=== PATIENT | female | born 1955 | race Caucasian/White ===

== ENCOUNTER 2017-01-24 07:39 | Emergency (ER) | payer OTHER ==
--- NOTE | 2017-01-24 07:55 | EDPHY ---
H & P Stated Complaint: abdominal/flank pain, burning with urination Time Seen by Provider: 01/24/17 07:54 - Personal History Current Tetanus/Diphtheria Vaccine: Yes Current Tetanus Diphtheria and Acellular Pertussis (TDAP): Yes - Medical/Surgical History Hx Asthma: No Hx Chronic Respiratory Disease: No Hx Diabetes: Yes Hx Cardiac Disease: No Hx Renal Disease: No Hx Cirrhosis: No Hx Alcoholism: No Hx HIV/AIDS: No Hx Splenectomy or Spleen Trauma: No Other PMH: Ovarian ca, thyroid ca, hyperglycemia - Social History Smoking Status: Former smoker Constitutional: Initial Vital Signs Temperature (C) 37.1 C 01/24/17 07:43 Heart Rate 76 01/24/17 07:43 Respiratory Rate 18 01/24/17 07:43 Blood Pressure 136/81 H 01/24/17 07:43 O2 Sat (%) 94 01/24/17 07:43 O2 Delivery Mode Room Air Allergies/Adverse Reactions: No Known Allergies Allergy (Unverified 01/24/17 07:42) Home Medications: Medication Instructions Recorded Aspirin 81mg (*) 01/24/17 FLUoxetine 01/24/17 Nystatin 01/24/17 Synthroid 01/24/17 VITAMIN D 01/24/17 Vitamin B-12 01/24/17 Medical Decision Making - Diagnostics Imaging Results: Imaging Impressions Abdomen CT 01/24/17 08:15 Impression: 1. New large bilateral pelvic masses with associated peritoneal implants and implants throughout the abdominal wall are highly suspicious for recurrent metastatic ovarian neoplasm. 2. The bladder mass is deforming and compresses the urinary bladder and distal right ureter. Equivocal minimal obstruction of the upper right urinary tract. 3. Sigmoid diverticulosis. No acute bowel obstruction. 4. Suspect left adrenal gland metastasis. Findings discussed with Emergency Department physician, Aiden Caldwell M.D. on January 24, 2017 at 9:29 a.m. [id number]:l[facility] Imaging: Discussed imaging studies w/ call worker person Radiologist, I viewed and interpreted images myself ED Course/Re-evaluation: CHIEF COMPLAINT: Lower abdominal and back pain HISTORY OF PRESENT ILLNESS: The patient is a 61 y/o female complaining of lower abdominal and back pain for 2 days. She has also had painful urination, headaches, and nausea. She notes she has drank more caffeine than normal. She does take Vicodin for her ovarian cancer, but is not on chemotherapy now. The pain does not radiate to flank or upper abdomen. Denies vomiting, fever, paresthesias, hematuria, history of kidney stones or other pertinent symptoms. REVIEW OF SYSTEMS: A 10 point review of systems was performed and is negative with the exception of the elements mentioned in the history of present illness. PHYSICAL EXAM: HR, BP, O2 Sat, RR. Temp noted General Appearance: Alert, well hydrated, appropriate, and non-toxic appearing. Head: Atraumatic without scalp tenderness or obvious injury Eyes: Pupils equal, round, reactive to light and accommodation, EOMI, no trauma , no injection. Ears: Clear bilaterally, no perforation, normal landmarks Nose: Atraumatic, no rhinorrhea, clear. Throat: Mucus membranes moist. Neck: Supple, nontender, no lymphadenopathy. Respiratory: No retractions, no distress, no wheezes, and no accessory muscle use. Lungs are clear to auscultation bilaterally. Cardiovascular: Regular rate and rhythm, no murmurs, rubs, or gallops. Good capillary refill all extremities. Gastrointestinal: Bladder tenderness on palpation. Abdomen is soft, non- distended, no masses, no rebound, no guarding, no peritoneal signs. Musculoskeletal: Normal active ROM of all extremities, atraumatic. Neurological: Alert, appropriate, and interactive. Non-focal neuro Skin: No rashes, good turgor, no nodules on palpation. Past medical history: Ovarian cancer, thyroid cancer, hyperglycemia Past surgical history: Surgery for tumor removal Family history: Noncontributory Social history: Lives in [place], at bedside, former smoker DIAGNOSTICS/PROCEDURES/CRITICAL CARE TIME: Abdominopelvic CT: 2 pelvic metastases crushing the superior aspect of her bladder. DIFFERENTIAL DIAGNOSIS: The differential diagnosis for the patient's abdominal pain included but was not limited to metastatic ovarian mass, pelvic inflammatory disease, ovarian torsion, urinary tract infection, ectopic , cholecystitis, and appendicitis. MEDICAL DECISION MAKING: The patient is a 61 y/o female presenting with painful urination and lower abdomen and back pain. On exam she has bladder tenderness on palpation. Plan on labs to rule out UTI. 0813: Patient's urinalysis is negative for a UTI. Plan on abdominopelvic CT. 0915: Spoke with Dr. Cao, radiologist, he reports the patient has 2 pelvic metastases crushing the superior aspect of her bladder. Plan on calling her oncologist. 0932: Consulted with Dr. Calderon, oncologist, regarding the patients symptoms and imaging findings. He does not believe there is any treatment to do acutely. She will be seen as an outpatient with her oncologist. 1025: Reassessed patient and discussed imaging findings. She does not want more pain medication. Return precautions provided; patient is comfortable with this plan. - Data Points Laboratory Results: Laboratory Results 01/24/17 08:00 01/24/17 08:00 01/24/17 01/24/17 01/24/17 08:07 08:00 08:00 WBC RBC Hgb POC Hgb 14.3 gm/dL gm/dL (12.6-16.3) Hct POC Hct 42 % % (38-47) MCV MCH MCHC RDW Plt Count MPV Neut % (Auto) Lymph % (Auto) [place] % (Auto) Eos % (Auto) Baso % (Auto) Nucleat RBC Rel Count Absolute Neuts (auto) Absolute Lymphs (auto) Absolute Monos (auto) Absolute Eos (auto) Absolute Basos (auto) Absolute Nucleated RBC Immature Gran % Immature Gran # POC Sodium 138 mEq/L mEq/L (134-144) Sodium 137 mEq/L mEq/L (134-144) POC Potassium 4.2 mEq/L mEq/L (3.3-5.0) Potassium 5.1 mEq/L mEq/L (3.5-5.2) POC Chloride 100 mEq/L mEq/L (97-110) Chloride 102 mEq/L mEq/L (97-110) Carbon Dioxide 21 mEq/l L mEq/l (22-31) Anion Gap 14 mEq/L mEq/L (8-16) POC BUN 12 mg/dL mg/dL (7-23) BUN 12 mg/dL mg/dL (7-23) Creatinine 0.8 mg/dL mg/dL (0.6-1.0) POC Creatinine 0.8 mg/dL mg/dL (0.6-1.0) Estimated GFR > 60 Glucose 100 mg/dL mg/dL (70-100) POC Glucose 108 mg/dL H mg/dL (70-100) Calcium 7.3 mg/dL L mg/dL (8.5-10.4) Total Bilirubin 1.5 mg/dL H mg/dL (0.1-1.4) Conjugated Bilirubin 0.7 mg/dL H mg/dL (0.0-0.5) Unconjugated Bilirubin 0.8 mg/dL mg/dL (0.0-1.1) AST 37 IU/L IU/L (14-46) ALT 21 IU/L IU/L (9-52) Alkaline Phosphatase 80 IU/L IU/L (38-126) Total Protein 7.6 g/dL g/dL (6.3-8.2) Albumin 4.1 g/dL g/dL (3.5-5.0) Lipase 67 IU/L IU/L (23-300) Specimen Hemolysis 170 Urine Color YELLOW Urine Appearance CLEAR Urine pH 6.0 (5.0-7.5) Ur Specific [place] 1.013 (1.002-1.030) Urine Protein NEGATIVE (NEGATIVE) Urine Ketones NEGATIVE (NEGATIVE) Urine Blood NEGATIVE (NEGATIVE) Urine Nitrate NEGATIVE (NEGATIVE) Urine Bilirubin NEGATIVE (NEGATIVE) Urine Urobilinogen 4.0 EU H EU (0.2-1.0) Ur Leukocyte Esterase NEGATIVE (NEGATIVE) Urine RBC 1-3 /hpf /hpf (0-3) Urine WBC NONE SEEN /hpf /hpf (0-3) Ur Epithelial Cells TRACE /lpf /lpf (NONE-1+) Urine Bacteria TRACE /hpf H /hpf (NONE SEEN) Urine Mucus TRACE /lpf /lpf (NONE-1+) Urine Glucose NEGATIVE (NEGATIVE) 01/24/17 08:00 WBC 11.68 10^3/uL H 10^3/uL (3.80-9.50) RBC 4.72 10^6/uL 10^6/uL (4.18-5.33) Hgb 14.2 g/dL g/dL (12.6-16.3) POC Hgb Hct 41.1 % % (38.0-47.0) POC Hct MCV 87.1 fL fL (81.5-99.8) MCH 30.1 pg pg (27.9-34.1) MCHC 34.5 g/dL g/dL (32.4-36.7) RDW 14.6 % % (11.5-15.2) Plt Count 236 10^3/uL 10^3/uL (150-400) MPV 9.3 fL fL (8.7-11.7) Neut % (Auto) 83.3 % H % (39.3-74.2) Lymph % (Auto) 7.8 % L % (15.0-45.0) [place] % (Auto) 6.8 % % (4.5-13.0) Eos % (Auto) 1.1 % % (0.6-7.6) Baso % (Auto) 0.7 % % (0.3-1.7) Nucleat RBC Rel Count 0.0 % % (0.0-0.2) Absolute Neuts (auto) 9.74 10^3/uL H 10^3/uL (1.70-6.50) Absolute Lymphs (auto) 0.91 10^3/uL L 10^3/uL (1.00-3.00) Absolute Monos (auto) 0.79 10^3/uL 10^3/uL (0.30-0.80) Absolute Eos (auto) 0.13 10^3/uL 10^3/uL (0.03-0.40) Absolute Basos (auto) 0.08 10^3/uL 10^3/uL (0.02-0.10) Absolute Nucleated RBC 0.00 10^3/uL 10^3/uL (0-0.01) Immature Gran % 0.3 % % (0.0-1.1) Immature Gran # 0.03 10^3/uL 10^3/uL (0.00-0.10) POC Sodium Sodium POC Potassium Potassium POC Chloride Chloride Carbon Dioxide Anion Gap POC BUN BUN Creatinine POC Creatinine Estimated GFR Glucose POC Glucose Calcium Total Bilirubin Conjugated Bilirubin Unconjugated Bilirubin AST ALT Alkaline Phosphatase Total Protein Albumin Lipase Specimen Hemolysis Urine Color Urine Appearance Urine pH Ur Specific [place] Urine Protein Urine Ketones Urine Blood Urine Nitrate Urine Bilirubin Urine Urobilinogen Ur Leukocyte Esterase Urine RBC Urine WBC Ur Epithelial Cells Urine Bacteria Urine Mucus Urine Glucose Point of Care Test Results: 01/24/17 08:07 POC Sodium 138 POC Potassium 4.2 POC Chloride 100 POC BUN 12 POC Creatinine 0.8 POC Glucose 108 H Departure - Departure Disposition: Home, Routine, Self-Care 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 Follow up with your oncologist early next week. 2. No work until cleared by Dr. Langley 3. Return to the Emergency Department for fever, worsening pain, flank pain, bowel difficulties or failure to improve within 72 hours. Referrals: Monica Shultz MD [Primary Care Provider] - As per Instructions AndJuan bautista MD [Medical Doctor] - As per Instructions Stand Alone Forms: Work Excuse Report Scribed for: Aiden Caldwell Report Scribed by: Ludy Carreon Date of Report: 01/24/17 Time of Report: 07:56
[2017-01-24 08:08] LABS: COLOR YELLOW; LEUKOCYTE ESTERASE,URINE NEGATIVE (NEGATIVE); NITRITE,URINE NEGATIVE (NEGATIVE)
[2017-01-24 08:13] LABS: BACTERIA TRACE /hpf (NONE SEEN); MUCUS TRACE /lpf (NONE-1+)
[2017-01-24 08:14] LABS: WBC,URINE NONE SEEN /hpf (0-3)
[2017-01-24 08:16] LABS: % IMMATURE GRANULYOCYTES 0.3 % (0.0-1.1); ABSOLUTE IMMATURE GRANULOCYTES 0.03 10^3/uL (0.00-0.10); ADD DIFF? NO; ADD MORPH? NO; ADD SCAN? NO; ATYPICAL LYMPHOCYTE FLAG 0 (0-99); FRAGMENT RBC FLAG 0 (0-99); HEMATOCRIT 41.1 % (38.0-47.0); HEMOGLOBIN 14.2 g/dL (12.6-16.3); LEFT SHIFT FLG 0 (0-99); LIPEMIA HEMOLYSIS FLAG 90 (0-99); MEAN CELL HEMOGLOBIN 30.1 pg (27.9-34.1); MEAN CELL HEMOGLOBIN CONCENTR. 34.5 g/dL (32.4-36.7); MEAN CELL VOLUME 87.1 fL (81.5-99.8); MEAN PLATELET VOLUME 9.3 fL (8.7-11.7); PLATELET CLUMPS FLAG 10 (0-99); PLATELET COUNT 236 10^3/uL (150-400); RED BLOOD CELL COUNT 4.72 10^6/uL (4.18-5.33); RED CELL DISTRIBUTION WIDTH 14.6 % (11.5-15.2)
[2017-01-24 08:27] LABS: ALANINE AMINOTRANSFERASE 21 IU/L (9-52); ALBUMIN 4.1 g/dL (3.5-5.0); ALKALINE PHOSPHATASE 80 IU/L (38-126); ANION GAP 14 mEq/L (8-16); ASPARTATE AMINOTRANSFERASE 37 IU/L (14-46); BILIRUBIN,TOTAL 1.5 mg/dL (0.1-1.4); BILIRUBIN-CONJUGATED 0.7 mg/dL (0.0-0.5); BILIRUBIN-UNCONJUGATED 0.8 mg/dL (0.0-1.1); CALCIUM 7.3 mg/dL (8.5-10.4); CARBON DIOXIDE 21 mEq/l (22-31); CHLORIDE 102 mEq/L (97-110); CREATININE 0.8 mg/dL (0.6-1.0); GLOMERULAR FILTRATION RATE > 60; GLUCOSE 100 mg/dL (70-100); POTASSIUM 5.1 mEq/L (3.5-5.2); SODIUM 137 mEq/L (134-144); SPECIMEN HEMOLYSIS 170; TOTAL PROTEIN 7.6 g/dL (6.3-8.2)
[2017-01-24] MEDS ORDERED: IOPAMIDOL (ISOVUE-300) 100 ML BTL ONE (08:47)
[2017-01-24 10:38] VITALS: BP 145/79; PULSE 68; RESP 16; TEMP 98.4; O2SAT 95
== END 2017-01-24 10:39 | disposition home or self-care (01) ==
DX: C79.60 Secondary malignant neoplasm of unspecified ovary (principal); C80.1 Malignant (primary) neoplasm, unspecified; E11.9 Type 2 diabetes mellitus without complications; Z79.82 Long term (current) use of aspirin; Z85.850 Personal history of malignant neoplasm of thyroid; Z87.891 Personal history of nicotine dependence
CPT/HCPCS: 82947-QW; Q9967

== ENCOUNTER 2017-06-28 06:09 | Inpatient (IN) | payer OTHER ==
--- NOTE | 2017-06-28 06:44 | EDPHY ---
H & P Stated Complaint: EPIGASTRIC PAIN X 4 DAYS, N/V BILE X 1 DAY Time Seen by Provider: 06/28/17 06:41 - Personal History Current Tetanus Diphtheria and Acellular Pertussis (TDAP): Yes - Medical/Surgical History Hx Asthma: No Hx Chronic Respiratory Disease: No Hx Diabetes: Yes Hx Cardiac Disease: No Hx Renal Disease: No Hx Cirrhosis: No Hx Alcoholism: No Hx HIV/AIDS: No Hx Splenectomy or Spleen Trauma: No Other PMH: Ovarian ca, thyroid ca, hyperglycemia, TUMOR REMOVAL SX - Social History Smoking Status: Current some day smoker Constitutional: Initial Vital Signs Temperature (C) 36.6 C 06/28/17 06:16 Heart Rate 89 06/28/17 06:16 Respiratory Rate 16 06/28/17 06:16 Blood Pressure 121/71 H 06/28/17 06:16 O2 Sat (%) 95 06/28/17 06:16 O2 Delivery Mode Nasal Cannula O2 (L/minute) 2 Allergies/Adverse Reactions: No Known Allergies Allergy (Verified 06/28/17 06:15) Home Medications: Medication Instructions Recorded Aspirin 81mg (*) 01/24/17 FLUoxetine 01/24/17 Nystatin 01/24/17 Synthroid 01/24/17 VITAMIN D 01/24/17 Vitamin B-12 01/24/17 Medical Decision Making - Diagnostics Imaging: Discussed imaging studies w/ call center recruiter Radiologist, I viewed and interpreted images myself ED Course/Re-evaluation: CHIEF COMPLAINT: Abdominal pain x4 days nausea and vomiting times 24 hr HISTORY OF PRESENT ILLNESS: 62-year-old female with a history of ovarian cancer. She has had 2 surgeries to remove the ovarian cancer after initial recurrence however they were only able to remove part of the cancer on the 2nd surgery. She has been having abdominal pain and saw her doctor recently. They recognize that it is abdominal tumor causing the pain. Additionally, she was told to come to the hospital as she developed a nausea vomiting or obstructive type symptoms which she has now. She has not had a bowel movement in 2 days she think she still passing a small amount of gas. REVIEW OF SYSTEMS: A 10 point review of systems was performed and is negative with the exception of the elements mentioned in the history of present illness. PHYSICAL EXAM: HR, BP, O2 Sat, RR. Temp noted General Appearance: Alert, well hydrated, appropriate, and non-toxic appearing. Head: Atraumatic without scalp tenderness or obvious injury Eyes: Pupils equal, round, reactive to light and accommodation, EOMI, no trauma , no injection. Nose: Atraumatic, no rhinorrhea, clear. Throat: Mmucus membranes moist. Neck: Supple, nontender, no lymphadenopathy. Respiratory: No retractions, no distress, no wheezes, and no accessory muscle use. Lungs are clear to auscultation bilaterally. Cardiovascular: Regular rate and rhythm, no murmurs, rubs, or gallops. Good capillary refill all extremities. Gastrointestinal: Abdomen is soft, nontender, non-distended, no masses, no rebound, no guarding, no peritoneal signs. Musculoskeletal: Normal active ROM of all extremities, atraumatic. Neurological: Alert, appropriate, and interactive. The patient has non-focal cranial nerves, motor, sensory, and cerebellar exam. Skin: No rashes, good turgor, no nodules on palpation. Past medical history: Ovarian cancer Past surgical history: Tumor exoneration surgery it and cholecystectomy Family history: Noncontributory Social history: , employed, does not abuse tobacco drugs or alcohol DIAGNOSTICS/PROCEDURES/CRITICAL CARE TIME: Study: CT of the abdomen and pelvis with IV contrast Indication: Worsening abdominal pain, nausea vomiting with known ovarian cancer rule out obstruction Results: CT scan of the body parts was obtained. The results of the study are small bowel obstruction of ileum due to tumor progress. The study was read by the radiologist, Dr. Peterson. I viewed the images myself on the PACS system. DIFFERENTIAL DIAGNOSIS: The differential diagnosis for the patient's abdominal pain included but was not limited to pelvic inflammatory disease, bowel obstructions secondary to adhesions from her surgeries, urinary tract infection, tumor progression, and appendicitis. MEDICAL DECISION MAKING: This patient is having worsening abdominal pain and nausea and vomiting most likely secondary to progression of her abdominal tumor from ovarian cancer. She does have obstructive type symptoms without any bowel movements for 2 days and very minimal amount of flatus. She started vomiting 24 hr ago and has had abdominal pain for approximately 4-[address] scan was last January. She has also had numerous surgeries and she could have an adhesive process causing obstruction also. CT scan laboratory studies are pending. I will give the patient 1 mg of Dilaudid and 4 mg of Zofran and intravenous fluids. 0752: Reassessed patient and discussed imaging results. CT shows small bowel obstruction of ileum due to tumor. Patient had prior surgeries at [facility] with Dr. Grossman. 0805: Consulted with Dr. Owens, oncology. She recommends admission here and their service will determine management with surgery and chemotherapy. NG tube ordered. Spoke with hospitalist service. Dr. Barry accepts admission. - Data Points Laboratory Results: Laboratory Results 06/28/17 06:52 06/28/17 06:52 06/28/17 06/28/17 06/28/17 06:54 06:52 06:52 WBC RBC Hgb POC Hgb 13.9 gm/dL gm/dL (12.6-16.3) Hct POC Hct 41 % % (38-47) MCV MCH MCHC RDW Plt Count MPV Neut % (Auto) Lymph % (Auto) [place] % (Auto) Eos % (Auto) Baso % (Auto) Nucleat RBC Rel Count Absolute Neuts (auto) Absolute Lymphs (auto) Absolute Monos (auto) Absolute Eos (auto) Absolute Basos (auto) Absolute Nucleated RBC Immature Gran % Immature Gran # PT 16.5 SEC H SEC (12.0-15.0) INR 1.31 H (0.83-1.16) APTT 43.9 SEC H SEC (23.0-38.0) POC Sodium 139 mEq/L mEq/L (135-145) Sodium 141 mEq/L mEq/L (135-145) POC Potassium 3.7 mEq/L mEq/L (3.3-5.0) Potassium 3.8 mEq/L mEq/L (3.5-5.2) POC Chloride 103 mEq/L mEq/L (97-110) Chloride 103 mEq/L mEq/L (97-110) Carbon Dioxide 19 mEq/l L mEq/l (22-31) Anion Gap 19 mEq/L H mEq/L (8-16) POC BUN 11 mg/dL mg/dL (7-23) BUN 12 mg/dL mg/dL (7-23) Creatinine 0.8 mg/dL mg/dL (0.6-1.0) POC Creatinine 0.9 mg/dL mg/dL (0.6-1.0) Estimated GFR > 60 Glucose 138 mg/dL H mg/dL (70-100) POC Glucose 155 mg/dL H mg/dL (70-100) Calcium 6.5 mg/dL L mg/dL (8.5-10.4) Total Bilirubin 1.2 mg/dL mg/dL (0.1-1.4) Conjugated Bilirubin 0.7 mg/dL H mg/dL (0.0-0.5) Unconjugated Bilirubin 0.5 mg/dL mg/dL (0.0-1.1) AST 20 IU/L IU/L (14-46) ALT 41 IU/L IU/L (9-52) Alkaline Phosphatase 98 IU/L IU/L (38-126) Total Protein 6.7 g/dL g/dL (6.3-8.2) Albumin 3.7 g/dL g/dL (3.5-5.0) Lipase 42 IU/L IU/L (23-300) 06/28/17 06:52 WBC 17.17 10^3/uL H 10^3/uL (3.80-9.50) RBC 4.52 10^6/uL 10^6/uL (4.18-5.33) Hgb 12.7 g/dL g/dL (12.6-16.3) POC Hgb Hct 37.8 % L % (38.0-47.0) POC Hct MCV 83.6 fL fL (81.5-99.8) MCH 28.1 pg pg (27.9-34.1) MCHC 33.6 g/dL g/dL (32.4-36.7) RDW 13.9 % % (11.5-15.2) Plt Count 332 10^3/uL 10^3/uL (150-400) MPV 8.9 fL fL (8.7-11.7) Neut % (Auto) 88.9 % H % (39.3-74.2) Lymph % (Auto) 3.8 % L % (15.0-45.0) [place] % (Auto) 6.1 % % (4.5-13.0) Eos % (Auto) 0.2 % L % (0.6-7.6) Baso % (Auto) 0.5 % % (0.3-1.7) Nucleat RBC Rel Count 0.0 % % (0.0-0.2) Absolute Neuts (auto) 15.28 10^3/uL H 10^3/uL (1.70-6.50) Absolute Lymphs (auto) 0.65 10^3/uL L 10^3/uL (1.00-3.00) Absolute Monos (auto) 1.04 10^3/uL H 10^3/uL (0.30-0.80) Absolute Eos (auto) 0.04 10^3/uL 10^3/uL (0.03-0.40) Absolute Basos (auto) 0.08 10^3/uL 10^3/uL (0.02-0.10) Absolute Nucleated RBC 0.00 10^3/uL 10^3/uL (0-0.01) Immature Gran % 0.5 % % (0.0-1.1) Immature Gran # 0.08 10^3/uL 10^3/uL (0.00-0.10) PT INR APTT POC Sodium Sodium POC Potassium Potassium POC Chloride Chloride Carbon Dioxide Anion Gap POC BUN BUN Creatinine POC Creatinine Estimated GFR Glucose POC Glucose Calcium Total Bilirubin Conjugated Bilirubin Unconjugated Bilirubin AST ALT Alkaline Phosphatase Total Protein Albumin Lipase Medications Given: Discontinued Medications Hydromorphone HCl (Dilaudid) 1 mg IVP EDNOW ONE Stop: 06/28/17 06:48 Last Admin: 06/28/17 07:51 Dose: 1 mg Sodium Chloride (Ns) 1,000 mls @ 0 mls/hr IV EDNOW ONE; Wide Open PRN Reason: Protocol Stop: 06/28/17 06:48 Last Admin: 06/28/17 07:50 Dose: 1,000 mls Ondansetron HCl (Zofran) 4 mg IVP EDNOW ONE Stop: 06/28/17 06:48 Last Admin: 06/28/17 07:50 Dose: 4 mg Point of Care Test Results: 06/28/17 06:54 POC Sodium 139 POC Potassium 3.7 POC Chloride 103 POC BUN 11 POC Creatinine 0.9 POC Glucose 155 H Departure - Departure Disposition: [facility] Inpatient Acute Clinical Impression: Small bowel obstruction Ovarian cancer Qualifiers: Laterality: unspecified laterality Qualified Code(s): C56.9 - Malignant neoplasm of unspecified ovary Condition: Fair Referrals: Monica Shultz MD [Primary Care Provider] - As per Instructions
[2017-06-28] MEDS ORDERED: NS 1,000 ML IV ONE (06:47)
[2017-06-28] MEDS ORDERED: HYDROmorphONE/DILAUDID 2 MG/ML INJ IVP ONE (06:47)
[2017-06-28] MEDS ORDERED: ONDANSETRON 4 MG/2 ML VIAL IVP ONE ×2 (06:47→08:49)
[2017-06-28 07:01] LABS: PLATELET COUNT 332 10^3/uL (150-400)
[2017-06-28] MEDS ORDERED: IOPAMIDOL (ISOVUE-300) 100 ML BTL ONE (07:14)
[2017-06-28 07:15] LABS: INR 1.31 (0.83-1.16); PROTIME(PATIENT) 16.5 SEC (12.0-15.0)
[2017-06-28] MEDS ORDERED: LIDOCAINE 2% JELLY 20 ML (UROJECT) ONE (08:41)
[2017-06-28] MEDS ORDERED: HYDROmorphONE/DILAUDID 1 MG/ML INJ IVP ONE (08:49)
[2017-06-28] MEDS ORDERED: HYDROmorphONE/DILAUDID 2 MG/ML INJ ONE (08:51)
[2017-06-28] MEDS ORDERED: ONDANSETRON 4 MG/2 ML VIAL ONE (08:52)
[2017-06-28] MEDS ORDERED: ONDANSETRON DISINTEGRATING 4 MG TAB PO PRN (11:01)
[2017-06-28] MEDS: HYDROmorphone HCL/NS 0.5 MG/ML SYR IVP PRN ×3 (12:03→19:56)
[2017-06-28] MEDS: ONDANSETRON 4 MG/2 ML VIAL IVP PRN ×3 (12:04→19:55)
[2017-06-28] MEDS: NS 1,000 ML IV SCH ×2 (12:10→16:52)
[2017-06-28] MEDS: CEPACOL LOZENGE PO PRN ×3 (12:24→16:51)
--- NOTE | 2017-06-28 12:52 | GCON ---
[f rep st] CONSULTATION DATE OF CONSULTATION: 06/28/2017 REQUESTING PHYSICIAN: Jose Mchugh MD. REASON FOR CONSULTATION: Patient known to Dr. Langley with granulosa-theca cell tumor of the ovary. She presents today with small bowel obstruction. 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 The patient was initially treated with surgical debulk ing with Dr. Grossman in 2007. She had an R0 resection. She had adjuvant chemotherapy in the form of carboplatin/Taxol at that time and then was free of disease until 2012. In 2012, and then again in 2 015, she had local recurrences and was taken back to surgery by Dr. Grossman. I reviewed her most rece nt path from 2014, again consistent with malignant granulosa cell adult tumor. I will mention that h er previous surgeries have been for bowel obstructions in the past. She was most recently seen at our [facility] office on 06/25/2017, she was complaining of some abdominal florencia n for the past [address] scan in January of 2017 was noted. This showed new large bilater al pelvic masses with associated peritoneal and anterior abdominal wall implants, suspicious for recu rrent metastatic ovarian neoplasm. Pelvic mass is deforming compressed urinary bladder and right dis jeremiah ureter. No acute bowel obstruction was seen. Suspect left adrenal gland metastasis. The large cystic mass along the left external iliac vein measured 10 x 8 x 9.6 and displaces the sigmoid colon anteriorly. She had other large masses noted. For the past 3 days, she has had no bowel movements and minimal intake, nausea and vomiting. Her abd ominal CT here done this morning shows small bowel obstruction of the ileum due to tumor progression. The patient currently has an NG tube, IV fluids, and pain control. REVIEW OF SYSTEMS: As per HPI. Otherwise, review of systems negative. She denies fever, shortness of breath, or lower extremity edema. 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 She also has a history of diabetes and gastritis. FAMILY HISTORY: Noncontributory. She has had genetic testing in the past and this was negative. PAST SURGICAL HISTORY: As per HPI. SOCIAL HISTORY: No tobacco, alcohol or drugs. She is accompanied by her today. MEDICATIONS: Have been reviewed in the EMR. PHYSICAL EXAM: VITAL SIGNS: Blood pressure 143/59, pulse is 72 respiration rate 12, saturating 96% on 2 L nasal cannula, temp 36.8. GENERAL: She looks her stated age, uncomfortable, in moderate dist ress due to NG tube and abdominal pain. HEENT: Anicteric. Oropharynx is clear. HEART: Regular ra te and rhythm. LUNGS: Clear anteriorly. ABDOMEN: Distended, but soft. Bowel sounds are minimal. EXTREMITIES: No significant edema. LABS: WBC 17.1, hemoglobin 12.7, platelet count of 332,000. INR 1.3. Sodium 139, potassium 3.8, cr eatinine 0.8, calcium 6.5, total bilirubin 1.2. AST, ALT, lipase, and albumin all within normal limi ts. ASSESSMENT AND PLAN: The patient is a 62-year-old woman known to our service with history of FIGO st age IIIC granulosa-theca cell tumor of the ovary. She has had 2 subsequent surgeries after original diagnosis for obstructive symptoms. She presents again today for small bowel obstruction. 1. Small bowel obstruction. This is a difficult situation. I have reviewed her films with Dr. Ceci Ng. Granulosa cell tumors tend to have lower response to chemotherapy than epithelial tumors. In addition, the size of the tumors are worrisome that even if we give chemo for anatomical obstructi on, this will not cause significant reduction in the size of the known tumors. That being said, this would also be a challenging surgery given the size of the tumors and prior surgeries and risk of adh esions. I think this will need to be a multi-disciplinary decision. One thought may be 1 more surge ry for acute issue and then after surgery, watching her very closely and any new growth would then be challenged with chemotherapy. She could be rechallenged with carboplatin/Taxol, Taxotere, single ag ent bevacizumab or even a thought to put her on an aromatase inhibitor if she is ER positive on path. Dr. Lara Ng will see her in consultation today. In the meantime, we will continue NG tube, IV fluids, and pain control. 2. Ovarian cancer. Granulosa cell tumor as described above. Only previous chemotherapy was in 2007 . She received carboplatin/Taxol for several months. Unsure if she had a response or not, but it to ok her until 2002 to recur, which tends to be very typical of granulosa cell tumors. They are less r esponsive to chemotherapy, but I have had some success in the past and would not take this out of con sideration. 3. Pain due to #1. Continue pain control. 4. History of hyperglycemia. Monitor. Our team will continue to follow along. More than 45 minutes was spent with patient counseling, coor dinating care, and additional talking to surgical consult, medical hospitalist, and nursing staff. /[id number]/MODL
--- NOTE | 2017-06-28 13:15 | PDGENHP ---
History and Physical History and Physical: CC: abdominal pain HISTORY:This patient with known ovarian cancer comes in with a few days of worsening diffuse abdominal pain, nausea, vomiting and no bowel movement. No fever or bleeding, no other acute symptoms. She has a thecal granulosa cell cancer diagnosed in 2012, grade 2 stage IIIC, with two prior surgical resections with debulking, no history of bowel obstruction episodes. She is not on any chemotherapy at present. She last saw Dr Langley in April, and I reviewed the clinic note - there was known intraperitoneal disease, symptoms of mild brief abdominal discomfort 2 or so times a week, but she was thriving well , eating well, with no weight loss and having good bowel function. She apparently had a recent surgical evaluation, and the recommendation was no surgery in the absence of obstruction or other acute need, as there did not seem at that time to be a likely benefit. Ongoing conservative tx was recommended. Notably she also has a hx of stage III medullary thyroid cancer treated in 2007 and is in ongoing remission. Re: surgical fitness/risk eval: No problems with her prior anesthesias, no symptoms or history of heart disease or lung disease but had SHAHIDA not using CPAP and is a former smoker. Bowls weekly without issues, climbs stairs with no cardiopulm sxs, vacuums, does other housework without issues. No hx of thromboembolic dz or bleeding problems. No hx of liver or renal dz, no allergies. ROS: A comprehensive 10 system review revealed no other significant findings PAST MEDICAL HISTORY: Cancers as above SHAHIDA (not using cpap) obesity DM2 depression vitamin D deficiency past tobacco abuse FAMILY MEDICAL HISTORY: Cancers of Lung, prostate, breast, bladder, and esophagus Heart disease SOCIAL HISTORY: to Oscar,,who is at her side now and very supportive former smoker no alcohol or street drugs MEDICATIONS: The patients list has been reconciled by our clinical pharmacist in the EMR. I have reviewed the list; none of these are ordered now due to her obstruction PHYSICAL EXAMINATION: Vital Signs:all stable without fever Examination: General: alert, oriented, good mentation, relaxed Notable obesity Skin: warm, dry, good color, no rash or jaundice HEENT: normal Neck: no mass or jvd; well healed scar from thyroidectomy Resps: relaxed Lungs: diminished but otherwise clear breath sounds Heart: regular, no murmur Abdomen: soft, distended, +BS, mildly tender at this time (after narcotic and with NG to suction) Upper Extremities: normal Lower Extremities: no edema, warm No Bleeding or bruising Neurologic: normal speech/language, normal director specialty, no focal weakness IV site: looks normal LABORATORY DATA: I reviewed CBC, chemistries, coagulation studies. At this point there are some expected abnormalities of sugar and bicarbonate and high white blood cell count but nothing of concern of the needs any treatment or attention at the moment, nothing that would interfere with safe surgery or anesthesia. RADIOLOGY STUDIES: I reviewed the images of her CT scan of abdomen pelvis done today. There are numerous masses within the lower abdomen and other parts of the abdomen to which are quite large the largest around 10 cm diameter. There is clearly a small-bowel obstruction with a transition point. There is nothing to suggest any kind of perforation or abscess. I reviewed the images with Dr. Rojas in his looked at past CTs and there is certainly some progression of disease compared to the last CT. I have also reviewed chest x-ray images done today. The quality of images is somewhat compromised by her obesity but there are no acute cardiopulmonary or other concerning abnormalities. She has an NG tube in place that is difficult to read in terms of the position of the terminus. ASSESSMENT: -Acute small bowel obstruction related to progressive ovarian cancer and previous surgeries for the same -mild dehydration to the above -progressive thecal granulosa cell ovarian cancer -history of sleep apnea, not using CPAP at home -former smoking history but no diagnosis of COPD, no hypoxia, no respiratory symptoms at her current levels of physical activity -type 2 diabetes mellitus with mild elevation of glucose at this time I reviewed these case in detail with Dr. Lauren Owens. Dr. Rojas and has also reviewed the case with Dr. Hyun Ng. At this point the patient has clear cut small-bowel obstruction with progression of tumor and history of surgeries and very likely has significant amount of adhesion. While it is possible that this could be initially treated conservatively and she could potentially even open up this obstruction, I think that the chances of that are certainly fairly limited. Additionally given her progressive tumor disease would expect her to continue to have recurrent bowel obstructions. Additionally as who tumor disease progresses she could get to a point where she has obstructions that would be irreversible. As the patient has really not had medical treatment for her tumor there would be some hope of reducing tumor size but she has very large tumors at this point. I believe the most likely way to successfully reversed her bowel obstruction now and prevent or delay future bowel obstruction in in particular and irreversible bowel obstruction would be to approach her surgically at this time. If she were able to successfully be reversed at this time and debulked at the same time, she could potentially be a candidate for medical therapy for her tumor to keep her disease at [place] and bowel functioning for the longest time. SURGERY AND ANESTHESIA RISK ASSESSMENT: -major issues at this time are history of smoking and sleep apnea, both of which are stable and asymptomatic. These should not delay or prevent surgery but she will need to be monitored carefully in the postop setting with some risk of postoperative respiratory complication -at the moment no other significant specific issues that need to be stabilized or further assessed before safely proceeding with anesthesia and surgery PLANS: -inpatient admission to cancer care unit -IV hydration -NPO with NG suction -will hold her oral medicines at this time -pain and nausea management -DVT prophylaxis measures are ordered -Dr. Hyun Ng will be assessing the patient and make recommendations. I reviewed options and my ID is on the best approach to her situation with the patient and her at this time but will await Dr. Amato assessment and opinion. -and she will be receiving narcotic and potentially surgery with anesthesia, will need to monitor her breathing very closely and she may need some CPAP or BiPAP while she is here -follow sugars closely and manage as indicated
--- NOTE | 2017-06-28 13:56 | PDMN ---
Medical Necessity Medical necessity: C/M review: Patient meets INPT crtieria under MCG M-210 Intestinal obstruction: Acute small bowel obstruction related to progressive ovarian cancer and previous surgeries for the same (seen on CT), mild dehydration, requiring NG tube placement in ED, planned General Surgery consult , ongoing NPO, IV NS 150 ml/hr infusion, IV Dilaudid, IV Zofran, NG tube to suction, comorbid progressive thecal granulosa cell ovarian cancer, history of sleep apnea - not using CPAP at home, former smoking history but no dx COPD, no hypoxia, no respiratory symptoms at her current levels of physical activity, type 2 diabetes. MD anticipates > 2 MN LOS for ongoing med nec for eval and TX of above.
--- NOTE | 2017-06-28 14:08 | GCON ---
[f rep st] CONSULTATION CHIEF COMPLAINT: Ovarian cancer. HISTORY OF PRESENT ILLNESS: The patient is a 62-year-old woman who had a hysterectomy at age 41. Initially thought she had cancer of her right fallopian tube versus ovary, and then was told that she had uterine cancer. She then developed grade IIIC granulosa cell tumor of the ovary and was treated with surgical debulking by Dr. Grossman in 2007. She had adjuvant chemotherapy. She was disease-free until 2012 and in 2012 as well as 2014, she went back to the operating room for debulking. Patient tells me that after her surgery in 2014, Dr. Grossman mentioned he would not ever go back into her abdomen, and she is unsure of any more details. She has had several days of abdominal pain, nausea and vomiting. She ultimately presented to the emergency room. She had a CT scan which showed progressive tumor notably in the left lower quadrant with proximal dilatation. She has had an NG. She has passed some flatus this morning and is feeling better. PAST MEDICAL HISTORY: Medullary thyroid cancer, diabetes, gastritis. PAST SURGICAL HISTORY: As above. In addition, right thyroid lobectomy. SOCIAL HISTORY: She is . She denies tobacco, alcohol or drug use. FAMILY HISTORY: Negative genetic testing, noncontributory. ALLERGIES: No known drug allergies. REVIEW OF SYSTEMS: A 10-point review of systems negative, except per HPI. PHYSICAL EXAMINATION: VITAL SIGNS: 36.8, 72, 143/59, 12, 96% on 2 L. GENERAL : Pleasant, obese woman, sitting up in bed. at bedside. HEENT: Normocephalic. No gross hearing deficits. Mucous membranes moist. Pupils equal and round. No scleral icterus. NG tube draining thin, nonbilious fluid. LUNGS: Clear to auscultation bilaterally. No increased work of breathing. CARDIAC: Regular rate. No peripheral edema. ABDOMEN: Midline incision well healed. She is soft. She is nontender. She is nondistended. Bowel sounds are present. MUSCULOSKELETAL: Normal nails. SKIN: Warm and dry. PSYCHIATRIC : Mood and affect normal. NEUROLOGIC: Grossly intact. IMAGING: I personally reviewed the results of her CT scan and observed that the tumor in the right lower quadrant is smaller. She certainly does have other tumor burden, and the biggest difference between her scan from 01/2017 to today is that she now has proximal dilatation of her small bowel. IMPRESSION AND PLAN: The patient is a 62-year-old woman with metastatic granulosa tumor of the ovary. I do want to discuss the case with Dr. Grossman. If the reason why he does not want to go into her abdomen again is related to numerous adhesions and that the risk of surgery and enterotomies outweighs the potential benefit, this would be important to know versus if she just had disease that was no longer resectable. In that case, if she had progressive disease, but a clear bowel obstruction, she may benefit from a resection for palliative reasons. Another option would be to do a decompressive tube if symptoms escalate. At this point, she is comfortable. She may have clears, as this will come out of the NG tube. We will continue to follow. Thank you for the opportunity to be involved in her care. /[id number]/MODL MTDD
[2017-06-28] MEDS: PANTOPRAZOLE SODIUM 40 MG VIAL IVP SCH (19:57)
[2017-06-29] MEDS: ONDANSETRON 4 MG/2 ML VIAL IVP PRN ×2 (02:27→06:56)
[2017-06-29 04:39] LABS: PLATELET COUNT 239 10^3/uL (150-400)
[2017-06-29] MEDS ORDERED: PROTOCOL CALCIUM 1 DOSE IV PRN (05:13)
[2017-06-29] MEDS: NS 1,000 ML IV SCH ×2 (06:55→14:36)
[2017-06-29] MEDS: HYDROmorphone HCL/NS 0.5 MG/ML SYR IVP PRN ×3 (06:55→16:45)
[2017-06-29] MEDS: PANTOPRAZOLE SODIUM 40 MG VIAL IVP SCH ×2 (10:29→21:21)
[2017-06-29] MEDS: ENOXAPARIN 40 MG/0.4 ML SYR SC SCH (10:29)
--- NOTE | 2017-06-29 12:33 | SOAPPROG ---
AD[facility] Progress Note Assessment/Plan: E&M for ovarian cancer * Granulosa-theca cell tumor of Ovary: diagnosed 2007 tx with surgery and carbo/ taxol then. Last surgery 2014 but no systemic therapy since. Generally has been doing well without treatment until now. Tumor generally not very chemo sensitive. Can check hormone expression and see if hormone therapy might help. * SBO: followed by Dr. Ng. Currently being treated conservatively. She is going to discuss her case with Dr. Grossman. Subjective: Still with abd discomfort although better after NG. Had BM and passing a little gas. Objective: Vital Signs Temp Pulse Resp BP Pulse Ox 36.6 C 73 16 134/80 H 91 L 06/29/17 12:10 06/29/17 12:10 06/29/17 12:10 06/29/17 12:10 06/29/17 12:10 Laboratory Results 06/29/17 04:10 06/29/17 04:10 06/28/17 06/29/17 06/30/17 05:59 05:59 05:59 Intake Total 3643 Output Total 2500 250 Balance 1143 -250 PT 16.5 SEC (12.0-15.0) H 06/28/17 06:52 INR 1.31 (0.83-1.16) H 06/28/17 06:52 Physical Exam - Physical Exam General Appearance: no apparent distress Respiratory: lungs clear Cardiac/Chest: regular rate, rhythm Abdomen: soft, No normal bowel sounds, No non-tender ICD10 Worksheet Patient Problems: Problems Problem Status Onset Ovarian cancer Acute Small bowel obstruction Acute
--- NOTE | 2017-06-29 12:47 | ASMTCMCOM ---
CM Note CM Note Notes: Chart reviewed. 62 year old female admitted via ED for SBO related to hx of ovarian cancer. She has been at home and off chemotherapy and fairly active. Surgery has been consulted but no immediate plan for surgical intervention at this point. Needs to be determined at this time. CM to follow. Date Signed: 06/29/2017 12:46 PM Electronically Signed By:Ekaterina Baker RN
[2017-06-29] MEDS: LEVOTHYROXINE 100 MCG/5 ML SYR IVP SCH (13:54)
--- NOTE | 2017-06-29 13:56 | SOAPPROG ---
SOAP Progress Note Assessment/Plan: Assessment/Plan: 62yo F admitted with SBO secondary to ovarian cancer No nausea and vomiting. Pain controlled NGT to suction Passing flatus this am and small BM NPO but small amounts of clears ok (will get sucked out of NGT) Dr. Ng is reaching out to her previous surgeon Dr. Grossman Appreciate hospitalists and oncologists S: had a BM this morning and was passing gas earlier - none recently. Nausea controlled. Abdominal pain, controlled O: Laying in bed, comfortable, daughter at bedside No increased WOB NGT with 500cc bilious fluid in canister Hypoactive bowel sounds, abdomen soft and relatively nondistended. Tender in RUQ. Previous midline incision well-healed Objective: Vital Signs Temp Pulse Resp BP Pulse Ox 36.6 C 73 16 134/80 H 91 L 06/29/17 12:10 06/29/17 12:10 06/29/17 12:10 06/29/17 12:10 06/29/17 12:10 Laboratory Results 06/29/17 04:10 06/29/17 04:10 06/28/17 06/29/17 06/30/17 05:59 05:59 05:59 Intake Total 3643 Output Total 2500 450 Balance 1143 -450 PT 16.5 SEC (12.0-15.0) H 06/28/17 06:52 INR 1.31 (0.83-1.16) H 06/28/17 06:52 ICD10 Worksheet Patient Problems: Problems Problem Status Onset Ovarian cancer Acute Small bowel obstruction Acute
[2017-06-29] MEDS ORDERED: CALCIUM GLUCONATE 2 GM in NS 50 ML IV ONE (14:19)
[2017-06-29] MEDS: CEPACOL LOZENGE PO PRN (16:20)
--- NOTE | 2017-06-29 18:16 | HOSPPROG ---
Hospitalist Progress Note Assessment/Plan: DIAGNOSES: -Acute small bowel obstruction related to progressive ovarian cancer and previous surgeries for the same -mild dehydration to the above -hypocalcemia, multifactorial -progressive thecal granulosa cell ovarian cancer -history of sleep apnea, not using CPAP at home -former smoking history but no diagnosis of COPD, no hypoxia, no respiratory symptoms at her current levels of physical activity -type 2 diabetes mellitus with mild elevation of glucose at this time PLANS: -continue NG suction at this time -calcium replacements and will continue to monitor electrolytes closely -continue to monitor and manage blood sugars -will repeat abdominal imaging tomorrow with two view abdominal x-rays -awaiting final opinion from surgeons after discussion with Dr. Grossman -I reviewed the case in detail today with Dr. Alba Cuevas. 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: Exam: alert oriented skin warm dry color ok resps not labored lungs clear BSs heart regular abd soft remains diffusely distended and tender, bowel sounds present; NG tube remains in place on suction removing slightly brownish clear gastric fluids limbs warm, no edema iv site ok Laboratory data: On chemistry data she has a mild decrease in bicarbonate without anion gap, and ionized calcium is low at 0.77 White count improved at 10..7, remains anemic Objective: Vital Signs Temp Pulse Resp BP Pulse Ox 36.9 C 85 16 149/67 H 95 06/29/17 16:14 06/29/17 16:14 06/29/17 16:14 06/29/17 16:14 06/29/17 16:14 Laboratory Results 06/29/17 04:10 06/29/17 04:10 06/28/17 06/29/17 06/30/17 06:59 06:59 06:59 Intake Total 3643 300 Output Total 2500 1750 Balance 1143 -1450 PT 16.5 SEC (12.0-15.0) H 06/28/17 06:52 INR 1.31 (0.83-1.16) H 06/28/17 06:52 - Time Spent With Patient Time Spent with Patient: greater than 35 minutes Time Spent with Patient: Greater than 35 minutes spent on this patients care, greater than 50% of time spent counseling, educating, and coordinating care regarding the above mentioned plan. ICD10 Worksheet Patient Problems: Problems Problem Status Onset Ovarian cancer Acute Small bowel obstruction Acute
[2017-06-30] MEDS: HYDROmorphone HCL/NS 0.5 MG/ML SYR IVP PRN ×4 (02:23→15:42)
[2017-06-30 04:40] LABS: PLATELET COUNT 234 10^3/uL (150-400)
[2017-06-30] MEDS: NS 1,000 ML IV SCH ×3 (05:17→20:49)
[2017-06-30] MEDS ORDERED: CALCIUM GLUCONATE 2 GM in NS 50 ML IV ONE (09:00)
[2017-06-30] MEDS: PANTOPRAZOLE SODIUM 40 MG VIAL IVP SCH ×2 (09:07→20:47)
[2017-06-30] MEDS: ENOXAPARIN 40 MG/0.4 ML SYR SC SCH (09:07)
--- NOTE | 2017-06-30 09:57 | SOAPPROG ---
SOAP Progress Note Assessment/Plan: Assessment/Plan: 62yo F admitted with SBO secondary to ovarian cancer Gastrograffin challenge - if fails, then OR for small bowel resection for SBO Dr. Ng spoke with Dr. Langley - Dr. Grossman did not want to operate again because there was not intention to cure surgically. No concern of danger from adhesions. NGT to suction Minimal flatus NPO but small amounts of clears ok (will get sucked out of NGT) Appreciate hospitalists and oncologists. Seen with Dr. Ng. S: still having abdominal pain. no nausea. not passing flatus today O: Sitting at edge of bed, comfortable No increased WOB, CTAB RRR NGT with 500cc red-tinged bilious fluid in canister Hypoactive bowel sounds, abdomen soft and relatively nondistended. Tender in RUQ. Previous midline incision well-healed 06/30/17 15:06 Objective: Vital Signs Temp Pulse Resp BP Pulse Ox 36.6 C 76 16 146/67 H 93 06/30/17 09:43 06/30/17 09:43 06/30/17 09:43 06/30/17 09:43 06/30/17 09:43 Laboratory Results 06/30/17 04:28 06/30/17 04:28 06/29/17 06/30/17 07/01/17 05:59 05:59 05:59 Intake Total 3643 1215 Output Total 2500 3950 Balance 1143 -2735 PT 16.5 SEC (12.0-15.0) H 06/28/17 06:52 INR 1.31 (0.83-1.16) H 06/28/17 06:52 ICD10 Worksheet Patient Problems: Problems Problem Status Onset Ovarian cancer Acute Small bowel obstruction Acute
[2017-06-30] MEDS: ONDANSETRON 4 MG/2 ML VIAL IVP PRN (11:14)
[2017-06-30] MEDS: LEVOTHYROXINE 100 MCG/5 ML SYR IVP SCH (11:37)
--- NOTE | 2017-06-30 14:22 | SOAPPROG ---
S[facility]US[facility] Progress Note Assessment/Plan: E&M for ovarian cancer * Granulosa-theca cell tumor of Ovary: diagnosed 2007 tx with surgery and then carbo/taxol. Last surgery 2014 but no systemic therapy since 2007. Generally has been doing well without treatment until now. This tumor generally not as chemo sensitive. Can check hormone expression and see if hormone therapy might help. * SBO: followed by Dr. Ng. Currently being treated conservatively. SBFT in process and if shows obstruction, will probably need surgery. Subjective: Overall feeling better but not passing much gas. Drank dye for SBFT. Objective: Vital Signs Temp Pulse Resp BP Pulse Ox 36.5 C 80 17 150/72 H 92 06/30/17 12:11 06/30/17 12:11 06/30/17 12:11 06/30/17 12:11 06/30/17 12:11 Laboratory Results 06/30/17 04:28 06/30/17 04:28 06/29/17 06/30/17 07/01/17 05:59 05:59 05:59 Intake Total 3643 1215 Output Total 2500 3950 Balance 1143 -2735 PT 16.5 SEC (12.0-15.0) H 06/28/17 06:52 INR 1.31 (0.83-1.16) H 06/28/17 06:52 Physical Exam - Physical Exam General Appearance: no apparent distress Respiratory: lungs clear Cardiac/Chest: regular rate, rhythm Abdomen: soft, distended, No normal bowel sounds (decreased) ICD10 Worksheet Patient Problems: Problems Problem Status Onset Ovarian cancer Acute Small bowel obstruction Acute
--- NOTE | 2017-06-30 18:51 | HOSPPROG ---
Hospitalist Progress Note Assessment/Plan: DIAGNOSES: -Acute small bowel obstruction is suspected, related to progressive ovarian cancer and previous surgeries for the same -mild dehydration to the above -hypocalcemia, multifactorial -progressive thecal granulosa cell ovarian cancer -history of sleep apnea, not using CPAP at home -former smoking history but no diagnosis of COPD, no hypoxia, no respiratory symptoms at her current levels of physical activity -type 2 diabetes mellitus with mild elevation of glucose at this time PLANS: -continue NG suction at this time -calcium replacements and will continue to monitor electrolytes closely -continue to monitor and manage blood sugars -she has resting abdominal x-ray done this morning with little change, and we will get repeat x-ray several hours after barium infusion this evening to look for possible obstruction -I reviewed case in detail with Dr. Hyun Ng. The patient is still having distension and pain. She is passing some flatus. She does not have an appetite. Again here at this time the possibility of significant obstruction is considered fairly likely but not definitive. Will look at her imaging studies and make further plans for moving forward after that. SUBJECTIVE: Still with a lot of abdominal pain, nausea but no emesis, NG remains in place. Still feels bloated. 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 Metabolic acidosis still present Initial single-view abdominal x-ray today is done and I reviewed the images: There is still bowel gas but not with distention of loops as much as yesterday. Otherwise nonspecific Objective: Vital Signs Temp Pulse Resp BP Pulse Ox 36.7 C 80 16 143/74 H 94 06/30/17 15:47 06/30/17 15:47 06/30/17 15:47 06/30/17 15:47 06/30/17 15:47 Laboratory Results 06/30/17 04:28 06/30/17 04:28 06/29/17 06/30/17 07/01/17 06:59 06:59 06:59 Intake Total 3643 1215 2060 Output Total 2500 3950 1200 Balance 1143 -2735 860 PT 16.5 SEC (12.0-15.0) H 06/28/17 06:52 INR 1.31 (0.83-1.16) H 06/28/17 06:52 - Time Spent With Patient Time Spent with Patient: greater than 35 minutes Time Spent with Patient: Greater than 35 minutes spent on this patients care, greater than 50% of time spent counseling, educating, and coordinating care regarding the above mentioned plan. ICD10 Worksheet Patient Problems: Problems Problem Status Onset Ovarian cancer Acute Small bowel obstruction Acute
[2017-06-30] MEDS: ACETAMINOPHEN 325 MG TAB PO PRN (21:00)
[2017-07-01] MEDS: ONDANSETRON 4 MG/2 ML VIAL IVP PRN ×4 (01:41→21:53)
[2017-07-01] MEDS: NS 1,000 ML IV SCH (04:13)
--- NOTE | 2017-07-01 08:13 | SOAPPROG ---
SOAP Progress Note Assessment/Plan: Assessment/Plan: 62yo F admitted with SBO secondary to ovarian cancer Gastrograffin challenge yesterday - no evidence of obstruction, therapeutic NGT removed Advanced to clear liquids Having bowel movements and passing flatus If recurrence, will recommend operative intervention Appreciate hospitalists and oncologists. Seen with Dr. Ng. S: having bowel movements. was worried about taking NG out last night in case it would have to be replaced. pain improved O: Sitting at edge of bed, comfortable No increased WOB, CTAB RRR + bowel sounds, abdomen soft and relatively nondistended. nontender. Previous midline incision well-healed Objective: Vital Signs Temp Pulse Resp BP Pulse Ox 36.6 C 76 16 138/80 H 95 07/01/17 04:17 07/01/17 04:17 07/01/17 04:17 07/01/17 04:17 07/01/17 04:17 Laboratory Results 06/30/17 04:28 07/01/17 04:34 06/30/17 07/01/17 07/02/17 05:59 05:59 05:59 Intake Total 1215 3202 Output Total 3950 1400 Balance -2735 1802 PT 16.5 SEC (12.0-15.0) H 06/28/17 06:52 INR 1.31 (0.83-1.16) H 06/28/17 06:52 ICD10 Worksheet Patient Problems: Problems Problem Status Onset Ovarian cancer Acute Small bowel obstruction Acute
[2017-07-01] MEDS ORDERED: CALCIUM GLUCONATE 2 GM in NS 50 ML IV ONE (09:00)
[2017-07-01] MEDS: PANTOPRAZOLE SODIUM 40 MG VIAL IVP SCH ×2 (09:46→20:23)
[2017-07-01] MEDS: ENOXAPARIN 40 MG/0.4 ML SYR SC SCH (09:46)
--- NOTE | 2017-07-01 11:11 | HOSPPROG ---
Hospitalist Progress Note Assessment/Plan: DIAGNOSES: -Acute small bowel obstruction is currently resolved; related to progressive ovarian cancer and previous surgeries for the same -mild dehydration to the above -hypocalcemia, multifactorial, improving with replacements -progressive thecal granulosa cell ovarian cancer -history of sleep apnea, not using CPAP at home -former smoking history but no diagnosis of COPD, no hypoxia, no respiratory symptoms at her current levels of physical activity -type 2 diabetes mellitus with normal glucose at this time -history of medullary so all thyroid cancer from 2007 in remission PLANS: -trial of oral liquids with NG out and consider advancing diet if she tolerates it -calcium replacements and will continue to monitor electrolytes closely -continue to monitor and manage blood sugars -she and her have asked what we can do to try and prevent recurrent episodes of obstruction. I reviewed that regular physical activity keeping well hydrated will be important, eating slowly, and treating any obstipation or constipation fairly aggressively. It would be ideal to avoid any kind of surgeries given her previous surgeries in certainly large amounts of adhesion and scarring that will be in place but she does have large tumors and there may come a day when she requires a surgery to treat obstruction. The fewer procedures she has under abdomen clearly the better. She has a tumor that may potentially be amenable to hormonal therapy and she will need to follow up in the clinic with Dr. Langley for this. SUBJECTIVE: Overnight has had decrease in pain associated with significant evacuation of bowels Still mild periumbilical discomfort, appetite improving but still with nausea requiring anti medics Is attempting to start taking in some oral fluids, NG tube is out OBJECTIVE Vitals reviewed: Stable without fever Investigator Vice, my review: Exam: alert oriented, looks more comfortable skin warm dry color ok resps not labored lungs clear BSs heart regular abd soft remains somewhat distended, less tender, bowel sounds present; NG tube out limbs warm, no edema iv site ok Laboratory data: Calcium level is a bit better, still mildly acidotic otherwise stable metabolic panel I reviewed the x-ray image from her overnight barium study, she has contrast all the way to the rectum with no evidence of any obstruction Objective: Vital Signs Temp Pulse Resp BP Pulse Ox 36.6 C 73 16 122/83 H 95 07/01/17 08:15 07/01/17 08:15 07/01/17 08:15 07/01/17 08:15 07/01/17 08:15 Laboratory Results 06/30/17 04:28 07/01/17 04:34 06/30/17 07/01/17 07/02/17 06:59 06:59 06:59 Intake Total 1215 3202 Output Total 3950 1400 3 Balance -2735 1802 -3 PT 16.5 SEC (12.0-15.0) H 06/28/17 06:52 INR 1.31 (0.83-1.16) H 06/28/17 06:52 ICD10 Worksheet Patient Problems: Problems Problem Status Onset Ovarian cancer Acute Small bowel obstruction Acute
[2017-07-01] MEDS: LEVOTHYROXINE 100 MCG/5 ML SYR IVP SCH (11:18)
[2017-07-01] MEDS: HYDROmorphone HCL/NS 0.5 MG/ML SYR IVP PRN (12:53)
--- NOTE | 2017-07-01 13:31 | SOAPPROG ---
ADEN Progress Note Assessment/Plan: E&M for ovarian cancer * Granulosa-theca cell tumor of Ovary: diagnosed 2007 tx with surgery and then carbo/taxol. Last surgery 2014 but no systemic therapy since 2007. Generally has been doing well without treatment until now. This tumor generally not as chemo sensitive. Can check hormone expression and see if hormone therapy might help. * SBO: followed by Dr. Ng. Currently being treated conservatively. SBFT showed no obstruction. If continues to improve, will be able to go home soon and keep her follow up with Dr. Langley Subjective: Getting better. NG out and starting to eat. Objective: Vital Signs Temp Pulse Resp BP Pulse Ox 37.1 C 78 18 129/73 H 95 07/01/17 11:31 07/01/17 11:31 07/01/17 11:31 07/01/17 11:31 07/01/17 11:31 Laboratory Results 06/30/17 04:28 07/01/17 04:34 06/30/17 07/01/17 07/02/17 05:59 05:59 05:59 Intake Total 1215 3202 Output Total 3950 1400 3 Balance -2735 1802 -3 PT 16.5 SEC (12.0-15.0) H 06/28/17 06:52 INR 1.31 (0.83-1.16) H 06/28/17 06:52 Physical Exam - Physical Exam General Appearance: no apparent distress Abdomen: normal bowel sounds, non-tender, soft ICD10 Worksheet Patient Problems: Problems Problem Status Onset Ovarian cancer Acute Small bowel obstruction Acute
[2017-07-01] MEDS: ACETAMINOPHEN 325 MG TAB PO PRN (21:52)
[2017-07-02] MEDS: ONDANSETRON 4 MG/2 ML VIAL IVP PRN ×3 (01:35→11:12)
[2017-07-02] MEDS ORDERED: LEVOTHYROXINE 137 MCG TAB PO SCH (06:00)
[2017-07-02] MEDS ORDERED: CALCIUM GLUCONATE 50 ML IV ONE (07:26)
[2017-07-02] MEDS ORDERED: CALCIUM GLUCONATE 1 GM in D5W 50 ML IV ONE ×2 (08:00→09:00)
[2017-07-02 08:14] VITALS: TEMP 98.3
[2017-07-02] MEDS: ENOXAPARIN 40 MG/0.4 ML SYR SC SCH (08:40)
[2017-07-02] MEDS: PANTOPRAZOLE SODIUM 40 MG VIAL IVP SCH (08:40)
--- NOTE | 2017-07-02 09:02 | SOAPPROG ---
SOAP Progress Note Assessment/Plan: Assessment: Assessment/Plan: 62yo F admitted with SBO secondary to ovarian cancer Gastrograffin challenge no evidence of obstruction, Regular diet May dc home from my perspective if tolerates small amounts of food Low fiber x 2 weeks S: Had gas pains last night after buzz mist. Having bowel movements. Pain improved O: Sitting at edge of bed, comfortable No increased WOB, CTAB RRR + bowel sounds, abdomen soft and relatively nondistended. Non tender Plan: 07/02/17 09:00 Objective: Vital Signs Temp Pulse Resp BP Pulse Ox 36.8 C 77 16 127/78 H 92 07/02/17 08:13 07/02/17 08:13 07/02/17 08:13 07/02/17 08:13 07/02/17 08:13 Laboratory Results 06/30/17 04:28 07/01/17 04:34 07/01/17 07/02/17 07/03/17 05:59 05:59 05:59 Intake Total 3202 1800 Output Total 1400 3 Balance 1802 1797 PT 16.5 SEC (12.0-15.0) H 06/28/17 06:52 INR 1.31 (0.83-1.16) H 06/28/17 06:52 ICD10 Worksheet Patient Problems: Problems Problem Status Onset Ovarian cancer Acute Small bowel obstruction Acute
[2017-07-02 11:43] VITALS: BP 139/77; PULSE 79; RESP 20; O2SAT 94
--- NOTE | 2017-07-02 12:44 | SOAPPROG ---
ADEN Progress Note Assessment/Plan: E&M for ovarian cancer * Granulosa-theca cell tumor of Ovary: diagnosed 2007 tx with surgery and then carbo/taxol. Last surgery 2014 but no systemic therapy since 2007. Generally has been doing well without treatment until now. This tumor generally not as chemo sensitive. Can check hormone expression and see if hormone therapy might help. * SBO: followed by Dr. Ng. Resolved with conservative measures. COk to go home per onc standpoint and keep her follow up with Dr. Langley. Subjective: Ate lunch and tolerating well. No abd pain. Objective: Vital Signs Temp Pulse Resp BP Pulse Ox 36.8 C 79 20 139/77 H 94 07/02/17 11:41 07/02/17 11:41 07/02/17 11:41 07/02/17 11:41 07/02/17 11:41 Laboratory Results 06/30/17 04:28 07/01/17 04:34 07/01/17 07/02/17 07/03/17 05:59 05:59 05:59 Intake Total 3202 1800 Output Total 1400 3 Balance 1802 1797 PT 16.5 SEC (12.0-15.0) H 06/28/17 06:52 INR 1.31 (0.83-1.16) H 06/28/17 06:52 Physical Exam - Physical Exam General Appearance: no apparent distress Cardiac/Chest: regular rate, rhythm Abdomen: normal bowel sounds, non-tender, soft ICD10 Worksheet Patient Problems: Problems Problem Status Onset Ovarian cancer Acute Small bowel obstruction Acute
--- NOTE | 2017-07-02 13:51 | GDS ---
[f rep st] DISCHARGE SUMMARY DISCHARGE DIAGNOSES: 1. Acute small bowel obstruction. 2. Dehydration. 3. Hypocalcemia. 4. Progressive theca granulosa cell ovarian cancer. 5. Obstructive sleep apnea, not using CPAP. 6. Former tobacco history. 7. Type 2 diabetes. 8. History of medullary thyroid cancer. 9. Hypothyroidism. HISTORY OF PRESENT ILLNESS: A 62-year-old female with ovarian cancer, presenting with diffuse abdomi nal pain, nausea, vomiting, and constipation. She denies any fever. She was diagnosed with theca gr anulosa cell cancer in 2012 with 2 prior surgical resections with debulking. She is not currently on chemotherapy. Chest CT showed moderate partial small bowel obstruction involving ileum. This is as sociated with mid anterior pelvic mass. HOSPITAL COURSE BY PROBLEM: 1. Acute small-bowel obstruction: Secondary to pelvic mass. This resolved with conservative measur es. She was followed here by Dr. Ng. She is tolerating p.o. and having bowel movements at this t stacia. I advised her to eat small frequent meals, but to advance slowly. 2. Granulosa-theca cell tumor of ovary: Diagnosed 2007 with surgery and then carbo/Taxol. Her last surgery was in 2014. She will follow up with Dr. Langley. 3. Diabetes, not on any medications. 4. Hypothyroidism. Continue Synthroid. 5. SHAHIDA, not using CPAP. DISPOSITION: Patient is stable for discharge home. DIET: Advance slowly, bland foods, small frequent meals. NEW MEDICATIONS: Zofran p.r.n. FOLLOWUP: Dr. Langley. PHYSICAL EXAMINATION: VITAL SIGNS: Today, temperature 36.8, blood pressure 139/77, heart rate in th e 70s, respirations 20, 94% on room air. GENERAL: Obese female sitting up in bed, no acute distress. HEENT: PERRLA. EOMI. Oropharynx clear. CV: Regular rate and rhythm. No murmurs, gallops, rubs. LUNGS: Clear to auscultation bilaterally anteriorly. ABDOMEN: Obese, soft. Positive bowel sound s throughout. No tenderness. : No Rivera. MUSCULOSKELETAL: 5/5 upper and lower extremity strength . NEUROLOGIC: 2 through 12 intact. PSYCHIATRIC: Alert and oriented x3. /[id number]/MOD
== END 2017-07-02 13:00 | disposition home or self-care (01) | DRG 755 ==
LOC: F1N 09:53
PROVIDERS: ADMIT Internal Medicine; ATTEND Internal Medicine
PROC: 0D9 Gastrointestinal System, Drainage (ICD-10-PCS; principal; 2017-06-28)
DX: C56.9 Malignant neoplasm of unspecified ovary (principal); K56.609 Unspecified intestinal obstruction, unspecified as to partial versus complete obstruction; E86.0 Dehydration; G47.33 Obstructive sleep apnea (adult) (pediatric); E11.9 Type 2 diabetes mellitus without complications; Z85.850 Personal history of malignant neoplasm of thyroid; E83.51 Hypocalcemia; E03.9 Hypothyroidism, unspecified
CPT/HCPCS: 82947-QW; 96374; J0610; J1170; J1650; J2405; Q9967

== ENCOUNTER 2018-02-09 17:49 | Inpatient (IN) | payer OTHER ==
[2018-02-09] MEDS ORDERED: NS 1,000 ML IV ONE (18:03)
--- NOTE | 2018-02-09 18:09 | EDPHY ---
H & P Stated Complaint: nausea/vomiting abd pain. x last night Time Seen by Provider: 02/09/18 17:59 - Personal History Current Tetanus Diphtheria and Acellular Pertussis (TDAP): Yes - Medical/Surgical History Hx Asthma: No Hx Chronic Respiratory Disease: No Hx Diabetes: Yes Hx Cardiac Disease: No Hx Renal Disease: No Hx Cirrhosis: No Hx Alcoholism: No Hx HIV/AIDS: No Hx Splenectomy or Spleen Trauma: No Other PMH: Ovarian ca, thyroid ca, hyperglycemia, TUMOR REMOVAL SX; thyroidectomy - Social History Smoking Status: Current some day smoker Constitutional: Initial Vital Signs Temperature (C) 36.7 C 02/09/18 17:53 Heart Rate 91 02/09/18 17:53 Respiratory Rate 16 02/09/18 17:53 Blood Pressure 148/70 H 02/09/18 17:53 O2 Sat (%) 90 L 02/09/18 17:53 O2 Delivery Mode Room Air Allergies/Adverse Reactions: No Known Allergies Allergy (Verified 06/28/17 06:15) Home Medications: Medication Instructions Recorded Ergocalciferol [Vitamin D2 (*)] 50,000 unit PO WE 06/28/17 FLUoxetine [Prozac 20 MG (*)] 60 mg PO DAILY 06/28/17 Hydrocodone/Acetaminophen [[place] 1 tab PO Q4H PRN 06/28/17 5/325 (*)] Levothyroxine [Synthroid 137 mcg 137 mcg PO DAILY06 06/28/17 (*)] Cyanocobalamin [Vitamin B12 (*)] 5,000 mcg PO DAILY 02/09/18 Medical Decision Making - Diagnostics Imaging Results: Imaging Impressions Abdomen CT 02/09/18 18:07 Impression: 1. Small bowel obstruction, with transition point likely in the anterior right lower quadrant where there are adhesions and pelvic masses. There is stable edema and haziness near the mesenteric root, possibly a consequence of the obstruction. 2. Interval progression of disease with enlargement of pelvic, mesenteric, and retroperitoneal masses. Findings and recommendations discussed with Aiden Caldwell MD at 1910 hour, . Imaging: Discussed imaging studies w/ call center professional Radiologist ED Course/Re-evaluation: CHIEF COMPLAINT: Nausea vomiting constipation HISTORY OF PRESENT ILLNESS: 62-year-old female with ovarian cancer. She has intermittent trouble with constipation. She has not had a reasonable bowel movement in several days maybe up to a week. She had 2 very small efforts this morning. She is now vomiting which started last evening and she has been vomiting throughout the day which is worsened this afternoon. She had similar symptoms not long ago. She feels like it is constipation again. She denies any peritoneal signs. She denies any fevers or chills. REVIEW OF SYSTEMS: A comprehensive 10 system review of systems is otherwise negative aside from elements mentioned in the history of present illness and medical decision making. PHYSICAL EXAM: HR, BP, O2 Sat, RR. Temp noted General Appearance: Alert, well hydrated, appropriate, and non-toxic appearing. Head: Atraumatic without scalp tenderness or obvious injury Eyes: Pupils equal, round, reactive to light and accommodation, EOMI, no trauma , no injection. Ears: Clear bilaterally, no perforation, normal landmarks Nose: Atraumatic, no rhinorrhea, clear. Throat: There is no erythema or exudates, no lesions, normal tonsils, mucus membranes moist. Neck: Supple, 2+ carotid upstroke, nontender, no lymphadenopathy. Respiratory: No retractions, no distress, no wheezes, and no accessory muscle use. Lungs are clear to auscultation bilaterally. Cardiovascular: Regular rate and rhythm, no murmurs, rubs, or gallops. Bilateral carotid, radial, dorsalis pedis, and posterior tibial pulses intact. Good capillary refill all extremities. Gastrointestinal: Abdomen is soft, nontender, non-distended, no masses, no rebound, no guarding, no peritoneal signs. Musculoskeletal: Normal active ROM of all extremities, atraumatic. Neurological: Alert, appropriate, and interactive. The patient has normal DTRs and non-focal cranial nerves, motor, sensory, and cerebellar exam. Skin: No rashes, good turgor, no nodules on palpation. Past medical history: Ovarian cancer and recurrent constipation Past surgical history: ovarian cancer Family history: Noncontributory Social history: , not employed, does not abuse tobacco drugs and alcohol DIAGNOSTICS/PROCEDURES/CRITICAL CARE TIME: Study: CT of the abdomen/pelvis Indication: Results: CT scan of the abdomen/pelvis was obtained. The results of the study are worsening ovarian cancer, small bowel obstruction with transition in the RLQ. The study was read by the radiologist, Dr. Be. I viewed the images myself on the PACS system. DIFFERENTIAL DIAGNOSIS: The differential diagnosis for the patient's abdominal pain included but was not limited to ovarian cyst, pelvic inflammatory disease, ovarian torsion, urinary tract infection, ectopic , cholecystitis, and appendicitis. MEDICAL DECISION MAKING: This patient is a 62 year old female with ovarian cancer. She also has recurrent chronic constipation. She was recently started on iron and calcium supplement and she believes that that may have caused her recent bout of constipation. She is to the point now where not only she is not having any reasonable bowel movements but she is having nausea vomiting and vomiting up bile. Laboratory studies and CT scan are pending. I have given her 30 Ketoralac and 4 of Zofran. WBC elevated at 15,000. Patient is mildly anemic, this is common for her. Labs otherwise largely unremarkable. 19:[address] Be, radiologist. CT abdomen/pelvis shows evidence of worsening ovarian cancer and small bowel obstruction with transition in the RLQ , likely from adhesions. Plan to consult with oncology and general surgery. 19:[address] Ng, general surgeon. Plan to admit to hospitalist service. Dr. Ng will consult. 19:[address] Torrez, oncologist. Plan to admit as above for small bowel obstruction and ovarian cancer with metastasis. 19:28 Consulted with hospitalist service. Dr. Barry accepts admission. - Data Points Laboratory Results: Laboratory Results 02/09/18 18:00 02/09/18 18:00 02/09/18 02/09/18 02/09/18 18:18 18:00 18:00 WBC 14.87 10^3/uL H 10^3/uL (3.80-9.50) RBC 4.86 10^6/uL 10^6/uL (4.18-5.33) Hgb 13.1 g/dL g/dL (12.6-16.3) POC Hgb 13.9 gm/dL gm/dL (12.6-16.3) Hct 40.0 % % (38.0-47.0) POC Hct 41 % % (38-47) MCV 82.3 fL fL (81.5-99.8) MCH 27.0 pg L pg (27.9-34.1) MCHC 32.8 g/dL g/dL (32.4-36.7) RDW 15.4 % H % (11.5-15.2) Plt Count 373 10^3/uL 10^3/uL (150-400) MPV 8.9 fL fL (8.7-11.7) Neut % (Auto) 84.9 % H % (39.3-74.2) Lymph % (Auto) 8.7 % L % (15.0-45.0) [place] % (Auto) 5.3 % % (4.5-13.0) Eos % (Auto) 0.3 % L % (0.6-7.6) Baso % (Auto) 0.5 % % (0.3-1.7) Nucleat RBC Rel Count 0.0 % % (0.0-0.2) Absolute Neuts (auto) 12.62 10^3/uL H 10^3/uL (1.70-6.50) Absolute Lymphs (auto) 1.29 10^3/uL 10^3/uL (1.00-3.00) Absolute Monos (auto) 0.79 10^3/uL 10^3/uL (0.30-0.80) Absolute Eos (auto) 0.04 10^3/uL 10^3/uL (0.03-0.40) Absolute Basos (auto) 0.08 10^3/uL 10^3/uL (0.02-0.10) Absolute Nucleated RBC 0.00 10^3/uL 10^3/uL (0-0.01) Immature Gran % 0.3 % % (0.0-1.1) Immature Gran # 0.05 10^3/uL 10^3/uL (0.00-0.10) POC Sodium 139 mEq/L mEq/L (135-145) Sodium 138 mEq/L mEq/L (135-145) POC Potassium 4.7 mEq/L mEq/L (3.3-5.0) Potassium 4.9 mEq/L mEq/L (3.3-5.0) POC Chloride 105 mEq/L mEq/L (97-110) Chloride 103 mEq/L mEq/L (97-110) Carbon Dioxide 18 mEq/l L mEq/l (22-31) Anion Gap 17 mEq/L H mEq/L (6-14) POC BUN 18 mg/dL mg/dL (7-23) BUN 14 mg/dL mg/dL (7-23) Creatinine 0.8 mg/dL mg/dL (0.6-1.0) POC Creatinine 0.8 mg/dL mg/dL (0.6-1.0) Estimated GFR > 60 Glucose 141 mg/dL H mg/dL (70-100) POC Glucose 144 mg/dL H mg/dL (70-100) Calcium 7.4 mg/dL L mg/dL (8.5-10.4) Total Bilirubin 1.0 mg/dL mg/dL (0.1-1.4) Conjugated Bilirubin 0.5 mg/dL mg/dL (0.0-0.5) Unconjugated Bilirubin 0.5 mg/dL mg/dL (0.0-1.1) AST 32 IU/L IU/L (14-46) ALT 17 IU/L IU/L (9-52) Alkaline Phosphatase 92 IU/L IU/L (38-126) Total Protein 7.3 g/dL g/dL (6.3-8.2) Albumin 4.0 g/dL g/dL (3.5-5.0) Lipase 52 IU/L IU/L (23-300) Specimen Hemolysis 138 Medications Given: Discontinued Medications Sodium Chloride (Ns) 1,000 mls @ 0 mls/hr IV EDNOW ONE; Wide Open PRN Reason: Protocol Stop: 02/09/18 18:04 Last Admin: 02/09/18 18:14 Dose: 1,000 mls Ketorolac Tromethamine (Toradol) 30 mg IVP EDNOW ONE Stop: 02/09/18 18:12 Last Admin: 02/09/18 18:14 Dose: 30 mg Ondansetron HCl (Zofran) 4 mg IVP EDNOW ONE Stop: 02/09/18 18:13 Last Admin: 02/09/18 18:14 Dose: 4 mg Point of Care Test Results: Chemistry 02/09/18 18:18 POC Sodium 139 mEq/L mEq/L (135-145) POC Potassium 4.7 mEq/L mEq/L (3.3-5.0) POC Chloride 105 mEq/L mEq/L (97-110) POC BUN 18 mg/dL mg/dL (7-23) POC Creatinine 0.8 mg/dL mg/dL (0.6-1.0) POC Glucose 144 mg/dL H mg/dL (70-100) ISTAT H&H 02/09/18 18:18 POC Hgb 13.9 gm/dL gm/dL (12.6-16.3) POC Hct 41 % % (38-47) Departure - Departure Disposition: [facility] Inpatient Acute Clinical Impression: Small bowel obstruction Ovarian cancer Qualifiers: Laterality: unspecified laterality Qualified Code(s): C56.9 - Malignant neoplasm of unspecified ovary Condition: Fair Referrals: Monica Shultz MD [Primary Care Provider] - As per Instructions Report Scribed for: Aiden Caldwell Report Scribed by: Luciana Kingston Date of Report: 02/09/18 Time of Report: 19:20
[2018-02-09] MEDS ORDERED: KETOROLAC 30 MG/1 ML SDV IVP ONE (18:11)
[2018-02-09] MEDS ORDERED: ONDANSETRON 4 MG/2 ML VIAL ONE (18:12)
[2018-02-09] MEDS ORDERED: ONDANSETRON 4 MG/2 ML VIAL IVP ONE (18:12)
[2018-02-09] MEDS ORDERED: KETOROLAC 30 MG/1 ML SDV ONE (18:12)
[2018-02-09 18:17] LABS: PLATELET COUNT 373 10^3/uL (150-400)
[2018-02-09] MEDS ORDERED: IOPAMIDOL (ISOVUE-300) 100 ML BTL ONE (18:18)
[2018-02-09] MEDS ORDERED: ACETAMINOPHEN 650 MG SUPP PR PRN (20:29)
[2018-02-09] MEDS: HYDROmorphONE/DILAUDID 1 MG/ML INJ IVP PRN (21:40)
[2018-02-09] MEDS: NS 1,000 ML IV SCH (21:40)
[2018-02-09] MEDS: ONDANSETRON 4 MG/2 ML VIAL IVP PRN (21:40)
--- NOTE | 2018-02-09 21:48 | GHP ---
DATE OF ADMISSION: 02/09/2018 Ms. Cruz is a 62-year-old female, history of ovarian cancer, who has been followed off chemother apy. She presents with nausea, vomiting, and abdominal distention. She was admitted here in June o this year with a small-bowel obstruction that was managed nonoperatively. She was followed by Dr. Lara Ng at that time. She presents today with abdominal pain, abdominal distention, nausea, vomiting. She has not been abl e to hold anything down. Has not had fever or chills. Her last normal bowel movement was at least s everal days ago, maybe even a week ago. She had a couple of small bowel movements this morning. She has been vomiting today. No fever, chills. Last chemotherapy 10 years ago. REVIEW OF SYSTEMS: Complete 10-point review of systems conducted, negative except as noted in the HP I. PAST MEDICAL HISTORY: 1. Ovarian cancer, initially treated with chemotherapy and radiation, then no treatment, then surger y. 2. Thyroid cancer, status post thyroidectomy. 3. SHAHIDA. 4. Vitamin D deficiency. 5. History of tobacco use. SOCIAL HISTORY: She is to [place], lives in [place]. She still smokes the occasional cigarette. No alcohol. ALLERGIES: No known drug allergies. HOME MEDICATIONS: Cyanocobalamin, ergocalciferol, fluoxetine, [place], levothyroxine. FAMILY HISTORY: Reviewed and unremarkable. PHYSICAL EXAMINATION: VITAL SIGNS: Temp 36.7, blood pressure 148/70, pulse 91, breathing 16 times a minute, 90% on room air. GENERAL: No acute distress. HEENT: Sclerae anicteric. Oropharynx clear . Mucous membranes are moist. NECK: Supple, without lymphadenopathy or JVD. LUNGS: Clear to ausc ultation bilaterally. HEART: S1 and S2. ABDOMEN: Soft. It is distended. There is no rebound or guarding. It is tender. Bowel sounds are present, but hypoactive. EXTREMITIES: Lower extremities are without edema. Calves nontender. SKIN: Without rash. NEUROLOGIC: Nonfocal. LABORATORY DATA: White count is 15, with a left shift. Hematocrit 40, platelets are 372,000. Sodiu m 138, potassium 4.9, chloride 103, bicarb 18, BUN 14, creatinine 0.8, glucose 141. LFTs normal. Li pase normal. CT of the abdomen reviewed, interpreted by me, shows small bowel obstruction, transit ion point in the anterior right lower quadrant, adhesions and pelvic masses. Interval progression o f disease, and large mid pelvic mesenteric and retroperitoneal masses. Abdominal film, images review ed and interpreted by me, shows NG tube. I discussed the case with Dr. Aiden Caldwell. ASSESSMENT/PLAN: A 62-year-old female with ovarian cancer, small bowel obstruction. 1. Small bowel obstruction, likely secondary to ovarian cancer. Will manage her with n.p.o., IV flu ids. She can have , NG tube, antiemetics, and pain medicines. For now keep the NG tube on suction. She does not have peritoneal signs at this time. 2. Metabolic acidosis, likely dehydration or ketosis. We will follow. She does not have peritoneal signs. 3. Ovarian cancer. This is progressive. It sounds like it has been slowly going. I did not discus s this with her. Oncology will see her tomorrow. 4. Tobacco use. Recommend cessation. 5. Prophylaxis with low molecular weight heparin. DISPOSITION: Inpatient status. /[id number]/MODL
[2018-02-10] MEDS: PROMETHAZINE HCL 25 MG/ML INJ IVP PRN ×2 (00:01→10:29)
[2018-02-10] MEDS: HYDROmorphONE/DILAUDID 1 MG/ML INJ IVP PRN ×2 (04:42→13:49)
[2018-02-10] MEDS: NS 1,000 ML IV SCH ×3 (04:43→22:38)
[2018-02-10 04:53] LABS: PLATELET COUNT 250 10^3/uL (150-400)
--- NOTE | 2018-02-10 08:16 | HOSPPROG ---
Hospitalist Progress Note Assessment/Plan: #Small bowel obstruction: transition point in anterior RLQ associated with adhesion and pelvis mass, NG with 500ml out since admit, non-peritoneal abdomen - Continue NG tube to suction, IVF, pain meds, anti-emetics - If not responding to conservative mgmt, consider venting g-tube vs surgical resection #Ovarian cancer: progression of disease on CT this admission - Onc following - Pall care if pt amenable #Hypocalcemia - Replete slowly to avoid constipation #Leukocytosis: resolved #AGMA: resolved with IVF, likely ketosis/dehydration #Hypothyroidism: - Check TSH, continue home replacement VTE ppx: LMWH Code: full Dispo: remain inpatient for management of SBO, not tolerating PO Subjective: Doing ok, abdominal pain a bit better. Passing flatus but no BM. Objective: Vital Signs Temp Pulse Resp BP Pulse Ox 36.6 C 70 16 134/70 H 94 02/10/18 07:45 02/10/18 07:45 02/10/18 07:45 02/10/18 07:45 02/10/18 07:45 Laboratory Results 02/10/18 04:18 02/10/18 04:18 02/09/18 02/10/18 02/11/18 05:59 05:59 05:59 Intake Total 2350 Output Total 710 Balance 1640 - Physical Exam Constitutional: no apparent distress, appears nourished, not in pain Eyes: PERRL, anicteric sclera, EOMI Ears, Nose, Mouth, Throat: moist mucous membranes, hearing normal, ears appear normal, no oral mucosal ulcers Cardiovascular: regular rate and rhythym, no murmur, rub, or gallop Respiratory: no respiratory distress, no rales or rhonchi, clear to auscultation Gastrointestinal: tenderness (lower abdomen), distension, other (absent bowel sounds) Skin: no rashes or abrasions, no fluctuance, no induration Musculoskeletal: full muscle strength, no muscle tenderness, normal joint ROM Neurologic: AAOx3, sensation intact bilaterally Psychiatric: interacting appropriately, not anxious, not encephalopathic, thought process linear ICD10 Worksheet Patient Problems: Problems Problem Status Onset Ovarian cancer Acute Small bowel obstruction Acute
[2018-02-10] MEDS ORDERED: CALCIUM GLUCONATE 50 ML IV ONE (08:31)
[2018-02-10] MEDS ORDERED: CALCIUM GLUCONATE 1 GM in D5W 50 ML IV ONE (09:00)
[2018-02-10] MEDS: ONDANSETRON 4 MG/2 ML VIAL IVP PRN ×2 (09:12→13:50)
--- NOTE | 2018-02-10 09:55 | SOAPPROG ---
SOAP Progress Note Assessment/Plan: Assessment/Plan: 62yo F with ovarian cancer admitted with recurrent SBO Passing flatus this am NGt to suction, 500 in canister Gastrografin challenge test: Give 100 mL of Gastrografin mixed with 50 mL water via NG tube. Clamp NG tube. X-ray in 4 hr. If contrast seen in colon or patient has a bowel movement, then remove NG tube. If contrast is not seen in colon or patient has nausea during the trial, return NG tube to suction. Seen with Dr. Ng. S: Patient still has abdominal discomfort, nausea improved since NG tube placed. No vomiting since admission. Passing gas this morning O: Lying in bed, comfortable, no acute distress Left nare NG tube, approximately 500 cc bilious fluid in canister. No increased work of breathing Few bowel sounds present, abdomen softly distended, nontender. No rebound or guarding. 02/15/18 07:16 Objective: Vital Signs Temp Pulse Resp BP Pulse Ox 36.6 C 70 16 134/70 H 94 02/10/18 07:45 02/10/18 07:45 02/10/18 07:45 02/10/18 07:45 02/10/18 07:45 Laboratory Results 02/10/18 04:18 02/10/18 04:18 02/09/18 02/10/18 02/11/18 05:59 05:59 05:59 Intake Total 2350 Output Total 710 Balance 1640 ICD10 Worksheet Patient Problems: Problems Problem Status Onset Ovarian cancer Acute Small bowel obstruction Acute
--- NOTE | 2018-02-10 09:58 | PDMN ---
Medical Necessity Medical necessity: [facility] [place] M210 Intestinal Obstruction: 62 yo w/ SBO 2nd ovarian ca with mets and metabolic acidosis most likely due to dehydration, IP status. Tx w/ IVF, NG, consider surg if not resolved, IV pain meds and antiemetics. Anticipate>2MN for ongoing monitoring and tx.
--- NOTE | 2018-02-10 12:01 | GCON ---
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 To review, she was diagnosed with this dise ase in 2007, and underwent a surgical debulking. She received adjuvant carboplatin and Taxol and was diagnosed with recurrent disease in 2012. 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 She was admitted in June of 2017, wit h a small-bowel obstruction, she was treated conservatively with resolution of symptoms. She, tra cardona, over the last couple of days developed nausea and abdominal distress, as well as some vomiting. L ast bowel movement had been several days ago. She came to the emergency room and was admitted and ab dominal CT scan showed evidence of a small bowel obstruction with a transition point likely in the an terior right lower quadrant where there are adhesions and pelvic masses. Compared to a study from [facility] of 2018, there was interval progression of disease with enlargement of pelvic, mesenteric, and re troperitoneal masses. The largest pelvic mass measured 10.6 x 11.1, previously measuring 9.3 x 9.5. She has had placement of an NG tube and is comfortable at this time with some mild abdominal tendern ess. PAST MEDICAL HISTORY: Significant for her granulosa cell tumor. She also has history of a medullary thyroid cancer treated with thyroidectomy. She has a history of sleep apnea, vitamin D deficiency. SOCIAL HISTORY: She is an occasional smoker. She is , lives in [place]. FAMILY HISTORY: Noncontributory. My understanding is she has had genetic testing, which has been un remarkable. REVIEW OF SYSTEMS: Negative, except as discussed in the HPI. PHYSICAL EXAMINATION: GENERAL: Today, she is pleasant female, alert, with an NG tube in. VITAL SIG NS: Blood pressure 134/70. She is afebrile. HEENT: She is not icteric. NG tube is in place. SHINE GS: Clear. CARDIAC: Unremarkable. ABDOMEN: Obese. Decreased bowel sounds. No obvious masses. EXTREMITIES: Unremarkable. NEUROLOGIC: Nonfocal. LABORATORY DATA: White count on admission was 14,000, today is 7.8, hemoglobin 10.5, hematocrit 33, platelets are 250,000. Chemistry panel shows a calcium of 6.4, glucose of 118, albumin is 4. IMPRESSION: Patient with granulosa cell tumor, presenting with a bowel obstruction. PLAN: To treat conservatively. Surgical consultation has been obtained. It is unclear whether an a dditional surgery would be helpful in terms of relieving her obstruction. She is hypocalcemic and th is is being repleted. She is hypothyroid and replacement will be continued. Our service will follow with you. /[id number]/MODL
--- NOTE | 2018-02-10 13:12 | GCON ---
DATE OF CONSULTATION: 02/09/2018 CHIEF COMPLAINT: Small bowel obstruction. HISTORY OF PRESENT ILLNESS: The patient is a 62-year-old woman whom I first met in June of 2017. S he has a history of a hysterectomy at age 41. 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 She was treated with surgical debulking in 2007 and had adjuvant chemotherapy. She was dis ease-free until 2012 and had 2 additional surgeries, one in 2012 and one in 2014 for debulking. She developed a small bowel obstruction in June of 2017. At that time, I contacted Dr. Grossman to see ab out her abdomen because the patient had told me that he would never go back into her abdomen. She co ntinues to have progressive tumor, which is also noted on CT scan from today. She started developing the bowel obstruction yesterday and today started throwing up. Due to her experience with this, she presented to the ER. PAST MEDICAL HISTORY: Medullary thyroid cancer, diabetes, gastritis, uterine cancer, granulosa cell ovarian cancer. PAST SURGICAL HISTORY: As above and right thyroid lobectomy. SOCIAL HISTORY: She is . She denies tobacco, alcohol, or drug use. FAMILY HISTORY: Negative genetic testing. ALLERGIES: No known drug allergies. REVIEW OF SYSTEMS: Ten-point review of systems negative, except per HPI. PHYSICAL EXAM: VITAL SIGNS: Afebrile, 85, 128/67, 19, 97%. GENERAL: Pleasant, obese woman sitting up on gurney, appears comfortable. HEENT: Normocephalic. No gross hearing deficits. Mucous membr anes moist. Pupils equal and round. No scleral icterus. LUNGS: Clear to auscultation bilaterally. No increased work of breathing. CARDIAC: Regular rate. ABDOMEN: Previous surgical incisions. Holden wel sounds are hypoactive. She is soft. IMPRESSION: The patient is a 62-year-old with recurrent small-bowel obstruction due to progressive t umors, as well as possibly due to adhesions. I am hoping that this will resolve with NG decompressio n. 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 I will continue to follow. /[id number]/MODL
--- NOTE | 2018-02-10 14:15 | ASMTCMCOM ---
CM Note CM Note Notes: Patient plan of care reviewed in rpunds. Conservative management of SBO in this 62 year old female with known history of ovarian cancer. Previous SBO in June of this year resolved without intervention. Surgery following. CM to follow for needs. Plan: TBD Date Signed: 02/10/2018 02:15 PM Electronically Signed By:Ekaterina Baker RN
[2018-02-10] MEDS: ENOXAPARIN 40 MG/0.4 ML SYR SC SCH (18:25)
[2018-02-11] MEDS: PROMETHAZINE HCL 25 MG/ML INJ IVP PRN (02:29)
[2018-02-11] MEDS: NS 1,000 ML IV SCH (07:19)
[2018-02-11] MEDS: ENOXAPARIN 40 MG/0.4 ML SYR SC SCH (08:37)
--- NOTE | 2018-02-11 08:53 | SOAPPROG ---
SOAP Progress Note Assessment/Plan: Assessment: 62 yo with progressive ovarian cancer and SBO Gastrograffin challenge test yesterday and contrast rapidly reached colon without obvious stricture Passing flatus and tolerating clears Suspect she will be able to discharge home and advance diet slowly at home S: Multiple bowel movements. Feeling better Plan: 02/11/18 08:51 Objective: Vital Signs Temp Pulse Resp BP Pulse Ox 36.8 C 70 16 114/59 L 95 02/11/18 07:58 02/11/18 07:58 02/11/18 07:58 02/11/18 07:58 02/11/18 07:58 Laboratory Results 02/10/18 04:18 02/11/18 04:46 02/10/18 02/11/18 02/12/18 05:59 05:59 05:59 Intake Total 2350 1535 2240 Output Total 710 Balance 1640 1535 2240 Physical Exam - Physical Exam General Appearance: no apparent distress, obese EENT: PERRL/EOMI, normal ENT inspection, No scleral icterus (R), No scleral icterus (L), No hearing deficit Respiratory: chest non-tender, lungs clear, normal breath sounds Cardiac/Chest: regular rate, rhythm Abdomen: normal bowel sounds, non-tender, soft Skin: normal color, warm/dry Extremities: normal range of motion Neuro/Psych: no motor/sensory deficits, normal mood/affect ICD10 Worksheet Patient Problems: Problems Problem Status Onset Ovarian cancer Acute Small bowel obstruction Acute
[2018-02-11] MEDS ORDERED: CALCIUM GLUCONATE 2 GM in D5W 50 ML IV ONE (10:12)
--- NOTE | 2018-02-11 10:52 | SOAPPROG ---
SOAP Progress Note Assessment/Plan: Assessment: 1.Granulosa cell tumor progressive with bowel obstruction, now resolved 2, hypocalcemia, long standing, mg ok, vitamin d level pending Plan:Home today, follow up PCP and Dr Langley 02/11/18 10:46 Subjective: Feels ok Objective: Vital Signs Temp Pulse Resp BP Pulse Ox 98.2 F 70 16 114/59 L 95 02/11/18 07:58 02/11/18 07:58 02/11/18 07:58 02/11/18 07:58 02/11/18 07:58 Laboratory Results 02/10/18 04:18 02/11/18 04:46 02/10/18 02/11/18 02/12/18 05:59 05:59 05:59 Intake Total 2350 1535 2240 Output Total 710 Balance 1640 1535 2240 ICD10 Worksheet Patient Problems: Problems Problem Status Onset Ovarian cancer Acute Small bowel obstruction Acute
[2018-02-11 12:17] VITALS: BP 128/65
[2018-02-11] MEDS ORDERED: ACETAMINOPHEN 325 MG TAB PO PRN (13:18)
--- NOTE | 2018-02-11 14:28 | ASMTCMCOM ---
CM Note CM Note Notes: Patient plan of care reviewed in rounds. Her SBO resolving. Attempted to see her to relay information regarding palliative care for support but she has had a headache and other disturbances. Literature left with her and her regarding palliative care. She shares with us she has 3 children and [address] her CT scan her disease is showing progression. Normally living independently with her . CM available should needs arise. Plan: Likely to dc home independently when medically cleared for discharge. Date Signed: 02/11/2018 02:27 PM Electronically Signed By:Ekaterina Baker RN
--- NOTE | 2018-02-11 15:37 | PDDCSUM ---
Discharge Summary Discharge Summary: Date of Admission: 02/09/2018 Date of Discharge: 02/11/2018 Consultants: general surgery, oncology Procedures/Studies: 1. CT abd/pelvis with IV contrast - SBO with transition point in anterior RLQ where there are adhesions and pelvic masses, interval progression of cancer with enlargement of pelvic, mesenteric, and retroperitoneal masses 2. Gastrograffin challenge - contrast throughout the small bowel and colon without obstruction 3. NG tube placement, now removed Discharge Diagnoses: 1. Malignant small bowel obstruction 2. Hypocalcemia 3. Metastatic ovarian cancer 4. AGMA, resolved 5. Hypothyroidism Brief Hospital Course: 62yo F with history of metastatic ovarian cancer presented with n/v and abdominal distention found to have SBO with transition point in anterior RLQ associated with adhesions and pelvic masses. This is her second SBO. She responded quickly to conservative management. Gastrograffin challenge showed contrast in colon so NG removed. She was tolerating PO with no n/v at time of discharge. Of note, she is quite hypocalcemic which is rather chronic for her. Her magnesium level is normal. A vitamin D level is pending. Lastly, CT this admission does show radiographic progression of metastatic ovarian cancer. Medications: Please refer to EMR for complete list. No changes were made this admission. Follow Up Plan: 1. PCP and oncology clinic visits 2. Consider palliative care referral, discussed as inpatient but she wants to think about this 3. Follow up vitamin D level, consider cautious calcium repletion given her Physical Exam: Vitals reviewed, afebrile and normotensive. Alert and oriented, rrr without m/r/g, lungs clear, abdomen soft with improving bowel sounds, no rash, no mucositis.
--- NOTE | 2018-02-11 15:41 | ASMTLACE ---
LACE Length of stay for Answers: 1 day current admission Acuity / Level of Answers: Yes Care: Did the patient have an inpatient admission? Comorbidities - select Answers: Any tumor (including all that apply lymphoma or leukemia) Diabetes (uncontrolled or controlled) # of Emergency department Answers: 1-2 visits in the last 6 months Score: 8 Date Signed: 02/11/2018 03:40 PM Electronically Signed By:Ekaterina Baker RN
== END 2018-02-11 17:25 | disposition home or self-care (01) | DRG 375 ==
LOC: F1N 20:20
PROVIDERS: ADMIT Internal Medicine; ATTEND Internal Medicine
DX: C78.6 Secondary malignant neoplasm of retroperitoneum and peritoneum (principal); E87.2 Acidosis; E83.51 Hypocalcemia; K59.09 Other constipation; G47.33 Obstructive sleep apnea (adult) (pediatric); E03.9 Hypothyroidism, unspecified; E55.9 Vitamin D deficiency, unspecified; Z85.43 Personal history of malignant neoplasm of ovary; Z85.850 Personal history of malignant neoplasm of thyroid; Z92.3 Personal history of irradiation; F17.210 Nicotine dependence, cigarettes, uncomplicated
CPT/HCPCS: 82435-PO; 82565-PO; 82652-90; 82947-PO; 84132-PO; 84295-PO; 84520-PO; 85014-PO; 96374; J0610; J1170; J1650; J1885; J2405; J2550; Q9967

== ENCOUNTER 2018-02-26 15:00 | Inpatient (IN) | payer OTHER ==
[2018-02-26] MEDS ORDERED: ACETAMINOPHEN 325 MG TAB PO PRN (16:07)
[2018-02-26 17:28] LABS: PLATELET COUNT 426 10^3/uL (150-400)
[2018-02-26] MEDS: HYDROmorphONE/DILAUDID 1 MG/ML INJ IVP PRN ×2 (17:31→21:24)
[2018-02-26] MEDS: ONDANSETRON 4 MG/2 ML VIAL IVP PRN (17:31)
[2018-02-26] MEDS: NS W/ 20 KCl/L 1,000 ML IV SCH (17:34)
[2018-02-26] MEDS ORDERED: MAGNESIUM SULF 2 GM/WATER 50 ML IV ONE (18:44)
--- NOTE | 2018-02-26 18:57 | PDGENHP ---
History and Physical - Chief Complaint Nausea, vomiting, diarrhea - History of Present Illness 62 y/o female, with history of ovarian cancer, presents with similar symptoms she experienced 2 weeks ago - nausea, vomiting and abdominal distention with RUQ pain. She also endorses diarrhea this time around. At the time of her admission 2 weeks prior, she did have a SBO that was managed nonoperatively. Prior to her discharge, it was noted RLQ adhesions and pelvic masses, interval progression of cancer with enlargement of pelvic, mesenteric, and retroperitoneal masses. She continued a soft diet but couldn't keep much down. No fevers or chills. Last diarrhea was yesterday, no blood in stool. + abdominal distention and tenderness. Minimal emesis - appears bile in color. Last chemotherapy was 10 years ago. Past Medical/Surgical History 1. Metastatic Ovarian Cancer 2. Malignant small bowel obstruction 2. Thyroid cancer, s/p thyroidectomy 3. SHAHIDA 4. Vitamin D deficiency 5. Hx of tobacco use Vital Signs 114/71 86 HR 22 Respirations 97% RA 36.3 c History Information - Allergies/Home Medication List Allergies/Adverse Reactions: No Known Allergies Allergy (Verified 06/28/17 06:15) Home Medications: Ergocalciferol [Vitamin D2 (*)] 50,000 unit PO FR 06/28/17 [Last Taken 02/26/18] FLUoxetine [Prozac 20 MG (*)] 60 mg PO DAILY 06/28/17 [Last Taken 02/19/18] Hydrocodone/Acetaminophen [[place] 5/325 (*)] 1 tab PO PRN PRN 06/28/17 [Last Taken 02/03/18] Levothyroxine [Synthroid 137 mcg (*)] 137 mcg PO DAILY06 06/28/17 [Last Taken ] I have personally reviewed and updated: family history, medical history, social history, surgical history Past Medical History: See HPI List - Surgical History Additional surgical history: See HPI list - Social History Smoking Status: Light smoker Alcohol Use: Rarely Drug Use: None Review of Systems Review of Systems: ROS: 10pt was reviewed & negative except for what was stated in HPI & below Constitutional: Reports: malaise EENMT: Reports: no symptoms Respiratory: Reports: no symptoms Gastrointestinal: Reports: vomitting, abdominal pain, abdominal distention, diarrhea, nausea Genitourinary: Reports: no symptoms Muscolosketal: Reports: no symptoms Skin: Reports: no symptoms Neurological: Reports: no symptoms Hematologic/Lymphatic: Reports: no symptoms Immunologic/Allergy: Reports: no symptoms Physical Exam Physical Exam: Lab data and imaging reviewed Abdomen XR: Moderate partial SBO, soft tissue mass suspected within lower pelvis displacing bowel superiorly WBC: 12.70 AST/ALT: 253/167 Magnesium: 1.4 Temp Pulse Resp BP Pulse Ox 36.3 C 86 22 H 114/71 97 02/26/18 15:32 02/26/18 15:32 02/26/18 15:32 02/26/18 15:32 02/26/18 15:32 Constitutional: obese, uncomfortable (Sitting hunched over in bed) Ears, Nose, Mouth, Throat: moist mucous membranes, hearing normal, ears appear normal, no oral mucosal ulcers Cardiovascular: regular rate and rhythym, no murmur, rub, or gallop, No edema Peripheral Pulses: 2+: dorsalis-pedis (R) (Radial 2+), dorsalis-pedis (L) ( Radial 2+) Respiratory: reduced air movement (Diminished bases) Gastrointestinal: tenderness, guarding, distension, other (Hypoactive active bowel sounds) Genitourinary: no bladder fullness, no bladder tenderness Skin: warm, normal color, no rashes or abrasions, no fluctuance, no induration, No mottled Musculoskeletal: full muscle strength, no muscle tenderness, normal joint ROM, no joint effusions Neurologic: AAOx3, sensation intact bilaterally, CN II-XII Intact Psychiatric: interacting appropriately, not anxious, not encephalopathic, thought process linear Lymph, Heme, Immunologic: no cervical LAD, no supraclavicular LAD Lab Data & Imaging Review 02/26/18 17:20 02/26/18 17:20 WBC 12.70 10^3/uL (3.80-9.50) H 02/26/18 17:20 RBC 4.79 10^6/uL (4.18-5.33) 02/26/18 17:20 Hgb 12.5 g/dL (12.6-16.3) L 02/26/18 17:20 Hct 38.4 % (38.0-47.0) 02/26/18 17:20 MCV 80.2 fL (81.5-99.8) L 02/26/18 17:20 MCH 26.1 pg (27.9-34.1) L 02/26/18 17:20 MCHC 32.6 g/dL (32.4-36.7) 02/26/18 17:20 RDW 15.4 % (11.5-15.2) H 02/26/18 17:20 Plt Count 426 10^3/uL (150-400) H 02/26/18 17:20 MPV 8.9 fL (8.7-11.7) 02/26/18 17:20 Neut % (Auto) 78.6 % (39.3-74.2) H 02/26/18 17:20 Lymph % (Auto) 12.8 % (15.0-45.0) L 02/26/18 17:20 Gaines % (Auto) 6.9 % (4.5-13.0) 02/26/18 17:20 Eos % (Auto) 0.4 % (0.6-7.6) L 02/26/18 17:20 Baso % (Auto) 0.8 % (0.3-1.7) 02/26/18 17:20 Nucleat RBC Rel Count 0.0 % (0.0-0.2) 02/26/18 17:20 Absolute Neuts (auto) 9.99 10^3/uL (1.70-6.50) H 02/26/18 17:20 Absolute Lymphs (auto) 1.63 10^3/uL (1.00-3.00) 02/26/18 17:20 Absolute Monos (auto) 0.87 10^3/uL (0.30-0.80) H 02/26/18 17:20 Absolute Eos (auto) 0.05 10^3/uL (0.03-0.40) 02/26/18 17:20 Absolute Basos (auto) 0.10 10^3/uL (0.02-0.10) 02/26/18 17:20 Absolute Nucleated RBC 0.00 10^3/uL (0-0.01) 02/26/18 17:20 Immature Gran % 0.5 % (0.0-1.1) 02/26/18 17:20 Immature Gran # 0.06 10^3/uL (0.00-0.10) 02/26/18 17:20 Sodium 141 mEq/L (135-145) 02/26/18 17:20 Potassium 3.9 mEq/L (3.3-5.0) 02/26/18 17:20 Chloride 103 mEq/L (97-110) 02/26/18 17:20 Carbon Dioxide 25 mEq/l (22-31) 02/26/18 17:20 Anion Gap 13 mEq/L (6-14) 02/26/18 17:20 BUN 16 mg/dL (7-23) 02/26/18 17:20 Creatinine 0.7 mg/dL (0.6-1.0) 02/26/18 17:20 Estimated GFR > 60 02/26/18 17:20 Glucose 95 mg/dL (70-100) 02/26/18 17:20 Calcium 6.7 mg/dL (8.5-10.4) L 02/26/18 17:20 Magnesium 1.4 mg/dL (1.6-2.3) L 02/26/18 17:20 Total Bilirubin 0.7 mg/dL (0.1-1.4) 02/26/18 17:20 AST 253 IU/L (14-46) H 02/26/18 17:20 ALT 167 IU/L (9-52) H 02/26/18 17:20 Alkaline Phosphatase 97 IU/L (38-126) 02/26/18 17:20 Total Protein 6.1 g/dL (6.3-8.2) L 02/26/18 17:20 Albumin 3.2 g/dL (3.5-5.0) L 02/26/18 17:20 Assessment & Plan Plan: A/P Small bowel obstruction: likely secondary to ovarian cancer. Will manage her with NPO, IV fluids, NG tube, antiemetics and pain medicines. For now, keep NG tube on suction. Oncology consulted and aware. Dr. Kristian Amaya with f/u with patient tomorrow. May need surgical intervention considering the new findings of adhesions with the last visit here. Ovarian Cancer: progression of the disease. Oncology consulted. Palliative consult. Tobacco use: recommend cessation Elevated AST/ALT: Abdomen US for transaminitis Diet: NPO VTE ppx: Lovenox/SCDs Code: Full Dispo: Admit to inpatient
[2018-02-26] MEDS: PROMETHAZINE HCL 25 MG/ML INJ IVP PRN (21:23)
--- NOTE | 2018-02-27 00:41 | GHP ---
DATE OF ADMISSION: 02/26/2018 CHIEF COMPLAINT: Abdominal pain, nausea, and vomiting. HISTORY OF PRESENT ILLNESS: The patient is a pleasant 62-year-old female with a past medical history of metastatic ovarian cancer diagnosed over 10 years ago, previously treated with chemotherapy and r adiation treatment, who had a followup visit with Dr. Langley, her oncologist, earlier today. At the visit she reported generalized abdominal pain and distention associated with nausea and vomiting. S he stated that she had diarrhea daily over the past week, but over the past 24 hours has not passed a ny stool. No flatus noted either. The patient was admitted directly from Dr. Langley's office. The patient was recently in the hospital for small-bowel obstruction. Upon arrival to the hospital, she had an abdominal x-ray, which showed moderate partial small-bowel obstruction as well as a soft tiss ue mass suspected within the lower pelvis displacing the bowel superiorly. She had a CT scan on 01/13, which showed again the small-bowel obstruction with a transition point in the anterior right lower quadrant where adhesions and pelvic masses were noted. An NG tube was placed, and the patient was started on IV fluids. At the time of my evaluation, the patient was asking for a popsicle. For past medical history, past surgical history, medications, allergies, family history, social histo ry, and review of systems, please refer to history and physical dictated by Luz Marina Moraes. PHYSICAL EXAM: VITAL SIGNS: Temperature 36.8, blood pressure is 136/55, heart rate 89, respiratory rate of 20, saturating 96% on 2 L nasal cannula. GENERAL: Patient sitting upright in bed, mildly dis tressed from abdominal discomfort, but awake, alert, and conversant. HEENT: Extraocular movements a ppear intact. No scleral icterus. NECK: No thyroid enlargement noted. CHEST: Clear to auscultati on with normal respiratory effort. No wheezing. HEART: Regular rate and rhythm. No murmurs. ABDO MEN: Mildly distended, but soft. Mild tenderness with deep palpation. Bowel sounds diminished. : No Rivera catheter in place. EXTREMITIES: No significant pitting edema. NEUROLOGIC: Cranial ner ves 2-12 grossly intact with 5/5 strength in extremities. LABS: White blood cell count 12, hemoglobin 12, platelets 426. Sodium 141, potassium 3.9, chloride 103, bicarb 25, BUN 16, creatinine 0.7, glucose of 95, magnesium 1.4, AST 253, ALT 167, bilirubin tot al 0.7, alkaline phosphatase 97. ASSESSMENT/PLAN: 1. Small-bowel obstruction, secondary to ovarian cancer with noted pelvic masses and adhesions on re cent CT imaging. Continue with supportive intravenous fluids. Monitor electrolytes. Continue nasog astric tube placement. 2. Transaminitis. She has had a rather rapid rise in her liver enzymes. Right upper quadrant ultra sound ordered for further investigation. Repeat liver enzymes tomorrow morning. 3. Acute hypoxic respiratory failure, likely atelectasis secondary to abdominal distention. Continu e supplemental oxygen and wean as able. 4. Hypomagnesemia. Replace. Recheck with morning labs. 5. Obstructive sleep apnea. Uncertain if patient is currently compliant with CPAP therapy. 6. Hypothyroidism. Resume levothyroxine when able. 7. Depression. Patient is on fluoxetine as an outpatient. 8. Deep venous thrombosis prophylaxis. Lovenox. DISPOSITION: I recommend admission to the hospital on inpatient status as I anticipate 3-5 days in the hospital for her small-bowel obstruction. /[id number]/MODL
[2018-02-27] MEDS: HYDROmorphONE/DILAUDID 1 MG/ML INJ IVP PRN ×3 (02:07→16:03)
[2018-02-27] MEDS: ONDANSETRON 4 MG/2 ML VIAL IVP PRN ×3 (02:08→16:05)
[2018-02-27 05:35] LABS: PLATELET COUNT 343 10^3/uL (150-400)
[2018-02-27] MEDS ORDERED: CALCIUM GLUCONATE 50 ML IV ONE (05:51)
[2018-02-27] MEDS: NS W/ 20 KCl/L 1,000 ML IV SCH ×2 (06:06→18:20)
--- NOTE | 2018-02-27 07:14 | PDMN ---
Medical Necessity Medical necessity: Pt meets inpt criteria per MD ordr and MCG M-210, Intestinal Obstruction. 62 y/o w/hx of metastatic ovarian cancer admitted w/small bowel obstruction (confirmed on x-ray) secondary to ovarian cancer w/noted pelvic masses and adhesions on recent CT, acute hypoxic resp failure, hypomagnesemia. NGT placed, IVF, replace magnesium, suppl O2. Anticipate>2MN for management of above.
[2018-02-27] MEDS: ENOXAPARIN 40 MG/0.4 ML SYR SC SCH (08:16)
--- NOTE | 2018-02-27 10:26 | ASMTCMCOM ---
CM Note CM Note Notes: Pt has been admitted with SBO 2/2 her dx of ovarian CA. She is currently receiving conservative treatment with IVF and has an NGT. She has a hx of depression. She lives in [place] with her . CM will follow for any d/c needs. Date Signed: 02/27/2018 10:25 AM Electronically Signed By:GEOVANNY Martinez
[2018-02-27] MEDS ORDERED: PROTOCOL CALCIUM 1 DOSE IV PRN (10:59)
--- NOTE | 2018-02-27 11:00 | HOSPPROG ---
Hospitalist Progress Note Assessment/Plan: # SBO - d/t adhesions vs ovarian cancer - AXR with some decompression - cont NGT, anti-emetics, pain control - Dr Mata to consult # hypocalcemia - severe, need to check iCa - cont repletion protocol - does have hx medullary thyroid ca, but calcitonin has always been low recently - will not recheck at this point # ovarian cancer s/p chemo and debulking, recurred # transaminitis - quite elevated; US with steatosis, but this is not consistent with recent rise; no mets see on US - will check INR, hepatitis panel, apap level # hypothyroid - holding synthroid, restart when taking PO # depr - hold prozac for now Subjective: abd less tender today; -flatus -BM Objective: Vital Signs Temp Pulse Resp BP Pulse Ox 36.8 C 81 14 136/55 H 95 02/27/18 07:56 02/27/18 07:56 02/27/18 07:56 02/27/18 07:56 02/27/18 07:56 Laboratory Results 02/27/18 04:28 02/27/18 04:28 02/26/18 02/27/18 02/28/18 05:59 05:59 05:59 Intake Total 873 Output Total 300 250 Balance 573 -250 chart reviewed discussed with Dr Mata CT reviewed - Physical Exam Constitutional: obese Cardiovascular: regular rate and rhythym, no murmur, rub, or gallop Respiratory: no respiratory distress, no rales or rhonchi, clear to auscultation Gastrointestinal: other (high pitched BS; soft, multiple masses appreciated) ICD10 Worksheet Patient Problems: Problems Problem Status Onset Small bowel obstruction Acute Ovarian cancer Acute
[2018-02-27] MEDS: PROMETHAZINE HCL 25 MG/ML INJ IVP PRN ×2 (11:51→18:13)
[2018-02-27 15:02] LABS: INR 2.19 (0.83-1.16); PROTIME(PATIENT) 24.4 SEC (12.0-15.0)
[2018-02-27] MEDS ORDERED: PHYTONADIONE 10 MG in NS 50 ML IV ONE (15:46)
--- NOTE | 2018-02-27 18:57 | SOAPPROG ---
SOAP Progress Note Assessment/Plan: Assessment: 62 female with recurrent sbo 2/2 ovarian cancer recurrence comfortable, afebrile heent nonicteric chest cor rr abd distended, mildly tender, decreased bs, no hernias recurrent sbo/ risks and options fully discussed Plan:may need surgery despite etiolgy because of recurrence 02/27/18 18:54 Objective: Vital Signs Temp Pulse Resp BP Pulse Ox 36.4 C 83 14 109/62 97 02/27/18 15:32 02/27/18 15:32 02/27/18 15:32 02/27/18 15:32 02/27/18 15:32 Laboratory Results 02/27/18 04:28 02/27/18 13:08 02/26/18 02/27/18 02/28/18 05:59 05:59 05:59 Intake Total 873 1130 Output Total 300 1405 Balance 573 -275 PT 24.4 SEC (12.0-15.0) H 02/27/18 13:08 INR 2.19 (0.83-1.16) H 02/27/18 13:08 ICD10 Worksheet Patient Problems: Problems Problem Status Onset Ovarian cancer Acute Small bowel obstruction Acute
[2018-02-27] MEDS: LORazepam 2 MG/ML INJ IVP PRN (20:27)
[2018-02-28] MEDS: HYDROmorphONE/DILAUDID 2 MG/ML INJ IVP PRN ×3 (04:08→22:11)
[2018-02-28] MEDS: PROMETHAZINE HCL 25 MG/ML INJ IVP PRN ×3 (04:08→22:11)
[2018-02-28 05:25] LABS: PLATELET COUNT 308 10^3/uL (150-400)
[2018-02-28] MEDS ORDERED: CALCIUM GLUCONATE 2 GM in NS 50 ML IV ONE (07:04)
[2018-02-28] MEDS: ENOXAPARIN 40 MG/0.4 ML SYR SC SCH (07:45)
[2018-02-28 07:46] LABS: INR 2.23 (0.83-1.16); PROTIME(PATIENT) 24.7 SEC (12.0-15.0)
[2018-02-28] MEDS: ONDANSETRON 4 MG/2 ML VIAL IVP PRN ×2 (09:44→16:13)
--- NOTE | 2018-02-28 10:19 | HOSPPROG ---
Hospitalist Progress Note Assessment/Plan: 62F with ovarian cancer, thyroid cancer recently admitted for WBO treated conservatively. Readmitted for SBO and hepatitis. # SBO, recurrent - d/t adhesions vs ovarian cancer - cont NGT, anti-emetics, pain control - Dr Mata consulting - may need surgery # hypocalcemia - severe - resistant to repletion - check calcitonin (hx medullary thyroid ca), PTH, vit D # hepatitis - unclear etiology; US with steatosis; INR elevated, resistant to vit K - autoimmune serologies pending, US with dopplers today to r/o thrombus - also consider MRI to r/u occult mets, but none seen on US and CT - will consider GI consult # ovarian cancer s/p chemo and debulking, recurred # hypothyroid - holding synthroid, restart when taking PO # depr - hold prozac for now Subjective: no flatus; no BM; still with abd pain Objective: Vital Signs Temp Pulse Resp BP Pulse Ox 36.9 C 78 14 120/68 94 02/28/18 07:37 02/28/18 07:37 02/28/18 07:37 02/28/18 07:37 02/28/18 07:37 Laboratory Results 02/28/18 04:36 02/28/18 04:36 02/27/18 02/28/18 03/01/18 05:59 05:59 05:59 Intake Total 873 2355 Output Total 300 3555 Balance 573 -1200 PT 24.7 SEC (12.0-15.0) H 02/28/18 07:17 INR 2.23 (0.83-1.16) H 02/28/18 07:17 high risk - Physical Exam Constitutional: chronically ill appearing, uncomfortable Cardiovascular: regular rate and rhythym, no murmur, rub, or gallop, systolic murmur Respiratory: no respiratory distress, no rales or rhonchi, clear to auscultation Gastrointestinal: tenderness (diffusely; + bowel sounds), distension, No guarding, No rebound ICD10 Worksheet Patient Problems: Problems Problem Status Onset Small bowel obstruction Acute Ovarian cancer Acute
--- NOTE | 2018-02-28 11:25 | SOAPPROG ---
SOAP Progress Note Assessment/Plan: Assessment: 62 y/o F with recurrent SBO S: Resting at the moment. Has not passed gas or BM. Pain controlled. O: Sleepy Afebrile RRR No increased WOB Abdomen: soft, but distended, absent bowel sounds NG to suction Plan: Continue conservative management. SBFT tomorrow. 02/28/18 11:32 Objective: Vital Signs Temp Pulse Resp BP Pulse Ox 36.9 C 78 14 120/68 94 02/28/18 07:37 02/28/18 07:37 02/28/18 07:37 02/28/18 07:37 02/28/18 07:37 Laboratory Results 02/28/18 04:36 02/28/18 04:36 02/27/18 02/28/18 03/01/18 05:59 05:59 05:59 Intake Total 873 2355 Output Total 300 3555 Balance 573 -1200 PT 24.7 SEC (12.0-15.0) H 02/28/18 07:17 INR 2.23 (0.83-1.16) H 02/28/18 07:17 ICD10 Worksheet Patient Problems: Problems Problem Status Onset Ovarian cancer Acute Small bowel obstruction Acute
--- NOTE | 2018-02-28 11:41 | SOAPPROG ---
[facility] Progress Note Assessment/Plan: Assessment: 1. Granulosa cell tumor 2. Recurrent small bowel obstruction 3. Elevated transaminases of unclear etiology Patient well-known to our service with recurrent granulosa cell tumor admitted with symptoms of a bowel obstruction, she was in a few weeks ago with similar symptoms which resolved spontaneously. Surgical consultation has been obtained and a small bowel follow-through is scheduled. Recently noted is a markedly elevated transaminases. Liver ultrasound shows fat in her liver recent imaging shows no obvious evidence of metastatic disease in her liver. She has a coagulopathy. Serologic workup is pending. Plan:Continue to follow GI exam, she may require surgery. Continue to follow transaminases. We will give some vitamin K, if she goes to surgery will probably need fresh frozen plasma preop. 02/28/18 11:38 Subjective: Resting, no flatus Objective: Vital Signs Temp Pulse Resp BP Pulse Ox 98.6 F 76 14 130/74 H 93 02/28/18 11:22 02/28/18 11:22 02/28/18 11:22 02/28/18 11:22 02/28/18 11:22 Laboratory Results 02/28/18 04:36 02/28/18 04:36 02/27/18 02/28/18 03/01/18 05:59 05:59 05:59 Intake Total 873 2355 Output Total 300 3555 Balance 573 -1200 PT 24.7 SEC (12.0-15.0) H 02/28/18 07:17 INR 2.23 (0.83-1.16) H 02/28/18 07:17 Physical Exam - Physical Exam General Appearance: mild distress Respiratory: lungs clear Cardiac/Chest: regular rate, rhythm Abdomen: distended, No normal bowel sounds ICD10 Worksheet Patient Problems: Problems Problem Status Onset Ovarian cancer Acute Small bowel obstruction Acute
[2018-02-28] MEDS: NS W/ 20 KCl/L 1,000 ML IV SCH (14:56)
--- NOTE | 2018-02-28 17:27 | SOAPPROG ---
SOAP Progress Note Assessment/Plan: Assessment: 62 female with recurrent sbo 2/2 ovarian cancer recurrence comfortable, afebrile heent nonicteric chest cor rr abd distended, mildly tender, decreased bs, no hernias recurrent sbo/ risks and options fully discussed Plan:may need surgery despite etiolgy because of recurrence 02/27/18 18:54 02/28/18 17:25 SEEN BY MY NURSE PRACTITIONER LEVI LARA, PLEASE REFER TO HER NOTE STILL DISTENDED WITH OCCASIONAL PAIN AND NO FLATUS OR BOWEL MOVEMENTS/MINIMAL NG OUTPUT AND MILD NAUSEA WILL NEED EXPLORATORY LAP IN THE A.M. FOR RESOLUTION OF SMALL-BOWEL OBSTRUCTION WILL NEED A GASTROGRAFIN ENEMA 1ST TO RULE OUT COLONIC OBSTRUCTION FROM THE LARGE LEFT LOWER QUADRANT MASS RISKS AND OPTIONS BEEN FULLY DISCUSSED AND SHE WISHED TO PROCEED WITH SURGERY EVEN IF COLOSTOMY NECESSARY A Objective: Vital Signs Temp Pulse Resp BP Pulse Ox 36.9 C 81 14 124/76 H 94 02/28/18 15:18 02/28/18 15:18 02/28/18 15:18 02/28/18 15:18 02/28/18 15:18 Laboratory Results 02/28/18 04:36 02/28/18 04:36 02/27/18 02/28/18 03/01/18 05:59 05:59 05:59 Intake Total 873 2355 364 Output Total 300 3555 975 Balance 573 -1200 -611 PT 24.7 SEC (12.0-15.0) H 02/28/18 07:17 INR 2.23 (0.83-1.16) H 02/28/18 07:17 ICD10 Worksheet Patient Problems: Problems Problem Status Onset Ovarian cancer Acute Small bowel obstruction Acute
--- NOTE | 2018-02-28 18:53 | GCON ---
DATE OF CONSULTATION: 02/27/2018 HISTORY OF PRESENT ILLNESS: The patient is a 62-year-old female who was admitted for a bowel obstruc tion. She had recently been in the hospital for over 2 weeks with a bowel obstruction, which slowly resolved. She has known recurrent ovarian cancer. Recent CT scan shows a large left lower quadrant mass as well as a smaller right lower quadrant mass, which appears to be the cause of the small bowel obstruction. The left lower quadrant mass does not appear to be obstructing the sigmoid, although t he sigmoid colon is draped over this mass. She is not currently on chemotherapy. I was consulted fo r evaluation of her small bowel obstruction, which appears to be persistent and not resolving. She i s reasonably comfortable at this time with an NG tube on suction. PAST MEDICAL HISTORY: Includes multiple abdominal surgeries for ovarian cancer including original hy sterectomy and bilateral salpingo-oophorectomies. Despite that she had development of ovarian cancer . She has never had a bowel resection to her knowledge. She also has a history of thyroid cancer wi th thyroidectomy, obstructive sleep apnea, and vitamin D deficiency. ALLERGIES: None. PRESENT MEDICATIONS: Listed in the chart but include Prozac, [place], Synthroid, and vitamin D. SOCIAL HISTORY: She is an ex-smoker. REVIEW OF SYSTEMS: Negative on a full 10-point review except as related to the HPI. PHYSICAL EXAMINATION: GENERAL: An alert, cooperative 62-year-old female in no acute distress. HEAD AND NECK: No icterus or adenopathy. PERRLA. NECK: Supple without adenopathy or thyromegaly or br uits. CHEST: Clear and symmetric. CARDIAC: A regular rhythm. ABDOMEN: Soft, somewhat protuberan t, minimally tender with a large midline incision. There are no obvious hernias. EXTREMITIES: Mitchell gn. Full range of motion, full pulses. NEUROLOGIC: Appears to be physiologic and symmetric. PSYCH : She is alert, oriented, and cooperative. IMPRESSION: Recurrent bowel obstruction, most likely secondary to recurrent cancer in the pelvis. RECOMMENDATIONS: Continue NG suction, but if not improved dramatically and rapidly, consider laparot jacob for intestinal bypass or resection. She may need a Gastrografin enema to rule out a partial colo n obstruction. /[id number]/MODL
[2018-03-01] MEDS: NS W/ 20 KCl/L 1,000 ML IV SCH ×2 (00:16→10:21)
[2018-03-01 04:08] LABS: HEPATITIS A ANTIBODY IGM (BCH) NEGATIVE (NEGATIVE); HEPATITIS B CORE AB IGM NEGATIVE (NEGATIVE); HEPATITIS B SURFACE ANTIGEN NEGATIVE (NEGATIVE); HEPATITIS C ANTIBODY TOTAL NEGATIVE (NEGATIVE)
[2018-03-01] MEDS: PROMETHAZINE HCL 25 MG/ML INJ IVP PRN (04:26)
[2018-03-01] MEDS: HYDROmorphONE/DILAUDID 2 MG/ML INJ IVP PRN ×2 (04:26→08:31)
[2018-03-01 04:34] LABS: PLATELET COUNT 297 10^3/uL (150-400)
[2018-03-01 04:40] LABS: INR 1.87 (0.83-1.16); PROTIME(PATIENT) 21.6 SEC (12.0-15.0)
[2018-03-01] MEDS ORDERED: CALCIUM GLUCONATE 2 GM in NS 50 ML IV ONE (07:47)
[2018-03-01] MEDS: ONDANSETRON 4 MG/2 ML VIAL IVP PRN ×2 (08:29→13:35)
[2018-03-01] MEDS: ENOXAPARIN 40 MG/0.4 ML SYR SC SCH (09:31)
--- NOTE | 2018-03-01 09:49 | SOAPPROG ---
SOAP Progress Note Assessment/Plan: Assessment: 62 y/o F with recurrent SBO S: No change. Has not passed gas or had BM. O: Sleepy Afebrile RRR No increased WOB Abdomen: soft, but distended, absent bowel sounds NG to suction Plan: Barium enema. Surgery later this afternoon- Ex lap with lysis of adhesions, possible small bowel resection. Risks and options fully discussed and pt wishes to proceed. 03/01/18 09:47 Objective: Vital Signs Temp Pulse Resp BP Pulse Ox 36.8 C 85 16 162/76 H 93 03/01/18 08:18 03/01/18 08:18 03/01/18 08:18 03/01/18 08:18 03/01/18 08:18 Laboratory Results 03/01/18 04:12 03/01/18 04:12 02/28/18 03/01/18 03/02/18 05:59 05:59 05:59 Intake Total 2355 1697 Output Total 3555 1775 Balance -1200 -78 PT 21.6 SEC (12.0-15.0) H 03/01/18 04:12 INR 1.87 (0.83-1.16) H 03/01/18 04:12 ICD10 Worksheet Patient Problems: Problems Problem Status Onset Ovarian cancer Acute Small bowel obstruction Acute
--- NOTE | 2018-03-01 11:02 | HOSPPROG ---
Hospitalist Progress Note Assessment/Plan: * Recurrent SBO - due to adhesions vs. ovarian cancer -to OR today * Ovarian cancer s/p chemo/debulking * Hypocalcemia -replete per protocol * h/o medullary thyroid ca s/p thyroidectomy * Fatty liver with increased LFT -serologies pending -no evidence for liver mets * Coagulopathy - elevated INR resistant to Vit K -will likely need FFP prior to surgery * Hypothyroid -restart synthroid when taking PO * Obesity BMI 45 with SHAHIDA Subjective: No new complaints. Objective: Vital Signs Temp Pulse Resp BP Pulse Ox 36.8 C 85 16 162/76 H 93 03/01/18 08:18 03/01/18 08:18 03/01/18 08:18 03/01/18 08:18 03/01/18 08:18 Laboratory Results 03/01/18 04:12 03/01/18 04:12 02/28/18 03/01/18 03/02/18 05:59 05:59 05:59 Intake Total 2355 1697 Output Total 3555 1775 Balance -1200 -78 PT 21.6 SEC (12.0-15.0) H 03/01/18 04:12 INR 1.87 (0.83-1.16) H 03/01/18 04:12 abd xray viewed, my personal interpretation is - persistent SBO abd us - fatty liver - Physical Exam Constitutional: no apparent distress, appears nourished, not in pain, other ( NGT in place) Cardiovascular: regular rate and rhythym, no murmur, rub, or gallop Respiratory: no respiratory distress, no rales or rhonchi, clear to auscultation Gastrointestinal: distension, No tenderness, No ascites, No guarding, No rebound Skin: no rashes or abrasions, no fluctuance, no induration Neurologic: AAOx3, sensation intact bilaterally Psychiatric: interacting appropriately, not anxious, not encephalopathic, thought process linear ICD10 Worksheet Patient Problems: Problems Problem Status Onset Ovarian cancer Acute Small bowel obstruction Acute
--- NOTE | 2018-03-01 12:59 | ASMTCMCOM ---
CM Note CM Note Notes: Plan of care reviewed in rounds. Patient with Ovarian cancer presenting with SBO to undergo surgery with Dr. Mata today. Likely to benefit from palliative care consult when stable after surgery. Needs TBD at this time. CM to follow. Plan: TBD Date Signed: 03/01/2018 12:58 PM Electronically Signed By:Ekaterina Baker RN
[2018-03-01] MEDS ORDERED: BUPIVACAINE 0.5% 30 ML SDV ONE (13:27)
[2018-03-01] MEDS ORDERED: LR 1,000 ML IV ONE (14:00)
[2018-03-01] MEDS ORDERED: cefOXitin SODIUM 2 GM in NS 100 ML IV ONE (14:00)
[2018-03-01] MEDS ORDERED: fentaNYL 100 MCG/2 ML INJ ONE (14:30)
[2018-03-01] MEDS ORDERED: PROPOFOL 200 MG/20 ML VIAL ONE ×2 (14:31→14:34)
--- NOTE | 2018-03-01 14:33 | PDANEPAE ---
ANE Past Medical History - Cardiovascular History Hx Hypertension: No Hx Arrhythmias: No Hx Chest Pain: No Hx Coronary Artery / Peripheral Vascular Disease: No Hx CHF / Valvular Disease: No Hx Palpitations: No - Pulmonary History Hx COPD: No Hx Asthma/Reactive Airway Disease: No Hx Recent Upper Respiratory Infection: No Hx Oxygen in Use at Home: No Hx Sleep Apnea: Yes Sleep Apnea Screening Result - Last Documented: Positive - Endocrine History Hx Diabetes: No Hypothyroid: No Hyperthyroid: No Obesity: moderate, severe - Renal History Hx Renal Disorders: No - Liver History Hepatic History Comment: Elevated liver enzymes - Cancer History Cancer History Comment: metastatic ovarian cancer - Other Health History Other Health History: Elevated INR due to liver dysfunction - Chronic Pain History Chronic Pain: No ANE Review of Systems Review of Systems: - Exercise capacity Exercise capacity: >=4 METS ANE Patient History - Allergies Allergies/Adverse Reactions: No Known Allergies Allergy (Verified 06/28/17 06:15) - Home Medications Home medications: home medication list seen and reviewed Home Medications: Ergocalciferol [Vitamin D2 (*)] 50,000 unit PO FR 06/28/17 [Last Taken 02/26/18] FLUoxetine [Prozac 20 MG (*)] 60 mg PO DAILY 06/28/17 [Last Taken 02/19/18] Hydrocodone/Acetaminophen [Robson 5/325 (*)] 1 tab PO PRN PRN 06/28/17 [Last Taken 02/03/18] Levothyroxine [Synthroid 137 mcg (*)] 137 mcg PO DAILY06 06/28/17 [Last Taken ] - NPO status NPO Status: no food or drink >8 hours NPO Since - Liquids (Date): 02/28/18 NPO Since - Liquids (Time): 23:59 NPO Since - Solids (Date): 02/28/18 NPO Since - Solids (Time): 23:59 - Anes Hx Anes Hx: no prior problems - Smoking Hx Smoking Status: Light smoker - Alcohol Use Alcohol Use: Rarely ANE Labs/Vital Signs - Labs Result Diagrams: 03/01/18 04:12 03/01/18 04:12 - Vital Signs Vital Signs: reviewed preoperatively; see RN documention for details Blood Pressure: 121/51 Heart Rate: 80 Respiratory Rate: 18 O2 Sat (%): 95 Height: 167 cm Weight: 125.8 kg ANE Physical Exam - Airway Mallampati Score: Class 2 Mouth exam: normal dental/mouth exam - Pulmonary Pulmonary: no respiratory distress, reduced air movement - Cardiovascular Cardiovascular: regular rate and rhythym - ASA Status ASA Status: IV
[2018-03-01] MEDS ORDERED: PHENYLEPHRINE HCL 100 MCG/ML SYR ONE (14:43)
[2018-03-01] MEDS ORDERED: SUCCINYLCHOLINE CHLORIDE 200 MG/10 ML SYR IVP ONE (14:43)
[2018-03-01] MEDS ORDERED: KETAMINE 200 MG/20 ML VIAL ONE (15:26)
--- NOTE | 2018-03-01 15:27 | SOAPPROG ---
SOAP Progress Note Assessment/Plan: E&M granulosa cell tumor * Granulosa cell tumor: slowly progressing * Recurrent small bowel obstruction: Recurrent and doesn't appear to be clearing. Appreciate surgery's input. * Elevated transaminases of unclear etiology: Are a little better. Can try to get liver biopsy at time of surgery. * Elevated INR: possibly related to above; recommend 2 units FFP prior to surgery Subjective: She unfortunately is not doing any better and has spoke with Dr. Mata regarding probable surgical exploration. She has no acute complaints. Objective: Vital Signs Temp Pulse Resp BP Pulse Ox 36.7 C 80 18 121/51 H 95 03/01/18 14:21 03/01/18 14:33 03/01/18 14:33 03/01/18 14:33 03/01/18 14:33 Laboratory Results 03/01/18 04:12 03/01/18 04:12 02/28/18 03/01/18 03/02/18 05:59 05:59 05:59 Intake Total 2355 1697 Output Total 3555 1775 950 Balance -1200 -78 -950 PT 21.6 SEC (12.0-15.0) H 03/01/18 04:12 INR 1.87 (0.83-1.16) H 03/01/18 04:12 Laboratory Tests 02/27/18 02/28/18 03/01/18 13:08 04:36 04:12 INR Total Bilirubin 0.9 1.4 AST 1275 H 806 H ALT 728 H 701 H Alkaline Phosphatase 146 H 130 H Hepatitis A IgM Ab NEGATIVE Hep Bs Antigen NEGATIVE Hep B Core IgM Ab NEGATIVE Hepatitis C Antibody NEGATIVE 03/01/18 04:12 INR 1.87 H Total Bilirubin AST ALT Alkaline Phosphatase Hepatitis A IgM Ab Hep Bs Antigen Hep B Core IgM Ab Hepatitis C Antibody Physical Exam - Physical Exam General Appearance: no apparent distress Respiratory: lungs clear Cardiac/Chest: regular rate, rhythm Abdomen: non-tender, No normal bowel sounds ICD10 Worksheet Patient Problems: Problems Problem Status Onset Ovarian cancer Acute Small bowel obstruction Acute
[2018-03-01] MEDS ORDERED: HYDROmorphONE/DILAUDID 2 MG/ML INJ ONE (16:21)
[2018-03-01] MEDS ORDERED: DEXAMETHASONE 4 MG/ML VIAL ONE (16:22)
[2018-03-01] MEDS ORDERED: LIDOCAINE 0.5% 50 ML SDV ONE ×2 (16:34→16:41)
[2018-03-01] MEDS ORDERED: LABETALOL HCL 5 MG/ML 20 ML MDV ONE (17:08)
[2018-03-01] MEDS ORDERED: LIDOCAINE 1% 300 MG/30 ML SDV ONE ×2 (17:45→19:48)
[2018-03-01] MEDS ORDERED: ROCURONIUM 50 MG/5 ML VIAL ONE ×2 (17:55→22:59)
[2018-03-01] MEDS ORDERED: cefOXitin SODIUM 1 GM in NS 50 ML IV ONE (19:00)
[2018-03-01] MEDS ORDERED: ALBUMIN 25% 50 ML SOLN IV ONE (19:54)
[2018-03-01] MEDS ORDERED: ALBUMIN 5% 250 ML BOTTLE IV ONE ×2 (19:55→21:25)
[2018-03-01] MEDS ORDERED: VASOPRESSIN 20 UNIT/ML VIAL ONE (20:04)
[2018-03-01] MEDS ORDERED: CALCIUM CHLORIDE 1 GM/10 ML INJ ONE (20:34)
[2018-03-01 21:44] LABS: INR 1.91 (0.83-1.16)
[2018-03-01] MEDS ORDERED: ePHEDrine SULFATE 25 MG/5 ML SYR ONE (21:58)
[2018-03-01] MEDS ORDERED: PHENYLEPHRINE 10 MG/ML SDV ONE (21:59)
[2018-03-01] MEDS ORDERED: ERTAPENEM 1 GM in NS 100 ML IV ONE (23:00)
[2018-03-01] MEDS ORDERED: epHEDrine SULFATE 10 MG/ML SYR IVP PRN (23:15)
[2018-03-01] MEDS ORDERED: NALOXONE HCL 0.4 MG/ML INJ IVP PRN (23:15)
[2018-03-01] MEDS ORDERED: LR 500 ML IV PRN (23:15)
[2018-03-01] MEDS ORDERED: PHENYLEPHRINE HCL 100 MCG/ML SYR IVP PRN (23:15)
--- NOTE | 2018-03-01 23:29 | POSTOPPROG ---
Post Op Note Date of Operation: 03/01/18 Surgeon: Sebastian Mata Lead Application Architect: Mable العلي Anesthesiologist: Argenis Morales Anesthesia: GET(General Endotracheal) Pre-op Diagnosis: SBO, ovarian CA Post-op Diagnosis: same, many adhesions, friable bowel Procedure: see below. Findings: see below. Inf/Abcess present in the surg proc area at time of surgery?: Yes Depth: Organ Space EBL: 2500cc Complications: none Specimen(s): 1. Procedure: laparotomy, r hemicolectomy, tumor debulking with partial colectomy, small bowel resection, multiple enterotomy repairs, extensive adhesiolysis, liver biopsy, abdominal wall biopsy 2. Findings: frozen abdomen, friable bowel, multiple tumor deposits, mostly in pelvis but widespread and also within bowel. fatty liver with no definite masses. 3. Specimens, many to pathology.
[2018-03-02] MEDS: LORazepam 2 MG/ML INJ IVP PRN (00:15)
[2018-03-02] MEDS: HYDROmorphONE/DILAUDID 1 MG/ML INJ IVP PRN (00:15)
[2018-03-02] MEDS: FLUCONAZOLE/NaCl 100 ML IV SCH ×2 (00:16→23:30)
[2018-03-02] MEDS: PROPOFOL/EMULSION 100 ML IV SCH ×3 (00:17→20:06)
[2018-03-02] MEDS: NS W/ 20 KCl/L 1,000 ML IV SCH (00:20)
[2018-03-02] MEDS ORDERED: SODIUM BICARBONATE 50 MEQ/50 ML SYR ONE (00:58)
[2018-03-02] MEDS ORDERED: PROTOCOL POTASSIUM 1 DOSE MISC PRN (01:01)
[2018-03-02] MEDS ORDERED: PROTOCOL MAGNESIUM 1 DOSE IV PRN (01:01)
[2018-03-02] MEDS ORDERED: PROTOCOL K PHOSPHATE 1 DOSE IV PRN (01:01)
[2018-03-02] MEDS ORDERED: PROTOCOL CALCIUM 1 DOSE IV PRN (01:01)
[2018-03-02] MEDS ORDERED: CALCIUM GLUCONATE 50 ML IV ONE ×2 (01:06→05:44)
[2018-03-02 01:09] LABS: INR 2.12 (0.83-1.16); PROTIME(PATIENT) 23.8 SEC (12.0-15.0)
[2018-03-02] MEDS ORDERED: MAGNESIUM SULF 2 GM/WATER 50 ML IV ONE (01:23)
[2018-03-02] MEDS: fentaNYL 100 MCG/2 ML INJ IVP PRN (01:45)
[2018-03-02] MEDS: fentaNYL/NACL 100 ML IV SCH ×2 (01:49→16:42)
[2018-03-02 05:48] LABS: PLATELET COUNT 200 10^3/uL (150-400)
[2018-03-02 06:02] LABS: INR 2.19 (0.83-1.16); PROTIME(PATIENT) 24.4 SEC (12.0-15.0)
[2018-03-02] MEDS ORDERED: MAGNESIUM SULF 1 GM/DEXTROSE 100 ML IV ONE (06:03)
--- NOTE | 2018-03-02 08:44 | POSTANESTH ---
Post Anesthetic Evaluation Cardiovascular Status: Other, See Comment (Pt with ongoing anemia receiving pRBC. BP stable overnight, though on the low side.) Respiratory Status: Other, See Comment (Pt intubated and sedated in ICU.) Level of Consciousness/Mental Status: Unconscious Notes: Pt in guarded condition in the ICU. Lots of fluid shifts with prolonged ex lap surgery yesterday on top of pre-existing anemia of chronic disease.
--- NOTE | 2018-03-02 09:45 | SOAPPROG ---
SOAP Progress Note Assessment/Plan: Assessment/Plan: 62 Y F metastatic ovarian CA c bowel obstruction, s/p challenging laparotomy c enterocolostomy, partial colon resection with tumor debulking, friable bowel, liver biopsy, extensive adhesiolysis c friable bowel and multiple enterotomy repairs. POD#1. Seen and examined with Dr. Mata. On vent. Afebrile. Vital signs stable. Off pressors. Uop adequate but still appears concentrated. Continue colon. Hct 23--1 u pRBC's followed by lasix. Chemical VTE ppx on hold--INR high anyways , likely hepatic cause. Hypocalemia. Replacing Ca++. Continue empiric IV antibiotic and antifungal. Continue wound vac to suction. S: sedated on vent. O: sedated on vent abd with vac examined by Dr. Mata. 03/02/18 09:46 Objective: Vital Signs Temp Pulse Resp BP Pulse Ox 37.3 C 97 18 112/63 95 03/02/18 08:00 03/02/18 08:00 03/02/18 08:00 03/02/18 08:00 03/02/18 08:00 Laboratory Results 03/02/18 05:25 03/02/18 05:25 03/01/18 03/02/18 03/03/18 05:59 05:59 05:59 Intake Total 1697 81710 Output Total 4093 1430 Balance -78 7940 PT 24.4 SEC (12.0-15.0) H 03/02/18 05:25 INR 2.19 (0.83-1.16) H 03/02/18 05:25 ICD10 Worksheet Patient Problems: Problems Problem Status Onset Ovarian cancer Acute Small bowel obstruction Acute
[2018-03-02] MEDS ORDERED: FUROSEMIDE 20 MG/2 ML VIAL IVP ONE (10:00)
[2018-03-02] MEDS ORDERED: FUROSEMIDE 40 MG/4 ML VIAL IVP ONE (10:23)
[2018-03-02] MEDS ORDERED: ALTEPLASE 2 MG VIAL IVP PRN (10:23)
[2018-03-02] MEDS ORDERED: D10W 1,000 ML IV PRN (11:08)
[2018-03-02 11:54] LABS: PLATELET COUNT 193 10^3/uL (150-400)
[2018-03-02 12:07] LABS: INR 2.17 (0.83-1.16); PROTIME(PATIENT) 24.2 SEC (12.0-15.0)
--- NOTE | 2018-03-02 12:45 | SOAPPROG ---
SOAP Progress Note Assessment/Plan: E&M granulosa cell tumor * Granulosa cell tumor: slowly progressing last 10 years without therapy; anticipate it will continue to have same course going forward * Recurrent small bowel obstruction: Recurrent and doesn't appear to be clearing. Per surgery: challenging laparotomy with enterocolostomy, partial colon resection with tumor debulking, friable bowel, liver biopsy, extensive adhesiolysis with friable bowel and multiple enterotomy repairs. POD#1. * Elevated transaminases of unclear etiology: AST/ALT are better. Bili is up. Path pending * Elevated INR: possibly related to above; recommend FFP as clinically indicated Subjective: Intubated and sedated. with patient. Objective: Vital Signs Temp Pulse Resp BP Pulse Ox 37.3 C 105 H 14 112/63 89 L 03/02/18 08:00 03/02/18 12:26 03/02/18 11:47 03/02/18 08:00 03/02/18 12:26 Laboratory Results 03/02/18 11:35 03/02/18 11:35 03/01/18 03/02/18 03/03/18 05:59 05:59 05:59 Intake Total 1697 46433 Output Total 1775 4180 Balance -78 7940 PT 24.2 SEC (12.0-15.0) H 03/02/18 11:35 INR 2.17 (0.83-1.16) H 03/02/18 11:35 Physical Exam - Physical Exam General Appearance: unresponsive Respiratory: normal breath sounds Cardiac/Chest: regular rate, rhythm Abdomen: No normal bowel sounds ICD10 Worksheet Patient Problems: Problems Problem Status Onset Ovarian cancer Acute Small bowel obstruction Acute
--- NOTE | 2018-03-02 15:49 | HOSPPROG ---
Hospitalist Progress Note Assessment/Plan: * Small bowel obstruction s/p tumor debulking, bowel resection -difficult surgery, friable tissue, extensive disease -open abd wound - has wound vac -empiric Invanz + Diflucan per surgery * Ovarian cancer -slow growing, not on chemo as outpatient * Acute respiratory failure -remains intubated post surgery * Volume overload - got 12L fluid with surgery -diurese as tolerated * Hypocalcemia -replete per protocol * h/o medullary thyroid ca s/p thyroidectomy * Fatty liver with increased LFT -serologies pending -no evidence for liver mets -s/p liver biopsy * Coagulopathy - elevated INR resistant to Vit K -FFP as needed * Acute blood loss anemia -transfuse today * Hypothyroid -restart synthroid when taking PO * Obesity BMI 45 with SHAHIDA Subjective: Remain intubated, open abdomen with wound vac Objective: Vital Signs Temp Pulse Resp BP Pulse Ox 37.3 C 99 15 110/58 L 97 03/02/18 14:00 03/02/18 14:00 03/02/18 14:00 03/02/18 14:00 03/02/18 14:00 Laboratory Results 03/02/18 11:35 03/02/18 11:35 03/01/18 03/02/18 03/03/18 05:59 05:59 05:59 Intake Total 1697 79835 648 Output Total 1775 4180 675 Balance -78 7940 -27 PT 24.2 SEC (12.0-15.0) H 03/02/18 11:35 INR 2.17 (0.83-1.16) H 03/02/18 11:35 CXR viewed, my personal interpretation is - mild volume overload tele - NSR Sedation - IV fentanyl and IV propofol gtt - Physical Exam Constitutional: no apparent distress, not in pain, obese, other (intubated and sedated) Cardiovascular: regular rate and rhythym, no murmur, rub, or gallop Respiratory: no respiratory distress, no rales or rhonchi, clear to auscultation Gastrointestinal: normoactive bowel sounds, soft, non-tender abdomen, no palpable masses, other (open wound with wound vac) Skin: no rashes or abrasions, no fluctuance, no induration Neurologic: No AAOx3 Psychiatric: encephalopathic, No interacting appropriately ICD10 Worksheet Patient Problems: Problems Problem Status Onset Small bowel obstruction Acute Ovarian cancer Acute
[2018-03-02] MEDS ORDERED: D50W 25 GM/50 ML SYR IVP PRN (16:59)
[2018-03-02] MEDS ORDERED: NS 1,000 ML IV SCH (17:00)
[2018-03-02 17:24] LABS: INR 1.84 (0.83-1.16); PROTIME(PATIENT) 21.3 SEC (12.0-15.0)
[2018-03-02] MEDS: INSULIN REGULAR HUMAN 100 UNIT/ML UNIT SC SCH ×2 (17:51→23:00)
[2018-03-02] MEDS: NYSTATIN POWDER 15 GM BTL TP SCH (20:06)
[2018-03-02] MEDS: TPN W/ FAMOTIDINE 1 EA BAG IV SCH (20:06)
[2018-03-02] MEDS ORDERED: ALBUMIN 5% 250 ML IV ONE (20:30)
--- NOTE | 2018-03-02 22:03 | GCON ---
PULMONARY CRITICAL CARE CONSULTATION DATE OF CONSULTATION: 03/02/2018 REASON FOR CONSULTATION: Postoperative ventilatory insufficiency in a patient with metastatic cancer , status post prolonged abdominal surgery for small bowel obstruction. HISTORY OF PRESENT ILLNESS: The patient is an unfortunate 62-year-old with metastatic ovarian cancer throughout the abdomen. She was originally diagnosed 10 years ago and treated with chemotherapy and radiation therapy. She presented to Dr. Langley on the day of admission, 02/26, with abdominal pain , distention, nausea and vomiting. She was found to be doing poorly and sent to the emergency depart ment for admission. She had an abdominal CT scan, which showed a small bowel obstruction and abdomin al masses. She was admitted and stabilized. She was taken to the operating room by Dr. Mata yes. Surgery was prolonged. She had multiple adhesions and her entire bowel and abdomen was involve d by metastatic cancer. A right hemicolectomy and tumor debulking was done. She had resection of so me of her small bowel. Multiple adhesions were taken down. Surgery took over 7 hours, and 2500 cc o f blood was lost. She received 2 units postoperatively. She was returned to the intensive care unit with an open abdomen, on the ventilator. Overnight, she has been stable. She remains sedated. She is making urine. PAST MEDICAL HISTORY: Primarily remarkable for issues related to her metastatic ovarian cancer. She is hypothyroid, on replacement. She takes Prozac and vitamin D and p.r.n. [place]. ALLERGIES: Drug allergies none known. SOCIAL HISTORY: . Alcohol and tobacco are negative. FAMILY HISTORY: Noncontributory/unobtainable. REVIEW OF SYSTEMS: A 10-point review of systems negative. PHYSICAL EXAMINATION: GENERAL: Reveals an ill-appearing woman on the ventilator. She appears pale. VITAL SIGNS: Blood pressure is approximately 120/60, heart rate 100, with sinus rhythm on the yung tor. Respiratory rate is 18, set on the ventilator. She is on 60% FiO2 with saturations 95%. She i s afebrile. HEENT: Remarkable for a nasogastric tube to drainage and oral endotracheal tube. Pupil s are equal. There is no obvious jugular venous distention. CHEST: Clear anteriorly. Breath sound s are diminished at the bases. HEART: Tachycardic. There are no obvious gallops. No significant m urmurs. ABDOMEN: Dressed postoperatively. It is quiet. A Rivera catheter is in place. There is go od urine output; however, input during surgery totaled 12 L. Input is greater than output by approxi mately 8 L. EXTREMITIES: Remarkable for 1+ pitting edema/anasarca. NEUROLOGIC: Grossly nonfocal. She moves extremities weakly with decreased sedation and when aroused. She is sedated. IMAGING: Chest x-ray shows bibasilar infiltrates/atelectasis/fluid, left greater than right. Lines and tubes are in appropriate position. LABORATORY DATA: White blood cell count 12,600, hematocrit 26.8, platelets 193. INR is 2.17, PTT 46 . Arterial blood gas on the ventilator shows a pH of 7.34, pCO2 of 40, and pO2 of 103 on 40% FiO2, e arlier today, 550 on a rate of 16. Sodium is 143, potassium 4.6, CO2 of 21, BUN 13 with creatinine 0 .8. Glucose is 170. Bilirubin 2.6, AST 106, ALT 181. Albumin is 2.1. Hepatitis serology is negati ve. ASSESSMENT: 1. Metastatic ovarian cancer. 2. Small bowel obstruction with multiple adhesions and tumor metastasis throughout the bowel. Statu s post extensive bowel surgery, as outlined above. She returns to the intensive care unit with an op en abdomen and will need to return to the operating room at some point. She is at high risk for chelo tonitis/intra-abdominal abscess. She has been treated with ertapenem. 3. Respiratory failure, secondary to extensive abdominal surgery as above. She is not tolerating CP AP wean. She is on 60% FiO2. She is volume overloaded. Atelectasis is present. There is no eviden ce of pneumonia. She is sedated, per ventilatory protocols. Hopefully, CPAP weaning can take place over the next day or 2, and she can be successfully extubated. 4. Acute blood loss anemia. She has received 3 units of packed cells and fresh frozen plasma. Curr ent hematocrit is 26. This is being followed. 5. Nutrition: She has not eaten for several weeks in any meaningful way. TPN will be initiated. 6. Metabolic: Glucose is elevated. Sliding scale glucose will be ordered. Glucose can also be put in the TPN. 7. Elevated liver function studies. Fatty liver was found in the operating room and liver biopsy wa s obtained. 8. Advance directives. The patient is full cor. There is no history of underlying lung or heart di sease. However, with her advanced tumor and multiple bowel issues as outlined above, her prognosis m ay be quite poor. A palliative care consultation will be obtained. She is being followed by Oncolog mathew. PLAN AND RECOMMENDATIONS: The patient will be kept in the intensive care unit and supported. Please see the plans per individual problems as above. Laboratory, chest x-ray, and blood gases will be fo llowed. Over 1 hour of critical care time was spent directly with the patient regarding ventilatory managemen t, fluid management, TPN, etc. Issues were discussed with the patient's , Surgery, Nursing, R espiratory Therapy, and the ICU multidisciplinary team. /[id number]/MODL
[2018-03-02] MEDS: ERTAPENEM 1 GM in NS 100 ML IV SCH (22:57)
[2018-03-03] MEDS: fentaNYL/NACL 100 ML IV SCH ×2 (01:26→11:35)
[2018-03-03 04:34] LABS: INR 1.84 (0.83-1.16); PROTIME(PATIENT) 21.3 SEC (12.0-15.0)
[2018-03-03 04:36] LABS: PLATELET COUNT 137 10^3/uL (150-400)
[2018-03-03] MEDS: INSULIN REGULAR HUMAN 100 UNIT/ML UNIT SC SCH ×3 (05:44→17:32)
[2018-03-03] MEDS ORDERED: FUROSEMIDE 20 MG/2 ML VIAL IVP SCH (08:45)
[2018-03-03] MEDS: NYSTATIN POWDER 15 GM BTL TP SCH ×2 (09:15→21:39)
[2018-03-03] MEDS ORDERED: FUROSEMIDE 40 MG/4 ML VIAL IVP ONE (10:22)
--- NOTE | 2018-03-03 10:57 | SOAPPROG ---
SOAP Progress Note Assessment/Plan: Assessment: 62 Y F metastatic ovarian CA c bowel obstruction, s/p challenging laparotomy c enterocolostomy, partial colon resection with tumor debulking, friable bowel, liver biopsy, extensive adhesiolysis c friable bowel and multiple enterotomy repairs. POD#2 Continue iv abx and antifungal Continue colon Wound vac change today S: Vented. Opens eyes to name. O: Sedated Afebrile VSS, off pressors Hct 22.8 today Abdomen: soft, wound vac to suction : uop adequate 03/03/18 10:54 Objective: Vital Signs Temp Pulse Resp BP Pulse Ox 37.8 C 102 H 13 132/67 H 89 L 03/03/18 08:00 03/03/18 10:00 03/03/18 10:00 03/03/18 10:00 03/03/18 10:00 Laboratory Results 03/03/18 04:15 03/03/18 04:15 03/02/18 03/03/18 03/04/18 05:59 05:59 05:59 Intake Total 33273 4358 Output Total 4180 1925 490 Balance 7940 2433 -490 PT 21.3 SEC (12.0-15.0) H 03/03/18 04:15 INR 1.84 (0.83-1.16) H 03/03/18 04:15 ICD10 Worksheet Patient Problems: Problems Problem Status Onset Ovarian cancer Acute Small bowel obstruction Acute
--- NOTE | 2018-03-03 11:08 | PDINTPN ---
Technical Instructor Progress Note Assessment/Plan: Assessment: 62-year-old with metastatic ovarian cancer admitted with recurrent small-bowel obstruction secondary to abdominal/pelvic metastases admitted 02/26. Taken to the operating room 03/01 for lysis of adhesions, tumor debulking, and bowel resections. Metastatic ovarian cancer. Initial diagnosis approximately 10 years ago. Debulked previously. Slow growing, with recurrence 5 years ago. Opted for no chemotherapy on recurrence as slow growing and no good chemo options. Small bowel obstruction. Laparotomy 03/01. Surgery was over 7 hr with lysis of adhesions, tumor debulking, and large and small bowel resections. Returned to the ICU with a open abdomen and wound VAC. Acute respiratory failure. Has required ventilatory support since OR. On 60% FiO2. Hypoxemia in part secondary to volume overload/congestive heart failure. Not tolerating CPAP weans thus far. Volume overload. Weight up significantly. Input up by about 10 L. Chest x-ray consistent with volume overload/congestive heart failure. Getting Lasix. Acute blood-loss anemia. Secondary to EBL of 2500 in OR. Has received 3 units of packed red cells along with fresh frozen plasma. Hematocrit 22.8 today. Nutrition: TPN. Metabolic: No issues identified currently. DVT prophylaxis: SCDs. Will start prophylactic Lovenox. GI prophylaxis: Famotidine in TPN. Prognosis: May be quite poor regarding surviving this hospitalization with extensive abdominal surgery in the setting of widespread intra-abdominal metastases. Patient remains full code at this point. Palliative consultation requested. The patient's will need to make initial decisions for her. Plan: Continue ventilatory support and aggressive supportive care. CPAP weans as tolerated. Increase Lasix diuresis. Continue antibiotics. Continue TPN. Continue to decrease IV fluids. Pain control as needed. Sedation per ventilator. Follow hemoglobin and hematocrit, laboratory, chest x-ray and blood gas. May need more blood. 50 min of critical care time spent directly with the patient regarding ventilator, fluid, and medical management. Discussed with surgery, nursing, respiratory, and the ICU multi disciplinary team. Addendum: Family conference with the patient's , 2 daughters, and the tar pot worker and social welfare administrator. We discussed the current situation regarding her critical illness, major abdominal surgery, metastatic cancer, respiratory failure, volume overload, etc. We discussed the possibility that this will be a at length the and possibly complicated process, that the GI tract may have ongoing problems and that she may not survive all the current events if complications arise. Issues were discussed for approximately 30 min. Cor status was also discussed. Subjective: Sedated, on ventilator Objective: Vital Signs Temp Pulse Resp BP Pulse Ox 37.8 C 102 H 13 132/67 H 89 L 03/03/18 08:00 03/03/18 10:00 03/03/18 10:00 03/03/18 10:00 03/03/18 10:00 Laboratory Results 03/03/18 04:15 03/03/18 04:15 03/02/18 03/03/18 03/04/18 05:59 05:59 05:59 Intake Total 70200 4358 Output Total 4180 1925 490 Balance 7940 2433 -490 PT 21.3 SEC (12.0-15.0) H 03/03/18 04:15 INR 1.84 (0.83-1.16) H 03/03/18 04:15 Laboratory Tests 03/03/18 03/03/18 03/03/18 04:15 04:15 04:15 PT 21.3 H INR 1.84 H APTT 40.1 H pCO2 38 pO2 92 H ABG pH 7.39 Calcium 7.0 L Ionized Calcium 1.09 L Phosphorus 3.4 Magnesium 2.0 Total Bilirubin 1.6 H Conjugated Bilirubin 1.3 H AST 60 H ALT 127 H Albumin 2.2 L CXR: Increased bilateral infiltrates consistent with volume overload/ congestive heart failure. Left basilar opacification present: Possibly infiltrate/consolidation versus atelectasis/effusion. Lines and tubes in good position. Physical Exam - Physical Exam General Appearance: no apparent distress, other (Arouses weakly with stimulation ), No alert EENT: PERRL/EOMI, ET tube, other (NG tube to suction) Neck: normal inspection (No obvious jugular venous distension) Respiratory: lungs clear (Anteriorly), decreased breath sounds (At lateral bases ), rales (Few) Cardiac/Chest: regular rate, rhythm, other (Distant heart tones.), No gallop Abdomen: other (Quiet postoperatively. Wound VAC in place over open abdominal incision) Pelvic Exam: other (Rivera catheter in place. Good urine output. Input greater than output 2 L last 24 hr) Skin: warm/dry, pallor Extremities: pedal edema, swelling Neuro/Psych: no motor/sensory deficits (Difficult to assess, moves all extremities weakly with stimulation.), cognition abnormalities (Can't assess) ICD10 Worksheet Patient Problems: Problems Problem Status Onset Small bowel obstruction Acute Ovarian cancer Acute
--- NOTE | 2018-03-03 11:35 | ASMTCMCOM ---
CM Note CM Note Notes: Patient remains intubated and sedated, so PT is on hold for today. Patient has wound vac. Continue IV ABX and antifungal. Palliative care to meet with patient and her when appropriate. D/C plan TBD. CM will follow. Date Signed: 03/03/2018 11:35 AM Electronically Signed By:Sivan Cardozo LCSW
[2018-03-03] MEDS: PROPOFOL/EMULSION 100 ML IV SCH ×2 (11:37→17:48)
[2018-03-03] MEDS ORDERED: CALCIUM GLUCONATE 50 ML IV ONE (12:00)
--- NOTE | 2018-03-03 14:09 | SOAPPROG ---
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 POD#2. * Elevated transaminases of unclear etiology: AST/ALT and bili are better. Path pending * Elevated INR: probably related to above; recommend FFP as clinically indicated * Prognosis: d/w family; has slow growing but incurable cancer; current situation is worrisome; agree with current program as long as she starts showing signs of improvement, even if slow Subjective: Sedated and intubated. Daughter and with her. Reports that patient has opened eyes earlier. Objective: Vital Signs Temp Pulse Resp BP Pulse Ox 37.5 C 98 12 116/64 92 03/03/18 12:00 03/03/18 14:00 03/03/18 14:00 03/03/18 14:00 03/03/18 14:00 Laboratory Results 03/03/18 04:15 03/03/18 04:15 03/02/18 03/03/18 03/04/18 05:59 05:59 05:59 Intake Total 99254 4358 Output Total 4180 1925 1425 Balance 7940 2433 -1425 PT 21.3 SEC (12.0-15.0) H 03/03/18 04:15 INR 1.84 (0.83-1.16) H 03/03/18 04:15 Physical Exam - Physical Exam Respiratory: lungs clear Cardiac/Chest: tachycardia Abdomen: No normal bowel sounds ICD10 Worksheet Patient Problems: Problems Problem Status Onset Ovarian cancer Acute Small bowel obstruction Acute
[2018-03-03] MEDS ORDERED: PROTOCOL POTASSIUM 1 DOSE MISC PRN (14:37)
--- NOTE | 2018-03-03 16:46 | HOSPPROG ---
Hospitalist Progress Note Assessment/Plan: * Small bowel obstruction s/p tumor debulking, bowel resection -difficult surgery, friable tissue -open abd wound - wound vac * Peritonitis -per surgery - extensive peritoneal soiling during OR -continue IV Invanz and IV diflucan -high risk for abscess/leak - consult ID to follow * Ovarian cancer -slow growing, chemo was not recommended by onc due to indolent nature * Acute respiratory failure -remains intubated post surgery * Volume overload - got 12L fluid with surgery -diurese as tolerated * Hypocalcemia -replete per protocol * h/o medullary thyroid ca s/p thyroidectomy * Fatty liver with increased LFT -serologies pending -no evidence for liver mets -s/p liver biopsy * Coagulopathy - elevated INR resistant to Vit K -FFP as needed * Acute blood loss anemia -transfuse as needed * Hypothyroid -restart synthroid when taking PO * Obesity BMI 45 with SHAHIDA Subjective: Not weaning from vent, remain sedated Objective: Vital Signs Temp Pulse Resp BP Pulse Ox 38.1 C 100 20 125/65 H 94 03/03/18 16:00 03/03/18 16:14 03/03/18 16:14 03/03/18 16:00 03/03/18 16:14 Laboratory Results 03/03/18 04:15 03/03/18 04:15 03/02/18 03/03/18 03/04/18 05:59 05:59 05:59 Intake [place] 30010 4358 Output Total 4180 1925 2060 Balance 7940 2433 -2060 PT 21.3 SEC (12.0-15.0) H 03/03/18 04:15 INR 1.84 (0.83-1.16) H 03/03/18 04:15 d/w Dr Mata and Dr. wayne - very difficult surgical case CXR viewed, my personal interpretation is - CHF - Physical Exam Constitutional: no apparent distress, appears nourished, not in pain, obese, other (intubated and sedated) Cardiovascular: regular rate and rhythym, no murmur, rub, or gallop, edema Respiratory: no respiratory distress, no rales or rhonchi, clear to auscultation Gastrointestinal: normoactive bowel sounds, soft, non-tender abdomen, no palpable masses Skin: no rashes or abrasions, no fluctuance, no induration Neurologic: No AAOx3 Psychiatric: encephalopathic, No interacting appropriately ICD10 Worksheet Patient Problems: Problems Problem Status Onset Small bowel obstruction Acute Ovarian cancer Acute
--- NOTE | 2018-03-03 17:01 | SOAPPROG ---
ADEN Progress Note Assessment/Plan: Assessment: 62 female with recurrent sbo 2/2 ovarian cancer recurrence comfortable, afebrile heent nonicteric chest cor rr abd distended, mildly tender, decreased bs, no hernias recurrent sbo/ risks and options fully discussed Plan:may need surgery despite etiolgy because of recurrence 02/27/18 18:54 02/28/18 17:25 SEEN BY MY NURSE PRACTITIONER LEVI LARA, PLEASE REFER TO HER NOTE STILL DISTENDED WITH OCCASIONAL PAIN AND NO FLATUS OR BOWEL MOVEMENTS/MINIMAL NG OUTPUT AND MILD NAUSEA WILL NEED EXPLORATORY LAP IN THE A.M. FOR RESOLUTION OF SMALL-BOWEL OBSTRUCTION WILL NEED A GASTROGRAFIN ENEMA 1ST TO RULE OUT COLONIC OBSTRUCTION FROM THE LARGE LEFT LOWER QUADRANT MASS RISKS AND OPTIONS BEEN FULLY DISCUSSED AND SHE WISHED TO PROCEED WITH SURGERY EVEN IF COLOSTOMY NECESSARY A 03/03/18 16:58 AMAZINGLY STABLE/WOUND VAC CHANGE TODAY AND WOUND DOING WELL/ABDOMEN SOFT WITH BOWEL SOUNDS/VITAL SIGNS STABLE/STILL ON VENT CHEST X-RAY SHOWS SOME CHF FINDINGS/HEMATOCRIT 23/WBC 9000 MINIMAL NG OUTPUT/MINIMAL WOUND VAC OUTPUT LOW-GRADE TEMP IMPRESSION: STABLE WITH THIS NEW MASSIVE SURGERY/SHE IS AT HIGH RISK FOR ABDOMINAL ABSCESS OR FISTULA OR RECURRENT OBSTRUCTION Objective: Vital Signs Temp Pulse Resp BP Pulse Ox 38.1 C 100 20 125/65 H 94 03/03/18 16:00 03/03/18 16:14 03/03/18 16:14 03/03/18 16:00 03/03/18 16:14 Laboratory Results 03/03/18 04:15 03/03/18 04:15 03/02/18 03/03/18 03/04/18 05:59 05:59 05:59 Intake Total 31767 4358 Output Total 4180 1925 2060 Balance 7940 2433 -2060 PT 21.3 SEC (12.0-15.0) H 03/03/18 04:15 INR 1.84 (0.83-1.16) H 03/03/18 04:15 ICD10 Worksheet Patient Problems: Problems Problem Status Onset Ovarian cancer Acute Small bowel obstruction Acute
[2018-03-03] MEDS ORDERED: POTASSIUM Cl (KCl) 50 ML IV ONE (17:31)
[2018-03-03] MEDS ORDERED: POTASSIUM Cl (KCl) 20 MEQ/50 ML BAG IV ONE (17:38)
[2018-03-03] MEDS: FUROSEMIDE 40 MG/4 ML VIAL IVP SCH (21:39)
[2018-03-03] MEDS: TPN W/ FAMOTIDINE 1 EA BAG IV SCH (22:26)
[2018-03-03] MEDS: FLUCONAZOLE/NaCl 100 ML IV SCH (23:50)
[2018-03-04] MEDS: INSULIN REGULAR HUMAN 100 UNIT/ML UNIT SC SCH ×5 (00:05→23:11)
[2018-03-04] MEDS: ERTAPENEM 1 GM in NS 100 ML IV SCH ×2 (01:37→23:03)
[2018-03-04] MEDS: PROPOFOL/EMULSION 100 ML IV SCH ×2 (01:38→19:54)
[2018-03-04] MEDS: fentaNYL/NACL 100 ML IV SCH ×2 (04:14→23:03)
[2018-03-04 04:33] LABS: PLATELET COUNT 122 10^3/uL (150-400)
[2018-03-04 05:11] LABS: INR 1.51 (0.83-1.16); PROTIME(PATIENT) 18.4 SEC (12.0-15.0)
[2018-03-04] MEDS ORDERED: MAGNESIUM SULF 1 GM/DEXTROSE 100 ML IV ONE (09:00)
[2018-03-04] MEDS ORDERED: POTASSIUM CL 10 MEQ TAB PO ONE (09:17)
[2018-03-04] MEDS: FUROSEMIDE 40 MG/4 ML VIAL IVP SCH ×2 (09:53→19:39)
--- NOTE | 2018-03-04 10:22 | SOAPPROG ---
SOAP Progress Note Assessment/Plan: Assessment: Granulosa cell tumor: She had a long interval with her last debulking which was around 5 years ago. This is a fairly indolent tumor and with debulking she likely will obtain a long duration until necessitating a repeat oncologic intervention. Recurrent small-bowel obstruction: She underwent a complicated laparotomy with enterocolostomy for which she is postoperative day 3. Woundvac is in place. Receiving TPN for nutrition. We will be challenging to extubate her from respiratory standpoint. Elevated PT and PTT: This improved with plasma. I suspect she also has a underlying vitamin K deficiency. Her platelet count is also slowly downtrending under could be a component of DIC as well. Will add on a fibrinogen. Thrombocytopenia: Not on any heparin products. Could be from antibiotics versus just critical illness. No significant schistocytes on peripheral smear. 03/04/18 10:22 Subjective: No acute events overnight. Being weaned off of sedation today. Objective: Vital Signs Temp Pulse Resp BP Pulse Ox 38.1 C 84 22 H 105/50 L 96 03/04/18 04:00 03/04/18 09:02 03/04/18 09:02 03/04/18 08:00 03/04/18 09:02 Laboratory Results 03/04/18 04:20 03/04/18 04:20 03/03/18 03/04/18 03/05/18 05:59 05:59 05:59 Intake Total 4358 2153 Output Total 1925 5055 Balance 2433 -2902 PT 18.4 SEC (12.0-15.0) H 03/04/18 04:20 INR 1.51 (0.83-1.16) H 03/04/18 04:20 General: Opens eyes with tactile stimulus HEENT: Endotracheal tube is in place, pupils are bilaterally constricted Cardiovascular: Regular rate and rhythm Pulmonary: Clear on anterior auscultation Abdomen: Wound VAC is in place, bowel sounds are hypoactive Extremities: Bilateral lower extremity edema 1+ Neuro: Cannot fully assessed due to sedation. ICD10 Worksheet Patient Problems: Problems Problem Status Onset Ovarian cancer Acute Small bowel obstruction Acute
[2018-03-04] MEDS ORDERED: ENOXAPARIN 40 MG/0.4 ML SYR SC SCH (10:30)
--- NOTE | 2018-03-04 10:45 | SOAPPROG ---
SOAP Progress Note Assessment/Plan: Assessment: 62yo F s/p ex-lap, KIMBERLY, resection and repair of multiple enterotomies. - weaning vent, following commands when sedation is held - abdomen is soft, VAC output is serosang. Min to no bowel sounds. NGT to LIWS. TPN - VAC change, wean sedation, wean vent Plan: 03/04/18 10:44 Objective: Vital Signs Temp Pulse Resp BP Pulse Ox 38.1 C 84 22 H 105/50 L 96 03/04/18 04:00 03/04/18 09:02 03/04/18 09:02 03/04/18 08:00 03/04/18 09:02 Laboratory Results 03/04/18 04:20 03/04/18 04:20 03/03/18 03/04/18 03/05/18 05:59 05:59 05:59 Intake Total 4358 2153 Output Total 1925 5055 Balance 2433 -2902 PT 18.4 SEC (12.0-15.0) H 03/04/18 04:20 INR 1.51 (0.83-1.16) H 03/04/18 04:20 ICD10 Worksheet Patient Problems: Problems Problem Status Onset Ovarian cancer Acute Small bowel obstruction Acute
[2018-03-04] MEDS ORDERED: ENOXAPARIN 60 MG/0.6 ML SYR SC SCH (13:00)
--- NOTE | 2018-03-04 13:25 | HOSPPROG ---
Hospitalist Progress Note Assessment/Plan: * Small bowel obstruction s/p tumor debulking, bowel resection -difficult surgery, friable tissue, multiple enterotomies -open abd wound - wound vac * Peritonitis -per surgery - extensive peritoneal soiling during OR -continue IV Invanz and IV diflucan -high risk for abscess/leak - consult ID to follow * Ovarian cancer -slow growing, indolent tumor -went 5 years after last debulking -prognosis good if she can survive this event * Acute respiratory failure -remains intubated post surgery * Volume overload - got 12L fluid with surgery -diurese as tolerated * Hypocalcemia -replete per protocol * h/o medullary thyroid ca s/p thyroidectomy * Fatty liver with increased LFT -serologies pending -no evidence for liver mets -s/p liver biopsy * Coagulopathy - elevated INR resistant to Vit K -FFP as needed * Acute blood loss anemia -transfuse as needed * Hypothyroid -restart synthroid when taking PO * Obesity BMI 45 with SHAHIDA Subjective: no events Objective: Vital Signs Temp Pulse Resp BP Pulse Ox 38.1 C 84 22 H 100/49 L 96 03/04/18 04:00 03/04/18 10:00 03/04/18 10:00 03/04/18 10:00 03/04/18 10:00 Laboratory Results 03/04/18 04:20 03/04/18 04:20 03/03/18 03/04/18 03/05/18 05:59 05:59 05:59 Intake Total 4358 2153 Output Total 1925 5055 900 Balance 2433 -2902 -900 PT 18.4 SEC (12.0-15.0) H 03/04/18 04:20 INR 1.51 (0.83-1.16) H 03/04/18 04:20 CXR viewed, my personal interpretation is - bilateral infiltrates, maybe slight worsening d/w Dr. Jensen regarding prognosis - Physical Exam Constitutional: no apparent distress, obese, other (intubated and sedated, opens eyes and responds), No uncomfortable Cardiovascular: regular rate and rhythym, no murmur, rub, or gallop Respiratory: no respiratory distress, no rales or rhonchi, clear to auscultation Gastrointestinal: normoactive bowel sounds, soft, non-tender abdomen, no palpable masses Skin: no rashes or abrasions, no fluctuance, no induration Neurologic: No AAOx3 Psychiatric: encephalopathic, other (sedated on vent), No interacting appropriately ICD10 Worksheet Patient Problems: Problems Problem Status Onset Small bowel obstruction Acute Ovarian cancer Acute
--- NOTE | 2018-03-04 13:34 | PDINTPN ---
Siderographist Progress Note Assessment/Plan: Assessment: 62-year-old with metastatic ovarian cancer admitted with recurrent small-bowel obstruction secondary to abdominal/pelvic metastases admitted 02/26. Taken to the operating room 03/01 for lysis of adhesions, tumor debulking, and bowel resections. Metastatic ovarian cancer. Initial diagnosis approximately 10 years ago. Debulked previously. Slow growing, with recurrence 5 years ago. No chemotherapy on recurrence as slow growing and no good chemo options. Small bowel obstruction. Laparotomy 03/01. Surgery was over 7 hr with lysis of adhesions, tumor debulking, and large and small bowel resections. Returned to the ICU with close abdominal fascia and wound VAC. Acute respiratory failure. Has required ventilatory support since OR. On 60% FiO2. Hypoxemia in part secondary to volume overload/congestive heart failure. Bilateral pulmonary infiltrates present, left greater than right. I do not suspect pneumonia. She is covered for this by GI antibiotics. Suspect a component of pulmonary capillary leak/possible ARDS as well. Not tolerating CPAP weans at this time. Volume overload. Weight up significantly. Input up by about 10 L postoperatively. Chest x-ray consistent with volume overload/congestive heart failure. Getting Lasix, with good diuresis over the last 24 hr. Acute blood-loss anemia. Secondary to EBL of 2500 in OR. Has received 3 units of packed red cells along with fresh frozen plasma. Hematocrit 25 today. Nutrition: TPN. Metabolic: No issues identified currently. DVT prophylaxis: SCDs. Will start prophylactic Lovenox. GI prophylaxis: Famotidine in TPN. Prognosis: May be quite poor regarding surviving this hospitalization with extensive abdominal surgery in the setting of widespread intra-abdominal metastases. Patient remains full code at this point. Palliative consultation requested. The patient's will need to make initial decisions for her. Plan: Continue ventilatory support and aggressive supportive care. CPAP weaning attempts will be continued. Continue Lasix diuresis, adjust as needed. Continue antibiotics. Continue TPN. Start prophylactic Lovenox today. Check surveillance sputum culture. Pain control as needed. Sedation per ventilator. Continue to follow hemoglobin and hematocrit, laboratory, chest x- ray and blood gas. 50 min of critical care time spent directly with the patient regarding ventilator, fluid, and medical management. Discussed with the patient's , surgery, nursing, respiratory, and the ICU multi disciplinary team. Subjective: On ventilator. Gang Leader today, responsive, without significant pain. Objective: Vital Signs Temp Pulse Resp BP Pulse Ox 38.1 C 84 22 H 100/49 L 96 03/04/18 04:00 03/04/18 10:00 03/04/18 10:00 03/04/18 10:00 03/04/18 10:00 Laboratory Results 03/04/18 04:20 03/04/18 04:20 03/03/18 03/04/18 03/05/18 05:59 05:59 05:59 Intake Total 4358 2153 Output Total 1925 5055 900 Balance 2433 -2902 -900 PT 18.4 SEC (12.0-15.0) H 03/04/18 04:20 INR 1.51 (0.83-1.16) H 03/04/18 04:20 Laboratory Tests 03/04/18 03/04/18 03/04/18 04:20 04:20 04:20 PT 18.4 H INR 1.51 H APTT 41.9 H pCO2 pO2 ABG pH ABG O2 Saturation O2 Concentration % Set Respiration Rate Assist Control Tidal Volume PEEP Calcium 7.0 L Ionized Calcium 1.09 L Phosphorus 4.7 H Magnesium 1.7 Total Bilirubin 1.3 AST 59 H ALT 100 H Albumin 2.3 L 03/04/18 05:30 PT INR APTT pCO2 51 H pO2 94 H ABG pH 7.38 ABG O2 Saturation 97 H O2 Concentration % 70 Set Respiration Rate 22 Assist Control YES Tidal Volume 500 PEEP 5 Calcium Ionized Calcium Phosphorus Magnesium Total Bilirubin AST ALT Albumin CXR: Bilateral infiltrates left greater than right persist. Lines and tubes in good position. Physical Exam - Physical Exam General Appearance: no apparent distress, other (Arouses, responds), No WD/WN ( On ventilator) EENT: PERRL/EOMI, ET tube, other (NG tube to suction) Neck: normal inspection (Large neck, no obvious jugular venous distension) Respiratory: lungs clear (Anteriorly), decreased breath sounds (At bases), rales (Few rales), No rhonchi, No wheezing Cardiac/Chest: regular rate, rhythm, No gallop Abdomen: soft, other (Quiet postoperatively. Wound VAC in place.), No normal bowel sounds, No non-tender Pelvic Exam: other (Rivera catheter in place. Good urine output last 24 hr with Lasix.) Skin: warm/dry, pallor Extremities: pedal edema (Decreased) Neuro/Psych: no motor/sensory deficits, No cognition abnormalities ICD10 Worksheet Patient Problems: Problems Problem Status Onset Small bowel obstruction Acute Ovarian cancer Acute
[2018-03-04] MEDS: NYSTATIN POWDER 15 GM BTL TP SCH ×2 (14:04→20:36)
--- NOTE | 2018-03-04 14:18 | GCON ---
DATE OF CONSULTATION: 03/04/2018 REFERRING PHYSICIAN: Sharon Cuba MD REASON FOR CONSULTATION: Antibiotic recommendations post abdominal surgery. HISTORY OF PRESENT ILLNESS: The patient is a 62-year-old female with a past medical history of metas tatic ovarian cancer who was admitted, on 02/26/2018, with nausea, vomiting, and abdominal distention related to small bowel obstruction. Patient had been admitted in late January with similar symptoms which were treated conservatively. Oral intake was limited due to nausea and vomiting. Prior imagi ng at the time of her hospitalization in late January had revealed a large left lower quadrant mass a nd smaller right lower quadrant masses which were felt to be etiologic for her bowel obstruction. Ul timately, she required laparotomy for treatment of her small bowel obstruction with operative finding s notable for frozen abdomen with friable bowel and multiple tumor deposits requiring extensive adhes iolysis, right hemicolectomy, tumor debulking with partial colectomy, partial small-bowel resection, and multiple enterotomies at time of procedure requiring operative repair. Given the enterotomies, c oncern was raised for possible development of postoperative peritonitis or abscesses. It was felt th ere likely was some contamination at time of surgery but no rachele fecal spillage. Based on the enter otomies and operative findings, the patient was started empirically on ertapenem and fluconazole. Po stoperatively, she has experienced episodic low-grade temperature with peaks of 38.1. She has remain ed intubated and failed a CPAP trial today. She has been noted to be able to follow commands when se dation has been weaned. Given the above findings, I am now asked to assist in her ongoing management . PAST MEDICAL HISTORY: Metastatic ovarian cancer and small bowel obstruction as outlined above, hypot hyroidism. PAST SURGICAL HISTORY: Surgery as outlined above, prior surgery for ovarian cancer, thyroidectomy re lated to thyroid cancer. CURRENT MEDICATIONS: 1. Ertapenem 1 gm IV daily. 2. Lovenox 60 mg subcutaneous b.i.d. 3. Fluconazole 200 mg IV daily. 4. Lasix 40 mg IV q.12 hours. 5. Nystatin powder applied b.i.d. 6. TPN. ALLERGIES: No known drug allergies. SOCIAL HISTORY: Prior tobacco use, rare alcohol intake, no drug use. FAMILY HISTORY: Noncontributory. REVIEW OF SYSTEMS: Outside that noted in the HPI, the remainder of 10-system review cannot be obtain ed or was, otherwise, negative with review of nursing staff unless noted above. PHYSICAL EXAMINATION: VITAL SIGNS: Temperature maximum 38.1, heart rate 84, respiratory rate 22, bl ood pressure 100/49, oxygen saturation 96% on 60% FiO2. GENERAL: Patient is an obese female who is currently mechanically ventilated. HEENT: There is no scleral icterus, conjunctival injection, or c onjunctival petechiae. ET tube is in place. NECK: Supple without palpable lymphadenopathy. A well -healed scar from previous thyroidectomy. CARDIOVASCULAR: Regular rate and rhythm without murmurs, gallops, or rubs. CHEST: Clear to auscultation bilaterally without adventitious sounds. The patien t is mechanically ventilated. ABDOMEN: Soft, nontender with mild distention. Wound VAC is in place centrally without surrounding erythema. Bowel sounds are not present. MUSCULOSKELETAL: 1+ lower e xtremity edema bilaterally. SKIN: No rash is noted. No stigmata of endocarditis. PICC line is pre sent in the right upper extremity without edema or drainage. : Rivera catheter is in place. LABORATORY DATA: White blood cell count 11.0, hematocrit 25.1, platelets 122, neutrophils 82%. Seru m creatinine 1.0, AST 59, ALT 100, bilirubin 1.3, alkaline phosphatase 72, albumin 2.3. Hepatitis se rologies are negative. No culture specimens present. Chest x-ray shows bilateral interstitial edema. IMPRESSION: Small bowel obstruction status post laparotomy with multiple intraoperative enterotomies based on significant adhesions and frozen abdomen: The patient will be at high risk of development of postoperative peritonitis or abscess formation based on preceding enterotomies with potential for peritoneal contamination. The patient is currently receiving ertapenem and fluconazole. We will con tinue this antibiotic therapy with modification dependent on clinical course. Duration of antibiotic therapy will be dependent on clinical course. RECOMMENDATIONS: 1. Agree with ertapenem 1 gm IV daily. 2. Agree with fluconazole 200 mg IV daily. 3. Follow clinical response over time with ultimate duration of antibiotic therapy and antibiotic ch oice being dictated by clinical findings over time. Thank you for this consultation. We will continue to follow the patient with you. /[id number]/MODL
[2018-03-04] MEDS: POTASSIUM Cl (KCl) 50 ML IV SCH ×3 (19:29→20:36)
[2018-03-04] MEDS: TPN W/ FAMOTIDINE 1 EA BAG IV SCH (20:36)
[2018-03-04] MEDS: FLUCONAZOLE/NaCl 100 ML IV SCH (23:02)
[2018-03-05 04:19] LABS: PLATELET COUNT 117 10^3/uL (150-400)
[2018-03-05 04:27] LABS: INR 1.59 (0.83-1.16); PROTIME(PATIENT) 19.1 SEC (12.0-15.0)
[2018-03-05] MEDS ORDERED: PROTOCOL POTASSIUM 1 DOSE MISC PRN (05:26)
[2018-03-05] MEDS ORDERED: PROTOCOL CALCIUM 1 DOSE IV PRN (05:30)
[2018-03-05] MEDS ORDERED: PROTOCOL MAGNESIUM 1 DOSE IV PRN (05:30)
[2018-03-05] MEDS ORDERED: PROTOCOL K PHOSPHATE 1 DOSE IV PRN (05:30)
[2018-03-05] MEDS ORDERED: CALCIUM GLUCONATE 50 ML IV ONE (05:36)
[2018-03-05] MEDS ORDERED: MAGNESIUM SULF 1 GM/DEXTROSE 100 ML IV ONE (05:37)
[2018-03-05] MEDS: INSULIN REGULAR HUMAN 100 UNIT/ML UNIT SC SCH ×4 (06:08→23:38)
[2018-03-05] MEDS: POTASSIUM Cl (KCl) 50 ML IV SCH ×3 (06:34→13:58)
[2018-03-05] MEDS: HYDROmorphONE/DILAUDID 1 MG/ML INJ IVP PRN ×2 (07:36→15:12)
[2018-03-05] MEDS ORDERED: ENOXAPARIN 40 MG/0.4 ML SYR SC SCH (09:00)
--- NOTE | 2018-03-05 09:55 | SOAPPROG ---
SOAP Progress Note Assessment/Plan: Assessment: 62yo F s/p ex-lap, KIMBERLY, resection and repair of multiple enterotomies. - continues to wean on the vent, ABG this AM looks reassuring, wean to extubtae per pulm - abdomen still with no appreciable bowel sounds, VAC was taken down, large subq fat area. fascia is intact, 2 black sponges replaced in cavity. - TPN, hold on any enteral feeds until she has some appreciable bowel sounds Plan: 03/04/18 10:44 03/05/18 09:52 Subjective: stable on vent, following commands Objective: Vital Signs Temp Pulse Resp BP Pulse Ox 37.1 C 91 18 151/69 H 91 L 03/05/18 07:39 03/05/18 07:39 03/05/18 07:39 03/05/18 07:39 03/05/18 07:39 Microbiology 03/04/18 14:05 - Final Sputum, Induced/Suctioned Laboratory Results 03/05/18 04:10 03/05/18 04:10 03/04/18 03/05/18 03/06/18 05:59 05:59 05:59 Intake Total 2153 2913 Output Total 6243 6442 Balance -2902 -262 PT 19.1 SEC (12.0-15.0) H 03/05/18 04:10 INR 1.59 (0.83-1.16) H 03/05/18 04:10 ICD10 Worksheet Patient Problems: Problems Problem Status Onset Ovarian cancer Acute Small bowel obstruction Acute
[2018-03-05] MEDS: FUROSEMIDE 40 MG/4 ML VIAL IVP SCH ×2 (09:58→21:53)
[2018-03-05] MEDS: NYSTATIN POWDER 15 GM BTL TP SCH ×2 (09:58→22:14)
[2018-03-05] MEDS ORDERED: LIDOCAINE 1% 300 MG/30 ML SDV MISC ONE (11:14)
--- NOTE | 2018-03-05 11:25 | SOAPPROG ---
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 This is a fairly indolent tumor and with debulking she likely will obtain a long duration until necessitating a repeat oncologic intervention. Recurrent small-bowel obstruction: She underwent a complicated laparotomy with enterocolostomy for which she is postoperative day 4. Woundvac is in place. Receiving TPN for nutrition. Awaiting recovery of bowel status before giving her enteral nutrition, which might be a challenge. Elevated PT and PTT: Normal fibrinogen. PT elevation could be from underlying vitamin k def, but wouldn't explain the elevated PTT. No active bleeding. Thrombocytopenia: Was started on Lovenox today, so unlikely to be HIT. Likely from critical illness. On ertapenem as well. Fevers: ID following. Remains febrile. Getting a bronch today. Concern for high risk of peritonitis post operatively. On ertapenem and fluconazole. 03/05/18 11:21 Subjective: Doing well this AM. Off sedation but still intubated. Can write out that she wants her family at bedside. Objective: Vital Signs Temp Pulse Resp BP Pulse Ox 37.1 C 92 20 175/82 H 93 03/05/18 07:39 03/05/18 10:00 03/05/18 10:00 03/05/18 10:00 03/05/18 10:00 Microbiology 03/04/18 14:05 - Final Sputum, Induced/Suctioned Laboratory Results 03/05/18 04:10 03/05/18 04:10 03/04/18 03/05/18 03/06/18 05:59 05:59 05:59 Intake Total 2153 2913 Output Total 5055 9015 Balance -2902 -262 PT 19.1 SEC (12.0-15.0) H 03/05/18 04:10 INR 1.59 (0.83-1.16) H 03/05/18 04:10 General: Intuabted, alter, active, understands questions and follows directoins CV: RRR Pulm: Coarse breath sounds on anterior auscultation Abd: Hypoactive bs, abdominal wound with a wound vac in place, nontender Ext: 1+ bl le edema Neuro: Moves all ext, follows commands ICD10 Worksheet Patient Problems: Problems Problem Status Onset Ovarian cancer Acute Small bowel obstruction Acute
[2018-03-05] MEDS ORDERED: LIDOCAINE 1% 300 MG/30 ML SDV ONE (11:26)
[2018-03-05] MEDS ORDERED: MIDAZOLAM 2 MG/2 ML VIAL IVP ONE (11:55)
[2018-03-05] MEDS ORDERED: MIDAZOLAM 2 MG/2 ML VIAL ONE (11:56)
--- NOTE | 2018-03-05 12:25 | PDINTPN ---
Hardboard Press Operator Progress Note Assessment/Plan: Assessment: 62-year-old with metastatic ovarian cancer admitted with recurrent small-bowel obstruction secondary to abdominal/pelvic metastases admitted 02/26. Taken to the operating room 03/01 for lysis of adhesions, tumor debulking, and bowel resections. Metastatic ovarian cancer. Initial diagnosis approximately 10 years ago. Debulked previously. Slow growing, with recurrence 5 years ago. No chemotherapy on recurrence as slow growing and no good chemo options. Small bowel obstruction. Laparotomy 03/01. Surgery was over 7 hr with lysis of adhesions, tumor debulking, and large and small bowel resections. Returned to the ICU with closed abdominal fascia and wound VAC. Acute respiratory failure. Has required ventilatory support since OR. Was hypoxemic, now improving. Hypoxemia in part secondary to volume overload/ congestive heart failure. Bilateral pulmonary infiltrates present, left greater than right. I do not suspect pneumonia. She is covered for this by GI antibiotics. Suspect a component of pulmonary capillary leak/possible ARDS as well. CXR improving. Now tolerating CPAP. Bronchoscopy showed only moderate secretions. Planning on extubation today Volume overload. Weight up significantly. Input up by about 10 L postoperatively. Chest x-ray consistent with volume overload/congestive heart failure. Getting Lasix, with good diuresis over the last 48 hr. Acute blood-loss anemia. Secondary to EBL of 2500 in OR. Has received 3 units of packed red cells along with fresh frozen plasma. Hematocrit 21 today, getting blood. Nutrition: TPN. Metabolic: No issues identified currently. DVT prophylaxis: SCDs. On prophylactic Lovenox. GI prophylaxis: Famotidine in TPN. Prognosis: May be poor regarding surviving this hospitalization with extensive abdominal surgery in the setting of widespread intra-abdominal metastases. This will depend on what happens to/in the abdomen postoperatively. Respiratory failure likely secondary to fluids, improving. Patient remains full code. Plan: Bronchoscopy done today, dictated separately. Will be extubated later today with close pulmonary follow-up: Reintubate if needed. Continue Lasix diuresis, adjust as needed. Continue antibiotics. Continue TPN. Continue prophylactic Lovenox today. Pain control as needed. For blood today. Continue to follow hemoglobin and hematocrit, laboratory, chest x-ray and blood gas. 40 min of critical care time spent directly with the patient regarding issues as above. This does not include bronchoscopy. Discussed with the patient's , surgery, nursing, respiratory, and the ICU multi disciplinary team. Subjective: On ventilator. Somnolent but off sedation. Arousable, responsive Objective: Vital Signs Temp Pulse Resp BP Pulse Ox 36.9 C 90 19 156/70 H 93 03/05/18 12:00 03/05/18 12:00 03/05/18 12:00 03/05/18 12:00 03/05/18 12:00 Microbiology 03/04/18 14:05 - Final Sputum, Induced/Suctioned Laboratory Results 03/05/18 04:10 03/05/18 04:10 03/04/18 03/05/18 03/06/18 05:59 05:59 05:59 Intake Total 2153 2913 Output Total 5055 3175 Balance -2902 -262 PT 19.1 SEC (12.0-15.0) H 03/05/18 04:10 INR 1.59 (0.83-1.16) H 03/05/18 04:10 Laboratory Tests 03/05/18 03/05/18 03/05/18 04:10 04:10 04:10 PT 19.1 H INR 1.59 H APTT 46.8 H Fibrinogen 859 H pCO2 pO2 ABG pH O2 Concentration % CPAP Calcium 7.3 L Ionized Calcium 1.02 L Phosphorus 3.6 Magnesium 1.6 Total Bilirubin 1.4 AST 44 ALT 72 H Albumin 2.0 L 03/05/18 05:45 PT INR APTT Fibrinogen pCO2 49 H pO2 95 H ABG pH 7.44 O2 Concentration % 50 CPAP YES Calcium Ionized Calcium Phosphorus Magnesium Total Bilirubin AST ALT Albumin Physical Exam - Physical Exam General Appearance: no apparent distress, other (On ventilator, arouses, off sedation) EENT: PERRL/EOMI, ET tube, other (NG tube to suction) Neck: normal inspection (Large neck, no obvious JVD) Respiratory: rhonchi (Present centrally, sound loose), No lungs clear, No normal breath sounds, No rales Cardiac/Chest: regular rate, rhythm, No gallop Abdomen: other (Quiet postoperatively. Wound VAC in place.) Pelvic Exam: other (Rivera catheter. Good urine output over the last 48 hr) Skin: warm/dry, pallor Extremities: pedal edema, swelling (Decreased compared to the last several days) Neuro/Psych: no motor/sensory deficits (Moves all extremities weakly), No cognition abnormalities (Cognition appears intact.) ICD10 Worksheet Patient Problems: Problems Problem Status Onset Small bowel obstruction Acute Ovarian cancer Acute
--- NOTE | 2018-03-05 12:58 | GPN ---
DATE OF PROCEDURE: 03/05/2018 PROCEDURE PERFORMED: Therapeutic bronchoscopy. INDICATION FOR PROCEDURE: Respiratory failure, secretions in a patient who is on the ventilator. Th is procedure is being done to remove secretions, obtain deep cultures, and assess for possible extuba tion. DESCRIPTION OF PROCEDURE: The procedure was done in the patient's room in the intensive care unit. Informed consent was obtained from the patient's . Appropriate time-out was performed. 2 mg of intravenous Versed was used for conscious sedation. Approximately 20 mL of 1% lidocaine was used for anesthesia of the tracheobronchial tree. The fiberoptic bronchoscope was advanced via an adaptor on the end of the patient's endotracheal tube and into the distal trachea. There was a modest amount of secretions, somewhat thick and tenacious, found in the trachea and in the lower tracheobronchial tree bilaterally. These were removed relativ carrington easily with suction and lavage. The underlying mucosa was erythematous and somewhat edematous. No significant secretions persisted at the end of the procedure. A deep sample was obtained for rout ine aerobic cultures. The patient tolerated the procedure well. There were no complications. Vital signs and oxygen satur ations on oxygen on the ventilator remained normal throughout. IMPRESSION: Only modest secretions were found. There are no contraindications to extubation from a secretions/airway standpoint. A culture was sent. /[id number]/MODL
--- NOTE | 2018-03-05 15:20 | HOSPPROG ---
Hospitalist Progress Note Assessment/Plan: * Small bowel obstruction s/p tumor debulking, bowel resection -difficult surgery, friable tissue, multiple enterotomies -open abd wound - wound vac * Peritonitis -per surgery - extensive peritoneal soiling during OR -continue IV Invanz and IV diflucan -high risk for abscess/leak - ID following * Ovarian cancer -slow growing, indolent tumor -went 5 years after last debulking -prognosis good if she can survive this event * Acute respiratory failure -possible extubation today * Volume overload - got 12L fluid with surgery -diurese as tolerated * Hypocalcemia -replete per protocol * h/o medullary thyroid ca s/p thyroidectomy * Fatty liver with increased LFT -serologies pending -no evidence for liver mets -s/p liver biopsy * Coagulopathy - elevated INR resistant to Vit K -FFP as needed * Acute blood loss anemia -transfuse as needed * Hypothyroid -restart synthroid when taking PO * Obesity BMI 45 with SHAHIDA Subjective: weaning better Objective: Vital Signs Temp Pulse Resp BP Pulse Ox 36.9 C 91 11 L 165/71 H 96 03/05/18 12:00 03/05/18 14:35 03/05/18 14:35 03/05/18 14:00 03/05/18 14:35 Microbiology 03/05/18 12:00 - Final Sputum, Induced/Suctioned 03/04/18 14:05 - Final Sputum, Induced/Suctioned Laboratory Results 03/05/18 04:10 03/05/18 12:20 03/04/18 03/05/18 03/06/18 05:59 05:59 05:59 Intake Total 2153 2913 Output Total 7375 3175 Balance -2902 -262 PT 19.1 SEC (12.0-15.0) H 03/05/18 04:10 INR 1.59 (0.83-1.16) H 03/05/18 04:10 d/w Dr. Andrea regarding extubation plan CXR - unchanged infiltrates - Physical Exam Constitutional: no apparent distress, appears nourished, not in pain Cardiovascular: regular rate and rhythym, no murmur, rub, or gallop Respiratory: no respiratory distress, no rales or rhonchi, clear to auscultation Gastrointestinal: normoactive bowel sounds, soft, non-tender abdomen, no palpable masses Skin: no rashes or abrasions, no fluctuance, no induration Neurologic: other (intubated but arouses to voice), No AAOx3 Psychiatric: interacting appropriately, not anxious, No agitated ICD10 Worksheet Patient Problems: Problems Problem Status Onset Small bowel obstruction Acute Ovarian cancer Acute
--- NOTE | 2018-03-05 16:25 | ASMTCMCOM ---
CM Note CM Note Notes: Patient was extubated today and is on 6L 02. Patient remains a full code. Patient did wake up and told the nurse she wanted her family here.Several members have been to visit today.D/C plan remains TBD. CM will follow. Date Signed: 03/05/2018 04:24 PM Electronically Signed By:Sivan Cardozo LCSW
--- NOTE | 2018-03-05 17:23 | PCMIDPN ---
Assessment/Plan: Assessment/Plan: * Small bowel obstruction status post laparotomy with multiple enterotomies: Receiving ertapenem and fluconazole based on high risk for postoperative peritonitis or abscess formation after enterotomies during complex abdominal surgery related to metastatic ovarian cancer. Plan 7 days of antibiotic therapy postoperatively dependent on clinical course. * Fever: Low-grade temperature which is likely postoperative in etiology. Continue to monitor with plans for blood cultures if higher grade fever develops. Follow-up BAL culture as available. 03/05/18 17:20 03/05/18 17:24 Subjective: Patient extubated earlier today. Does not note significant abdominal pain. Bronchoscopy performed with some secretions noted. Objective: Vital Signs Temp Pulse Resp BP Pulse Ox 36.6 C 88 25 H 170/73 H 95 03/05/18 16:00 03/05/18 16:00 03/05/18 16:00 03/05/18 16:00 03/05/18 16:00 Microbiology 03/05/18 12:00 - Final Sputum, Induced/Suctioned 03/04/18 14:05 - Final Sputum, Induced/Suctioned Laboratory Results 03/05/18 15:51 03/05/18 12:20 03/04/18 03/05/18 03/06/18 05:59 05:59 05:59 Intake Total 2153 2913 Output Total 7047 5815 2175 Balance -2902 -262 -3000 Ertapenem #4 Fluconazole #4 Sputum 03/04/2018 no growth to date BAL specimen 03/05/2018 with mixed Gram stain Chest x-ray with bilateral interstitial infiltrates T-max 38.4 degrees - Physical Exam General Appearance: alert, no apparent distress, non-toxic EENT: No scleral icterus Respiratory: crackles (Left upper lung field anteriorly), No respiratory distress Cardiac/Chest: regular rate, rhythm Extremities: No inflammation Abdomen: non-tender, other (Wound VAC present without surrounding erythema), No distended Skin: No rash ICD10 Worksheet Patient Problems: Problems Problem Status Onset Ovarian cancer Acute Small bowel obstruction Acute
[2018-03-05] MEDS: TPN W/ FAMOTIDINE 1 EA BAG IV SCH (21:30)
[2018-03-05] MEDS ORDERED: POTASSIUM Cl (KCl) 50 ML IV ONE (21:34)
[2018-03-05] MEDS: ENOXAPARIN 60 MG/0.6 ML SYR SC SCH (21:54)
[2018-03-05] MEDS: FLUCONAZOLE/NaCl 100 ML IV SCH (23:22)
[2018-03-06] MEDS: ERTAPENEM 1 GM in NS 100 ML IV SCH ×2 (00:16→23:57)
[2018-03-06] MEDS: HYDROmorphONE/DILAUDID 1 MG/ML INJ IVP PRN ×5 (01:31→22:18)
[2018-03-06 04:34] LABS: PLATELET COUNT 133 10^3/uL (150-400)
[2018-03-06 04:57] LABS: INR 1.51 (0.83-1.16); PROTIME(PATIENT) 18.4 SEC (12.0-15.0)
[2018-03-06] MEDS ORDERED: CALCIUM GLUCONATE 50 ML IV ONE (05:22)
[2018-03-06] MEDS ORDERED: MAGNESIUM SULF 1 GM/DEXTROSE 100 ML IV ONE (05:22)
[2018-03-06] MEDS ORDERED: POTASSIUM Cl (KCl) 50 ML IV ONE (05:22)
[2018-03-06] MEDS: INSULIN REGULAR HUMAN 100 UNIT/ML UNIT SC SCH ×3 (05:59→17:34)
--- NOTE | 2018-03-06 08:25 | HOSPPROG ---
Hospitalist Progress Note Assessment/Plan: #Small bowel obstruction: s/p tumor debulking, bowel resection: multiple enterotomies. Open abd wound - wound vac #Peritonitis: per surgery - extensive peritoneal soiling during OR. IV Invanz/ Diflucan #Granulosa cell tumor: slow growing, indolent tumor. Plan for aromatase inhibitor when clinically improved # Acute respiratory failure: extubated 03/05. Edema on CXR (personally-reviewed) . Diuresing # Volume overload - got 12L fluid with surgery. Diuresing well. # Hypocalcemia: on protocol # h/o medullary thyroid ca s/p thyroidectomy #Fatty liver with increased LFT -YAMILETH weakly positive, negative anti-smooth. Liver bx path pending #Coagulopathy - elevated INR resistant to Vit K # Acute blood loss anemia: 2units 03/05 #Hypothyroid: synthroid when taking PO #Obesity BMI 45 with SHAHIDA #DVT ppx: Lovenox #Disp: ICU admission for ongoing IV abx, diuresis. Case d/w Dr. Andrea Subjective: very tired this morning. Passing flatus Objective: Vital Signs Temp Pulse Resp BP Pulse Ox 36.7 C 85 27 H 142/56 H 90 L 03/06/18 06:00 03/06/18 06:00 03/06/18 06:00 03/06/18 06:00 03/06/18 06:00 Microbiology 03/05/18 12:00 - Final Sputum, Induced/Suctioned 03/04/18 14:05 - Final Sputum, Induced/Suctioned Laboratory Results 03/06/18 04:20 03/06/18 04:20 03/05/18 03/06/18 03/07/18 05:59 05:59 05:59 Intake Total 2913 2723 Output Total 6862 5230 Balance -262 -2577 PT 18.4 SEC (12.0-15.0) H 03/06/18 04:20 INR 1.51 (0.83-1.16) H 03/06/18 04:20 - Time Spent With Patient Time Spent with Patient: greater than 35 minutes Time Spent with Patient: Greater than 35 minutes spent on this patients care, greater than 50% of time spent counseling, educating, and coordinating care regarding the above mentioned plan. - Physical Exam Constitutional: obese (pale, fatigued), other Ears, Nose, Mouth, Throat: moist mucous membranes, other (NG in place) Cardiovascular: regular rate and rhythym, edema (+2 leg edema) Respiratory: inspiratory crackles Gastrointestinal: other (abdominal wound vac ) Musculoskeletal: generalized weakness (sitting up in chair) Neurologic: CN II-XII Intact Psychiatric: flat affect ICD10 Worksheet Patient Problems: Problems Problem Status Onset Ovarian cancer Acute Small bowel obstruction Acute
[2018-03-06] MEDS: ENOXAPARIN 60 MG/0.6 ML SYR SC SCH ×2 (08:41→21:43)
[2018-03-06] MEDS: NYSTATIN POWDER 15 GM BTL TP SCH ×2 (08:42→21:42)
[2018-03-06] MEDS: FUROSEMIDE 40 MG/4 ML VIAL IVP SCH ×2 (08:42→21:44)
--- NOTE | 2018-03-06 10:52 | SOAPPROG ---
SOAP Progress Note Assessment/Plan: Assessment: Granulosa cell tumor: She had a long interval with her last debulking which was around 5 years ago. This is a fairly indolent tumor and with debulking she likely will obtain a long duration until necessitating a repeat oncologic intervention. Recurrent small-bowel obstruction: She underwent a complicated laparotomy with enterocolostomy for which she is postoperative day 4. Woundvac is in place. Receiving TPN for nutrition. Awaiting recovery of bowel status before giving her enteral nutrition, which might be a challenge. Small amount of flatus and stool today. Elevated PT and PTT: Normal fibrinogen. PT elevation could be from underlying vitamin k def, but wouldn't explain the elevated PTT. No active bleeding. Thrombocytopenia: Was started on Lovenox today, so unlikely to be HIT. Likely from critical illness. On ertapenem as well. Fevers: ID following. Remains febrile. Getting a bronch today. Concern for high risk of peritonitis post operatively. On ertapenem and fluconazole. Resp failure: Now extubated and on 4LNC. Up in chair for about 5 hours today. Plan: - ICU/post op care as you are doing - Granulosa-Thecal cell ovarian CA - after recovery, will try an aromatase inhibitor to try to slow recurrence/progression. Also will consider MSI testing and [facility] CDX testing. Subjective: Up in chair. wants more ice chips. Objective: Vital Signs Temp Pulse Resp BP Pulse Ox 36.7 C 96 20 120/56 L 93 03/06/18 06:00 03/06/18 10:00 03/06/18 10:00 03/06/18 10:00 03/06/18 10:00 Microbiology 03/04/18 14:05 - Final Sputum, Induced/Suctioned 03/05/18 12:00 - Final Sputum, Induced/Suctioned Laboratory Results 03/06/18 04:20 03/06/18 04:20 03/04/18 03/05/18 03/06/18 23:59 23:59 23:59 Intake Total 2678 2898 881 Output Total 4350 5300 1350 Balance -6741 -4311 -055 PT 18.4 SEC (12.0-15.0) H 03/06/18 04:20 INR 1.51 (0.83-1.16) H 03/06/18 04:20 Physical Exam - Physical Exam General Appearance: moderate distress Respiratory: crackles (bilateral) Cardiac/Chest: regular rate, rhythm Abdomen: other (wound vac. quiet abdomen) Skin: warm/dry ICD10 Worksheet Patient Problems: Problems Problem Status Onset Ovarian cancer Acute Small bowel obstruction Acute
--- NOTE | 2018-03-06 12:13 | SOAPPROG ---
SOAP Progress Note Assessment/Plan: Assessment: 62yo F s/p ex-lap, KIMBERLY, resection and repair of multiple enterotomies. - extubated and stable on NC - abdomen is soft and NG output is slowing. She had a small bM this AM. She has no bowel sounds - very cautious with starting PO intake on her. Will plan for clamp trial tomorrow and if tolerates will plan to dc NGT and start clears. Will still likely need TPN for foreseeable future Plan: 03/04/18 10:44 03/05/18 09:52 03/06/18 12:12 Subjective: hungry Objective: Vital Signs Temp Pulse Resp BP Pulse Ox 36.7 C 89 24 H 113/44 L 95 03/06/18 06:00 03/06/18 12:00 03/06/18 12:00 03/06/18 12:00 03/06/18 12:00 Microbiology 03/04/18 14:05 - Final Sputum, Induced/Suctioned 03/05/18 12:00 - Final Sputum, Induced/Suctioned Laboratory Results 03/06/18 04:20 03/06/18 04:20 03/05/18 03/06/18 03/07/18 05:59 05:59 05:59 Intake Total 2913 2723 Output Total 2962 9680 135 Balance -262 -2577 -1350 PT 18.4 SEC (12.0-15.0) H 03/06/18 04:20 INR 1.51 (0.83-1.16) H 03/06/18 04:20 ICD10 Worksheet Patient Problems: Problems Problem Status Onset Ovarian cancer Acute Small bowel obstruction Acute
--- NOTE | 2018-03-06 15:15 | PCMIDPN ---
Assessment/Plan: Assessment/Plan: * Small bowel obstruction status post laparotomy with multiple enterotomies: Slow clinical improvement postoperatively. Plan 7 days of ertapenem and fluconazole based on high risk of development of peritonitis or postoperative abscess (# 5/7). * Fever: Elevated temperatures have resolved. Sputum shows no growth. Continue to monitor over time. 03/06/18 15:11 Subjective: Patient complains of abdomen feeling sore. Sitting up in chair today. Objective: Vital Signs Temp Pulse Resp BP Pulse Ox 36.7 C 91 25 H 147/61 H 92 03/06/18 06:00 03/06/18 15:08 03/06/18 15:08 03/06/18 15:08 03/06/18 15:08 Microbiology 03/04/18 14:05 - Final Sputum, Induced/Suctioned 03/05/18 12:00 - Final Sputum, Induced/Suctioned Laboratory Results 03/06/18 04:20 03/06/18 12:20 03/05/18 03/06/18 03/07/18 05:59 05:59 05:59 Intake Total 2913 2723 47 Output Total 5475 5300 1350 Balance -262 -2929 -9963 Ertapenem # 5 Fluconazole # 5 Sputum and BAL cultures no growth Chest x-ray with bilateral increased interstitial markings - Physical Exam General Appearance: alert, no apparent distress EENT: NG Tube, No scleral icterus, No thrush Respiratory: coarse breath sounds, No respiratory distress Cardiac/Chest: regular rate, rhythm Abdomen: non-tender, other (Wound VAC in place without surrounding erythema), No distended - Line/s RUE PICC Lines: No drainage, No erythema ICD10 Worksheet Patient Problems: Problems Problem Status Onset Ovarian cancer Acute Small bowel obstruction Acute
--- NOTE | 2018-03-06 16:19 | PDINTPN ---
Soil Science Teacher Progress Note Assessment/Plan: Assessment: 62-year-old with metastatic ovarian cancer admitted with recurrent small-bowel obstruction secondary to abdominal/pelvic metastases admitted 02/26. Taken to the operating room 03/01 for lysis of adhesions, tumor debulking, and bowel resections. Metastatic ovarian cancer. Initial diagnosis approximately 10 years ago. Debulked previously. Slow growing, with recurrence 5 years ago. No chemotherapy on recurrence as slow growing and no good chemo options. Small bowel obstruction. Laparotomy 03/01. Surgery was over 7 hr with lysis of adhesions, tumor debulking, and large and small bowel resections. Returned to the ICU with closed abdominal fascia and wound VAC in place. Acute respiratory failure. Required ventilatory support since OR. Was hypoxemic secondary to volume overload/congestive heart failure and a component of pulmonary capillary leak/mild ARDS as well. CXR improved slowly. Eventually was able to tolerate CPAP. Extubated on 03/05 after bronchoscopy showed relatively minimal secretions. She has been stable since extubation, on oxygen. Volume overload. Weight up significantly. Input up by about 10 L postoperatively. Chest x-ray consistent with volume overload/congestive heart failure. On Lasix, with excellent diuresis over the last several days. Acute blood-loss anemia. Secondary to EBL of 2500 in OR. Has received 3 units of packed red cells along with fresh frozen plasma. Hematocrit 30 today after receiving another unit of blood yesterday. Nutrition: TPN. Metabolic: No issues identified currently. DVT prophylaxis: SCDs. On prophylactic Lovenox. GI prophylaxis: Famotidine in TPN. Prognosis: May be poor regarding surviving this hospitalization with extensive abdominal surgery in the setting of widespread intra-abdominal metastases. This will depend on what happens to/in the abdomen postoperatively. However thus far she has done quite well. Respiratory failure resolved. Patient remains full code. Plan: Continue care in the intensive care unit. Continue to follow pulmonary and abdominal status closely.. Continue Lasix diuresis, adjust as needed. May need to back off on this tomorrow if BUN rising. Continue antibiotics. Continue TPN. Continue prophylactic Lovenox. Pain control as needed. Continue to follow hemoglobin and hematocrit, laboratory, chest x-ray intermittently. 35 min of critical care time spent directly with the patient regarding issues as above. Discussed with the patient's , surgery, nursing, respiratory, and the ICU multi disciplinary team. Subjective: Doing okay. Denies significant pain or shortness of breath. Remains lethargic. Up in chair Objective: Vital Signs Temp Pulse Resp BP Pulse Ox 36.7 C 91 25 H 147/61 H 92 03/06/18 06:00 03/06/18 15:08 03/06/18 15:08 03/06/18 15:08 03/06/18 15:08 Microbiology 03/04/18 14:05 - Final Sputum, Induced/Suctioned 03/05/18 12:00 - Final Sputum, Induced/Suctioned Laboratory Results 03/06/18 04:20 03/06/18 12:20 03/05/18 03/06/18 03/07/18 05:59 05:59 05:59 Intake Total 2913 2723 47 Output Total 3179 5300 1350 Balance -262 -2577 -1303 PT 18.4 SEC (12.0-15.0) H 03/06/18 04:20 INR 1.51 (0.83-1.16) H 03/06/18 04:20 Laboratory Tests 03/06/18 03/06/18 04:20 04:20 Sodium 142 Potassium 3.8 Chloride 96 L Carbon Dioxide 40 H BUN 25 H Creatinine 0.8 Estimated GFR > 60 Glucose 187 H Calcium 8.3 L Ionized Calcium 1.10 L Phosphorus 4.1 Magnesium 1.8 CXR: Bilateral pulmonary infiltrates about the same. Physical Exam - Physical Exam General Appearance: no apparent distress, obese, other (Lethargic, arouses, responsive. Up in chair.) EENT: PERRL/EOMI, other (NG tube to suction, nasal cannula) Neck: normal inspection (No obvious jugular venous distension) Respiratory: lungs clear (Anteriorly), decreased breath sounds (At bases), rales (Few rales at bases), No rhonchi (No significant rhonchi. Mild central congestion with cough), No wheezing Cardiac/Chest: regular rate, rhythm (Distant heart tones), No gallop Abdomen: soft, other (Wound VAC in place), No normal bowel sounds (Decreased bowel sounds), No non-tender (Mild tenderness) Pelvic Exam: other (Rivera catheter in place, excellent urine output last several days with Lasix) Skin: warm/dry, pallor Extremities: pedal edema (1+, significantly decreased), swelling (Decreased) Neuro/Psych: no motor/sensory deficits (Globally weak), No cognition abnormalities ICD10 Worksheet Patient Problems: Problems Problem Status Onset Small bowel obstruction Acute Ovarian cancer Acute
[2018-03-06] MEDS: TPN W/ FAMOTIDINE 1 EA BAG IV SCH (21:41)
[2018-03-07] MEDS: FLUCONAZOLE/NaCl 100 ML IV SCH (00:03)
[2018-03-07] MEDS: INSULIN REGULAR HUMAN 100 UNIT/ML UNIT SC SCH ×5 (00:20→23:32)
[2018-03-07] MEDS: HYDROmorphONE/DILAUDID 1 MG/ML INJ IVP PRN ×2 (04:19→11:13)
[2018-03-07] MEDS: NYSTATIN POWDER 15 GM BTL TP SCH ×2 (08:24→22:00)
[2018-03-07] MEDS: ENOXAPARIN 60 MG/0.6 ML SYR SC SCH ×2 (08:24→22:00)
[2018-03-07] MEDS: FUROSEMIDE 40 MG/4 ML VIAL IVP SCH (08:24)
--- NOTE | 2018-03-07 08:47 | SOAPPROG ---
SOSUSAN Progress Note Assessment/Plan: Assessment: 62yo F s/p ex-lap, KIMBERLY, resection and repair of multiple enterotomies. - continues to be stable on NC - VSS - abdomen is soft, VAC holding suction and draining SS fluid - no bowel sounds, NGT with 200cc out overnight. Extended clamp today. If tolerates will remove but will only give chips as she really has absent bowel function. - cont tpn and BS abx. WBC remains normal Plan: 03/04/18 10:44 03/05/18 09:52 03/06/18 12:12 03/07/18 08:46 Subjective: still hungry Objective: Vital Signs Temp Pulse Resp BP Pulse Ox 36.4 C 85 23 H 141/58 H 91 L 03/07/18 06:00 03/07/18 06:00 03/07/18 06:00 03/07/18 06:00 03/07/18 06:00 Microbiology 03/04/18 14:05 - Final Sputum, Induced/Suctioned 03/05/18 12:00 - Final Sputum, Induced/Suctioned Laboratory Results 03/06/18 04:20 03/07/18 05:00 03/06/18 03/07/18 03/08/18 05:59 05:59 05:59 Intake Total 4253 938 Output Total 5300 4100 Balance -2577 -3162 PT 18.4 SEC (12.0-15.0) H 03/06/18 04:20 INR 1.51 (0.83-1.16) H 03/06/18 04:20 ICD10 Worksheet Patient Problems: Problems Problem Status Onset Ovarian cancer Acute Small bowel obstruction Acute
--- NOTE | 2018-03-07 11:36 | SOAPPROG ---
SOAP Progress Note Assessment/Plan: Assessment: Granulosa cell tumor: She had a long interval with her last debulking which was around 5 years ago. This is a fairly indolent tumor and with debulking she likely will obtain a long duration until necessitating a repeat oncologic intervention. Recurrent small-bowel obstruction: She underwent a complicated laparotomy with enterocolostomy for which she is postoperative day 4. Woundvac is in place. Receiving TPN for nutrition. Awaiting recovery of bowel status before giving her enteral nutrition, which might be a challenge. Small amount of flatus and stool today. Trying to clamp NG today. Elevated PT and PTT: Normal fibrinogen. PT elevation could be from underlying vitamin k def, but wouldn't explain the elevated PTT. No active bleeding. Thrombocytopenia: Was started on Lovenox today, so unlikely to be HIT. Likely from critical illness. On ertapenem as well. Plts 133k today. Fevers: ID following. Remains febrile. Concern for high risk of peritonitis post operatively. On ertapenem and fluconazole. She is up in the chair today. No new complaints. Frustrated with slow recovery. Plan: - ICU/post op care as you are doing - Granulosa-Thecal cell ovarian CA - after recovery, will try an aromatase inhibitor to try to slow recurrence/progression. Also will consider MSI testing and [facility] CDX testing. Subjective: "I want a popsicle". No complaints otherwise. , Oscar, at bedside. Objective: Vital Signs Temp Pulse Resp BP Pulse Ox 36.5 C 88 18 139/51 H 95 03/07/18 08:00 03/07/18 10:00 03/07/18 10:00 03/07/18 10:00 03/07/18 10:00 Microbiology 03/04/18 14:05 - Final Sputum, Induced/Suctioned Sputum Culture - Final 03/05/18 12:00 - Final Sputum, Induced/Suctioned Laboratory Results 03/06/18 04:20 03/07/18 05:00 03/05/18 03/06/18 03/07/18 23:59 23:59 23:59 Intake Total 2898 1669 150 Output Total 5300 3500 1950 Balance -2402 -1831 -1800 PT 18.4 SEC (12.0-15.0) H 03/06/18 04:20 INR 1.51 (0.83-1.16) H 03/06/18 04:20 Physical Exam - Physical Exam General Appearance: moderate distress Respiratory: rhonchi (scattered) Cardiac/Chest: regular rate, rhythm Abdomen: distended, other (wound vac in place), No normal bowel sounds Skin: pallor Neuro/Psych: depressed affect ICD10 Worksheet Patient Problems: Problems Problem Status Onset Ovarian cancer Acute Small bowel obstruction Acute
--- NOTE | 2018-03-07 13:24 | HOSPPROG ---
Hospitalist Progress Note Assessment/Plan: #Small bowel obstruction: s/p tumor debulking, bowel resection, multiple enterotomies. -wound vac -clamp NG today. Ice chips only #Peritonitis: IV Invanz/Diflucan #Granulosa cell tumor: slow growing, indolent tumor. Plan for aromatase inhibitor when clinically improved # Acute respiratory failure: extubated 03/05. Edema on CXR (personally-reviewed) . Diuresing # Volume overload - got 12L fluid with surgery. Diuresing well. # Hypocalcemia: on protocol # h/o medullary thyroid ca s/p thyroidectomy #Hyperglycemia: increase insulin to 12 units this alma in TPN #Fatty liver with increased LFT -YAMILETH weakly positive, negative anti-smooth. Liver bx path pending #Coagulopathy - elevated INR resistant to Vit K # Acute blood loss anemia: 2units 03/05 #Hypothyroid: synthroid when taking PO #Obesity BMI 45 with SHAHIDA #DVT ppx: Lovenox #Disp: ICU admission for ongoing IV abx, diuresis. Case d/w Dr. Andrea Subjective: still very weak Objective: Vital Signs Temp Pulse Resp BP Pulse Ox 36.6 C 83 17 140/74 H 96 03/07/18 12:00 03/07/18 12:00 03/07/18 12:00 03/07/18 12:00 03/07/18 12:00 Microbiology 03/04/18 14:05 - Final Sputum, Induced/Suctioned Sputum Culture - Final 03/05/18 12:00 - Final Sputum, Induced/Suctioned Laboratory Results 03/06/18 04:20 03/07/18 11:45 03/06/18 03/07/18 03/08/18 05:59 05:59 05:59 Intake Total 2983 938 Output Total 6990 4100 Balance -7707 -3162 PT 18.4 SEC (12.0-15.0) H 03/06/18 04:20 INR 1.51 (0.83-1.16) H 03/06/18 04:20 - Time Spent With Patient Time Spent with Patient: greater than 35 minutes Time Spent with Patient: Greater than 35 minutes spent on this patients care, greater than 50% of time spent counseling, educating, and coordinating care regarding the above mentioned plan. - Physical Exam Constitutional: obese, uncomfortable Eyes: PERRL Ears, Nose, Mouth, Throat: moist mucous membranes, other (NG in place) Cardiovascular: regular rate and rhythym, edema (+2-3 LE edema) Respiratory: no respiratory distress Gastrointestinal: other (wound vac in place) Genitourinary: colon in urethra Musculoskeletal: generalized weakness Neurologic: AAOx3, CN II-XII Intact Psychiatric: flat affect ICD10 Worksheet Patient Problems: Problems Problem Status Onset Ovarian cancer Acute Small bowel obstruction Acute
--- NOTE | 2018-03-07 15:29 | PDINTPN ---
[employer] Business Intelligence Consultant Progress Note Assessment/Plan: Assessment: 62-year-old with metastatic ovarian cancer admitted with recurrent small-bowel obstruction secondary to abdominal/pelvic metastases admitted 02/26. Taken to the operating room 03/01 for lysis of adhesions, tumor debulking, and bowel resections. Metastatic ovarian cancer. Initial diagnosis approximately 10 years ago. Debulked previously. Slow growing, with recurrence 5 years ago. No chemotherapy on recurrence as slow growing and no good chemo options. Small bowel obstruction. Laparotomy 03/01. Surgery was over 7 hr with lysis of adhesions, tumor debulking, and large and small bowel resections. Returned to the ICU with closed abdominal fascia and wound VAC in place. NG tube out today per surgery. Acute respiratory failure. Required ventilatory support post OR. Was hypoxemic secondary to volume overload/congestive heart failure and a component of pulmonary capillary leak/mild ARDS as well. CXR improved slowly. Eventually was able to tolerate CPAP. Extubated on 03/05 after bronchoscopy showed relatively minimal secretions. She has been stable since extubation, on oxygen at 4 L. Volume overload. Weight up significantly. Input up by about 10 L postoperatively. Chest x-ray consistent with volume overload/congestive heart failure. On Lasix, with excellent diuresis over the last several days: 7+ L out. Acute blood-loss anemia. Secondary to EBL of 2500 in OR. Has received 3 units of packed red cells along with fresh frozen plasma. Hematocrit 30 today after receiving 2U blood last 03/05. Nutrition: TPN. Metabolic: No issues identified currently. DVT prophylaxis: SCDs. On prophylactic Lovenox. GI prophylaxis: Famotidine in TPN. Prognosis: Improved with progress made following extensive abdominal surgery in the setting of widespread intra-abdominal metastases. Still dependent on what happens to/in the abdomen postoperatively. However thus far she has done quite well. Respiratory failure resolved. Patient remains full code. Plan: Continue care in the intensive care unit. Can transition to step-down status. Continue to follow pulmonary and abdominal status. Continue Lasix diuresis, but will decrease to once a day as BUN continues to rise: 35 today. Continue antibiotics. Continue TPN. Continue prophylactic Lovenox. Pain control as needed. Continue to follow hemoglobin and hematocrit, laboratory, chest x-ray intermittently. 40 min of critical care time spent directly with the patient regarding issues as above. Discussed with the patient's , surgery, nursing, respiratory, and the ICU multi disciplinary team. Subjective: Up in chair. Doing well. Denies shortness of breath or significant pain. Remains weak, tired. NG tube pulled per surgery Objective: Vital Signs Temp Pulse Resp BP Pulse Ox 36.6 C 83 27 H 144/70 H 94 03/07/18 12:00 03/07/18 14:00 03/07/18 14:00 03/07/18 14:00 03/07/18 14:00 Microbiology 03/04/18 14:05 - Final Sputum, Induced/Suctioned Sputum Culture - Final 03/05/18 12:00 - Final Sputum, Induced/Suctioned Laboratory Results 03/06/18 04:20 03/07/18 11:45 03/06/18 03/07/18 03/08/18 05:59 05:59 05:59 Intake Total 2723 938 Output Total 5300 4100 Balance -2577 -3162 PT 18.4 SEC (12.0-15.0) H 03/06/18 04:20 INR 1.51 (0.83-1.16) H 03/06/18 04:20 Laboratory Tests 03/07/18 05:00 Sodium 142 Potassium 4.5 Chloride 95 L Carbon Dioxide 40 H BUN 35 H Creatinine 0.7 Glucose 272 H Calcium 8.9 Physical Exam - Physical Exam General Appearance: alert, no apparent distress, obese, other (Up in chair) EENT: PERRL/EOMI, other (NG tube out, nasal cannula at 4 L) Neck: normal inspection (Large neck, no obvious JVD) Respiratory: lungs clear (Anteriorly), decreased breath sounds (At bases), rales (Few rales at bases), No rhonchi, No wheezing Cardiac/Chest: regular rate, rhythm (Distant heart tones), No gallop Abdomen: non-tender, soft, distended, other (Wound VAC in place), No normal bowel sounds (Quiet, maybe a few bowel sounds) Pelvic Exam: other (Rivera catheter, excellent urine output with Lasix over the last several days.) Skin: warm/dry, pallor Extremities: pedal edema (1+), swelling (Anasarca significantly decreased) Neuro/Psych: no motor/sensory deficits, No cognition abnormalities ICD10 Worksheet Patient Problems: Problems Problem Status Onset Small bowel obstruction Acute Ovarian cancer Acute
--- NOTE | 2018-03-07 15:34 | GOP ---
DATE OF OPERATION: 03/01/2018 SURGEON: Sebastian Mata MD MANAGER HYDRAULIC: BELLA Yousif. ANESTHESIOLOGIST: Ysabel Morales MD. PREOPERATIVE DIAGNOSIS: Small-bowel obstruction secondary to metastatic ovarian cancer. POSTOPERATIVE DIAGNOSIS: Small-bowel obstruction secondary to metastatic ovarian cancer. PROCEDURE PERFORMED: Laparotomy with extensive adhesiolysis, right hemicolectomy, small-bowel resect ion x2, resection of pelvic tumor, resection of peritoneal and abdominal wall tumors, wedge liver bio psy, and intraoperative colonoscopy. Repair of multiple enterotomies. Wound vacuum-assisted closure placement. FINDINGS: The patient was found to have an open sigmoid colon with no evidence of obstruction on col onoscopy. She had extensive ovarian cancer throughout the abdomen involving multiple loops of small bowel and the right colon. In the right lower quadrant was a tennis ball-size mass which had invaded into the cecum and right colon but was not the actual cause of her obstruction. She had multiple pe ritoneal implants and an abdominal wall implant which were about 2-3 cm in size and were removed. In the left lower quadrant, she had a very large mesh which pushed the sigmoid colon out of the way but did not invade the sigmoid colon. However, multiple loops of small bowel were attached to and invad ed by this tumor mass, which were quite difficult to remove. Finally, her liver showed fatty infiltr ation but no evidence of metastatic disease or cirrhosis. DESCRIPTION OF PROCEDURE: The patient was taken to the operating room where she received a satisfact ory general endotracheal anesthesia by Dr. Morales. A brief attempt was made at a laparoscopy, but n o free space could be identified. Midline abdominal incision was then opened carefully. The small b owel was tightly adherent to the midline incision. This was tediously dissected free. The ensuing d issection was then extremely difficult and tedious with multiple enterotomies. The small bowel was d issected free. It was particularly stuck in the left lower quadrant on the left side of the abdomina l cavity, but the loops were slowly individually freed up and followed until the entire GI tract coul d be evaluated. In the right lower quadrant, a mass was mobilized away from the abdominal wall away from the ureter. It was invading the colon. The lateral peritoneal reflection of the right colon wa s mobilized, and eventually this segment was removed by dividing the ascending colon with a MAXIMILIAN stapl er and the terminal ileum with a MAXIMILIAN stapler. Mesentery in between was divided with the Harmonic Sca lpel where necessary and that specimen was removed. However, that did not seem to resolve the obstru ction as nondilated loops of bowel were leading into the cecum. Again, tedious dissection ensued peyton eing up all the loops of the small intestine. Several enterotomies had to be repaired. This was don e usually with a running 3-0 Prolene suture reinforced with some interrupted 3-0 Vicryl external sutu res. Dissection extended down to the mass in the left lower quadrant. At that point, an intraoperative colonoscopy was performed to identify which segment was actually col on as the loops were sort of fused together by this tumor. The colon appeared to be completely separ ate and not obstructed. The colonoscope was removed after suctioning out the air. The colon appeare d to be completely unobstructed despite this large mass. Loops of small bowel were then dissected fr ee. They were totally invaded with ovarian cancer nodules. Eventually, after all the dissection, a section of 4-5 feet of small bowel was removed including tumor nodules including areas of enterotomie s and including an area of small bowel that appeared to be ischemic. The mesentery was divided with the Harmonic Scalpel and/or 3-0 Vicryl suture ligatures, and the section of small bowel was removed. A 2nd section of small bowel was removed because it appeared to be ischemic after the dissection. T his was approximately a 4-inch section of small bowel. It was divided with MAXIMILIAN staplers and then sixto nastomosed with 2 applications of the MAXIMILIAN stapler. Suture lines were reinforced with interrupted 3-0 Vicryl sutures. The mesentery was closed with 3-0 Vicryl running suture. After removal of these sections, the small bowel was then anastomosed to the right colon again with a MAXIMILIAN stapler and a cross application of the stapler. Mesentery was closed with 3-0 Vicryl, and the s uture line was reinforced with interrupted 3-0 Vicryl sutures. The bowel was run multiple times, and any area of suspicion was reinforced with 3-0 Vicryl interrupted sutures. There was no evidence of any further leakage from the bowel. The abdomen was copiously irrigated with 6 L of fluid. Intestin al continuity had been reestablished and nonobstructed. There still remained multiple tumor nodules throughout the abdominal cavity including a large mass in the left lower quadrant. Attention was turned to the liver, which had a thickened fatty edge but no obvious metastatic disease . A wedge biopsy was taken. Hemostasis was obtained with electrocautery and with 0 Vicryl liver sut ures. Wound was copiously irrigated. The linea alba was then closed with a running #1 PDS suture an d reinforced periodically with #1 Vicryl interrupted sutures, and the subcu was left open with a woun d VAC placed. She tolerated the procedure amazingly well. Blood loss from the procedure was probably 2000 cc. The re were no complications. She was taken to the recovery in the ICU in stable condition and intubated . /[id number]/MODL
--- NOTE | 2018-03-07 16:13 | PCMIDPN ---
Assessment/Plan: Assessment/Plan: * Small bowel obstruction status post laparotomy with multiple enterotomies: Continued clinical improvement. White blood cell count remains normal without evidence of fever. Completing 7 days of antibiotic therapy postoperatively given high risk of postoperative peritonitis or abscess formation. Stop dates have been applied to both ertapenem and fluconazole. * Fever: Resolved. Will follow peripherally at this point. Please notify for recurrent fever or abdominal changes. Last dose of antibiotics will be provided on 03/09/2018 as this represents 7 days of therapy post procedure. 03/07/18 16:10 Subjective: Patient with abdominal soreness. NG tube removed. Patient sitting up up in chair today. Objective: Vital Signs Temp Pulse Resp BP Pulse Ox 36.6 C 83 27 H 144/70 H 94 03/07/18 12:00 03/07/18 14:00 03/07/18 14:00 03/07/18 14:00 03/07/18 14:00 Microbiology 03/04/18 14:05 - Final Sputum, Induced/Suctioned Sputum Culture - Final 03/05/18 12:00 - Final Sputum, Induced/Suctioned Laboratory Results 03/06/18 04:20 03/07/18 11:45 03/06/18 03/07/18 03/08/18 05:59 05:59 05:59 Intake Total 2723 938 Output Total 5300 4100 Balance -9719 -6551 Ertapenem # 6 Fluconazole # 6 - Physical Exam General Appearance: alert, no apparent distress EENT: No scleral icterus, No thrush Respiratory: coarse breath sounds, No respiratory distress Cardiac/Chest: regular rate, rhythm Abdomen: non-tender, other (Wound VAC in place without surrounding erythema), No distended - Line/s RUE PICC Lines: No drainage, No erythema ICD10 Worksheet Patient Problems: Problems Problem Status Onset Ovarian cancer Acute Small bowel obstruction Acute
[2018-03-07] MEDS: ONDANSETRON 4 MG/2 ML VIAL IVP PRN (16:21)
[2018-03-07] MEDS: TPN W/ FAMOTIDINE 1 EA BAG IV SCH (21:59)
[2018-03-07] MEDS: ERTAPENEM 1 GM in NS 100 ML IV SCH (23:33)
[2018-03-08 05:40] LABS: PLATELET COUNT 237 10^3/uL (150-400)
[2018-03-08 05:44] LABS: INR 1.43 (0.83-1.16); PROTIME(PATIENT) 17.6 SEC (12.0-15.0)
[2018-03-08] MEDS: HYDROmorphONE/DILAUDID 1 MG/ML INJ IVP PRN ×3 (06:29→23:09)
[2018-03-08] MEDS: INSULIN REGULAR HUMAN 100 UNIT/ML UNIT SC SCH (06:29)
--- NOTE | 2018-03-08 08:49 | PDINTPN ---
Manual Equipment Mechanic Progress Note Assessment/Plan: Assessment/plan: 62-year-old with metastatic ovarian cancer admitted with recurrent small-bowel obstruction secondary to abdominal/pelvic metastases admitted 02/26. Taken to the operating room 03/01 for lysis of adhesions, tumor debulking, and bowel resections. * Metastatic ovarian cancer. Initial diagnosis approximately 10 years ago. Debulked previously. Slow growing, with recurrence 5 years ago. No chemotherapy on recurrence as slow growing and no good chemo options. * Small bowel obstruction. Laparotomy 03/01. Surgery was over 7 hr with lysis of adhesions, tumor debulking, and large and small bowel resections. Returned to the ICU with closed abdominal fascia and wound VAC in place. NG tube out today per surgery. * Acute respiratory failure. Required ventilatory support post OR. Was hypoxemic secondary to volume overload/congestive heart failure and a component of pulmonary capillary leak/mild ARDS as well. CXR improved slowly. Eventually was able to tolerate CPAP. Extubated on 03/05 after bronchoscopy showed relatively minimal secretions. She has been stable since extubation, on oxygen at 4 L. -wean FiO2 as tolerated * Volume overload. Weight up significantly. Input up by about 10 L postoperatively. Chest x-ray consistent with volume overload/congestive heart failure. On Lasix, with excellent diuresis over the last several days: 7+ L out. -continue diuresis * Acute blood-loss anemia. Secondary to EBL of 2500 in OR. Has received 3 units of packed red cells along with fresh frozen plasma. Hematocrit 30 today after receiving 2U blood last 03/05. -stable * Nutrition: TPN. Clear liquid started today. * Metabolic: No issues identified currently. * DVT prophylaxis: SCDs. On prophylactic Lovenox. * GI prophylaxis: Famotidine in TPN. * Disposition-remain in SDU you for now Subjective: Resting comfortably. Denies any pain. Awake and alert. Objective: Vital Signs Temp Pulse Resp BP Pulse Ox 36.6 C 80 22 H 130/57 H 91 L 03/08/18 07:45 03/08/18 07:45 03/08/18 07:45 03/08/18 07:45 03/08/18 07:45 Microbiology 03/04/18 14:05 - Final Sputum, Induced/Suctioned Sputum Culture - Final 03/05/18 12:00 - Final Sputum, Induced/Suctioned Laboratory Results 03/08/18 05:20 03/08/18 05:20 03/07/18 03/08/18 03/09/18 05:59 05:59 05:59 Intake Total 938 2871 Output Total 4100 2450 Balance -3162 421 PT 17.6 SEC (12.0-15.0) H 03/08/18 05:20 INR 1.43 (0.83-1.16) H 03/08/18 05:20 Laboratory Results 03/08/18 05:20 03/08/18 05:20 03/08/18 03/08/18 05:20 05:20 Calcium 8.6 mg/dL mg/dL (8.5 - 10.4) Ionized Calcium 1.26 MMOL/L MMOL/L (1.12 - 1.30) Phosphorus 3.4 mg/dL mg/dL (2.5 - 4.5) Magnesium 2.1 mg/dL mg/dL (1.6 - 2.3) Total Bilirubin 1.1 mg/dL mg/dL (0.1 - 1.4) AST 51 IU/L H IU/L (14 - 46) ALT 71 IU/L H IU/L (9 - 52) Alkaline Phosphatase 94 IU/L IU/L (38 - 126) Total Protein 5.1 g/dL L g/dL (6.3 - 8.2) Albumin 2.4 g/dL L g/dL (3.5 - 5.0) Triglycerides 254 mg/dL H mg/dL (35 - 135) - Time Spent With Patient Time Spent With Patient: 35 min of time spent with patient, over 1/2 involved with coordination of care or counseling. Case discussed with nursing. Physical Exam - Physical Exam General Appearance: alert, no apparent distress EENT: PERRL/EOMI Neck: non-tender Respiratory: chest non-tender, lungs clear, normal breath sounds Cardiac/Chest: normal peripheral pulses, regular rate, rhythm, systolic murmur Peripheral Pulses: 2+: carotid (R), carotid (L), femoral (R), femoral (L), dorsalis-pedis (R), dorsalis-pedis (L) Abdomen: soft, No non-tender Pelvic Exam: deferred Rectal: deferred Skin: normal color, warm/dry Extremities: non-tender, normal inspection, other (Lower extremity edema) Neuro/Psych: alert ICD10 Worksheet Patient Problems: Problems Problem Status Onset Ovarian cancer Acute Small bowel obstruction Acute
[2018-03-08] MEDS: NYSTATIN POWDER 15 GM BTL TP SCH ×2 (08:52→20:44)
[2018-03-08] MEDS: ENOXAPARIN 60 MG/0.6 ML SYR SC SCH (08:52)
[2018-03-08] MEDS: FUROSEMIDE 40 MG/4 ML VIAL IVP SCH (08:53)
--- NOTE | 2018-03-08 09:05 | HOSPPROG ---
Hospitalist Progress Note Assessment/Plan: #Small bowel obstruction: POD #7 from rt tuan-colectomy, tumor debulking, sm bowel resection, multiple enterotomies. -wound vac changed today, cont wound care -tiral clear liquids per surg #Peritonitis: cont IV Invanz/Diflucan #Granulosa cell tumor: slow growing, indolent tumor. Plan for aromatase inhibitor when clinically improved # Acute respiratory failure: extubated 03/05. Edema on CXR (personally-reviewed) # Volume overload - got 12L fluid with surgery. Diuresing well, 9L neg, BUN 21 - -> 37 -cont IV Lasix # Hypocalcemia: on protocol # h/o medullary thyroid ca s/p thyroidectomy #Hyperglycemia: increased insulin to 12 units in TPN last night - up-titrate insulin tomorrow if bg's persist elevated throughout the day #Fatty liver with increased LFT -YAMILETH weakly positive, negative anti-smooth. -Liver bx path pending #Coagulopathy - elevated INR resistant to Vit K # Acute blood loss anemia: s/p 2 units 03/05, stable #Hypothyroid: resume synthroid #Depression: on high dose prozac, resume at 40 mg daily and up-titrate #Obesity BMI 45 with SHAHIDA #DVT ppx: Lovenox #Disp: cont inpt, Case d/w Dr. Jose Subjective: Pt doing ok, up to side of bed, increased pain with activity. No fevers/chills. Tolerating clear liquids, small BM overnight. No N/V. Objective: Vital Signs Temp Pulse Resp BP Pulse Ox 36.6 C 80 22 H 130/57 H 91 L 03/08/18 07:45 03/08/18 07:45 03/08/18 07:45 03/08/18 07:45 03/08/18 07:45 Microbiology 03/04/18 14:05 - Final Sputum, Induced/Suctioned Sputum Culture - Final 03/05/18 12:00 - Final Sputum, Induced/Suctioned Laboratory Results 03/08/18 05:20 03/08/18 05:20 03/07/18 03/08/18 03/09/18 05:59 05:59 05:59 Intake Total 938 2871 Output Total 4100 2450 Balance -3162 421 PT 17.6 SEC (12.0-15.0) H 03/08/18 05:20 INR 1.43 (0.83-1.16) H 03/08/18 05:20 - Physical Exam Constitutional: no apparent distress, obese Eyes: PERRL Ears, Nose, Mouth, Throat: moist mucous membranes Cardiovascular: regular rate and rhythym Respiratory: no respiratory distress, clear to auscultation Gastrointestinal: other (soft, obese, wound vac functioning with healthy tissue edges, no erythema or purulence) Skin: warm Musculoskeletal: full muscle strength Neurologic: AAOx3 Psychiatric: interacting appropriately ICD10 Worksheet Patient Problems: Problems Problem Status Onset Ovarian cancer Acute Small bowel obstruction Acute
--- NOTE | 2018-03-08 09:17 | SOAPPROG ---
SOAP Progress Note Assessment/Plan: Assessment: 62 Y F metastatic ovarian CA c bowel obstruction, s/p challenging laparotomy c enterocolostomy, partial colon resection with tumor debulking, friable bowel, liver biopsy, extensive adhesiolysis c friable bowel and multiple enterotomy repairs. S: Extubated. Doing well overall. Passing gas and having BMs. Pain controlled. O: Alert Afebrile VSS, off pressors Hct stable Abdomen: soft, wound vac taken down to reveal healthy granulation tissue throughout, no surrounding erythema or warmth : uop adequate Plan: Advance to clears. Continue postop management. 03/08/18 09:16 Objective: Vital Signs Temp Pulse Resp BP Pulse Ox 36.6 C 80 22 H 130/57 H 91 L 03/08/18 07:45 03/08/18 07:45 03/08/18 07:45 03/08/18 07:45 03/08/18 07:45 Microbiology 03/04/18 14:05 - Final Sputum, Induced/Suctioned Sputum Culture - Final 03/05/18 12:00 - Final Sputum, Induced/Suctioned Laboratory Results 03/08/18 05:20 03/08/18 05:20 03/07/18 03/08/18 03/09/18 05:59 05:59 05:59 Intake Total 938 2871 Output Total 4100 2450 Balance -3162 421 PT 17.6 SEC (12.0-15.0) H 03/08/18 05:20 INR 1.43 (0.83-1.16) H 03/08/18 05:20 ICD10 Worksheet Patient Problems: Problems Problem Status Onset Ovarian cancer Acute Small bowel obstruction Acute
[2018-03-08] MEDS: fentaNYL 100 MCG/2 ML INJ IVP PRN (09:21)
[2018-03-08] MEDS: FLUoxetine 20 MG CAP PO SCH (13:10)
[2018-03-08] MEDS: INSULIN REGULAR, HUMAN 100 UNIT/1 ML VIAL HIGH SC SCH ×2 (13:28→18:14)
[2018-03-08] MEDS: LEVOTHYROXINE 137 MCG TAB PO SCH (14:38)
[2018-03-08] MEDS: ENOXAPARIN 40 MG/0.4 ML SYR SC SCH (20:42)
[2018-03-08] MEDS: TPN W/ FAMOTIDINE 1 EA BAG IV SCH (20:50)
[2018-03-08] MEDS: FLUCONAZOLE/NaCl 100 ML IV SCH ×2 (22:55)
[2018-03-09] MEDS: ERTAPENEM 1 GM in NS 100 ML IV SCH (00:08)
[2018-03-09] MEDS: INSULIN REGULAR, HUMAN 100 UNIT/1 ML VIAL HIGH SC SCH ×4 (00:08→17:54)
[2018-03-09 05:29] LABS: PLATELET COUNT 318 10^3/uL (150-400)
[2018-03-09] MEDS: LEVOTHYROXINE 137 MCG TAB PO SCH (05:30)
--- NOTE | 2018-03-09 08:28 | PDINTPN ---
Fbi Profiler Progress Note Assessment/Plan: Assessment/plan: 62-year-old with metastatic ovarian cancer admitted with recurrent small-bowel obstruction secondary to abdominal/pelvic metastases admitted 02/26. Taken to the operating room 03/01 for lysis of adhesions, tumor debulking, and bowel resections. * Metastatic ovarian cancer. Initial diagnosis approximately 10 years ago. Debulked previously. Slow growing, with recurrence 5 years ago. No chemotherapy on recurrence as slow growing and no good chemo options. * Small bowel obstruction. Laparotomy 03/01. Surgery was over 7 hr with lysis of adhesions, tumor debulking, and large and small bowel resections. Returned to the ICU with closed abdominal fascia and wound VAC in place. NG tube out today per surgery. * Acute respiratory failure. Required ventilatory support post OR. Was hypoxemic secondary to volume overload/congestive heart failure and a component of pulmonary capillary leak/mild ARDS as well. CXR improved slowly. Eventually was able to tolerate CPAP. Extubated on 03/05 after bronchoscopy showed relatively minimal secretions. She has been stable since extubation, on oxygen at 4 L. -wean FiO2 as tolerated * Volume overload. Weight up significantly. Input up by about 10 L postoperatively. Chest x-ray consistent with volume overload/congestive heart failure. On Lasix, with excellent diuresis over the last several days: Improved -continue diuresis * Acute blood-loss anemia. Secondary to EBL of 2500 in OR. Has received 3 units of packed red cells along with fresh frozen plasma. Hematocrit 30 today after receiving 2U blood last 03/05. -stable * Nutrition: TPN. Clear liquid started today. * Metabolic: No issues identified currently. * DVT prophylaxis: SCDs. On prophylactic Lovenox. * GI prophylaxis: Famotidine in TPN. * Disposition-likely stable for transfer to medical surgical floor Subjective: Complains of some nausea. Pain well tolerated. Objective: Vital Signs Temp Pulse Resp BP Pulse Ox 36.4 C 75 22 H 114/52 L 95 03/09/18 07:43 03/09/18 07:43 03/09/18 07:43 03/09/18 07:43 03/09/18 07:43 Microbiology 03/05/18 12:00 - Final Sputum, Induced/Suctioned Sputum Culture - Final Laboratory Results 03/09/18 04:50 03/09/18 04:50 03/08/18 03/09/18 03/10/18 05:59 05:59 05:59 Intake Total 2871 3361 Output Total 8310 3205 Balance 421 1466 PT 17.6 SEC (12.0-15.0) H 03/08/18 05:20 INR 1.43 (0.83-1.16) H 03/08/18 05:20 Laboratory Results 03/09/18 04:50 03/09/18 04:50 03/09/18 04:50 Calcium 8.7 mg/dL mg/dL (8.5 - 10.4) Total Bilirubin 0.8 mg/dL mg/dL (0.1 - 1.4) AST 34 IU/L IU/L (14 - 46) ALT 68 IU/L H IU/L (9 - 52) Alkaline Phosphatase 93 IU/L IU/L (38 - 126) Total Protein 5.1 g/dL L g/dL (6.3 - 8.2) Albumin 2.4 g/dL L g/dL (3.5 - 5.0) - Time Spent With Patient Time Spent With Patient: 35 min of time spent patient, over 1/2 involved with coordination of care or counseling. Case discussed with nursing Physical Exam - Physical Exam General Appearance: WD/WN, alert, no apparent distress EENT: PERRL/EOMI Neck: non-tender, full range of motion Respiratory: chest non-tender, lungs clear Cardiac/Chest: normal peripheral pulses, regular rate, rhythm Abdomen: normal bowel sounds, soft, No non-tender Pelvic Exam: deferred Rectal: deferred Skin: normal color, warm/dry Extremities: normal range of motion, non-tender, normal inspection, normal capillary refill Neuro/Psych: no motor/sensory deficits, alert, normal mood/affect, oriented x 3 ICD10 Worksheet Patient Problems: Problems Problem Status Onset Ovarian cancer Acute Small bowel obstruction Acute
[2018-03-09] MEDS: FLUoxetine 20 MG CAP PO SCH (08:57)
[2018-03-09] MEDS: FUROSEMIDE 40 MG/4 ML VIAL IVP SCH (08:57)
[2018-03-09] MEDS: NYSTATIN POWDER 15 GM BTL TP SCH ×2 (08:57→20:58)
[2018-03-09] MEDS: ENOXAPARIN 40 MG/0.4 ML SYR SC SCH ×2 (08:57→20:57)
--- NOTE | 2018-03-09 09:01 | ASMTCMCOM ---
CM Note CM Note Notes: Patient progress discussed in rounds. Pt continues to progress in therapies. Pt recommends HHC vs. SNF. CM to follow. Date Signed: 03/09/2018 09:00 AM Electronically Signed By:Jayde Lamb
[2018-03-09] MEDS: HYDROmorphONE/DILAUDID 1 MG/ML INJ IVP PRN ×2 (09:03→17:03)
[2018-03-09] MEDS: ONDANSETRON 4 MG/2 ML VIAL IVP PRN ×2 (09:03→15:33)
--- NOTE | 2018-03-09 10:57 | SOAPPROG ---
SOAP Progress Note Assessment/Plan: Assessment/Plan: 62 Y F metastatic ovarian CA c bowel obstruction, s/p challenging laparotomy c enterocolostomy, partial colon resection with tumor debulking, friable bowel, liver biopsy, extensive adhesiolysis c friable bowel and multiple enterotomy repairs. Seen and examined with Dr. Mata. Doing quite well. Up working with PT using walker. Advance diet. Afebrile. WBCs slightly up today. Wound vac in place. Plan for change tomorrow. Transfer to med surg. S: up oob c assistance O: alert, using walker 03/09/18 10:54 Objective: Vital Signs Temp Pulse Resp BP Pulse Ox 36.4 C 79 22 H 114/52 L 95 03/09/18 07:43 03/09/18 10:10 03/09/18 07:43 03/09/18 07:43 03/09/18 07:43 Microbiology 03/05/18 12:00 - Final Sputum, Induced/Suctioned Sputum Culture - Final Laboratory Results 03/09/18 04:50 03/09/18 04:50 03/08/18 03/09/18 03/10/18 05:59 05:59 05:59 Intake Total 2871 3361 250 Output Total 2450 1895 900 Balance 421 1466 -650 PT 17.6 SEC (12.0-15.0) H 03/08/18 05:20 INR 1.43 (0.83-1.16) H 03/08/18 05:20 ICD10 Worksheet Patient Problems: Problems Problem Status Onset Ovarian cancer Acute Small bowel obstruction Acute
--- NOTE | 2018-03-09 13:38 | HOSPPROG ---
Hospitalist Progress Note Assessment/Plan: #Small bowel obstruction: POD #8 from rt tuan-colectomy, tumor debulking, sm bowel resection, multiple enterotomies. -abdominal wound vac, cont wound care -advance diet per surg #Peritonitis: S/P 1 week Invanz/Diflucan #Granulosa cell tumor: slow growing, indolent tumor. Plan for aromatase inhibitor when clinically improved # Acute respiratory failure: extubated 03/05. Now on 4 LPM -wean O2 as able # Volume overload - got 12L fluid with surgery. Diuresing well, 9L neg, BUN 21 - -> 37 --> 34 -cont IV Lasix # Hypocalcemia: on protocol # h/o medullary thyroid ca s/p thyroidectomy #Hyperglycemia: bg's improved with increased insulin in tpn, now up to 30 units #Fatty liver with increased LFT - mostly normalized -YAMILETH weakly positive, negative anti-smooth. -Liver bx path pending #Coagulopathy - elevated INR resistant to Vit K # Acute blood loss anemia: s/p 2 units 03/05, stable #Hypothyroid: resume synthroid #Depression: on high dose prozac, resumed yest at 40 mg daily and will up- titrate #Obesity BMI 45 with SHAHIDA #DVT ppx: Lovenox #Disp: cont inpt, Case d/w Dr. Jose Subjective: Pt doing ok, up in chair. Feels weak. Pain is controlled. Tolerating clears. No N/V. Had small BM. NO fevers/chills. No CP or SOB. Objective: Vital Signs Temp Pulse Resp BP Pulse Ox 36.6 C 82 22 H 116/43 L 95 03/09/18 12:00 03/09/18 12:00 03/09/18 12:00 03/09/18 12:00 03/09/18 07:43 Microbiology 03/05/18 12:00 - Final Sputum, Induced/Suctioned Sputum Culture - Final Laboratory Results 03/09/18 04:50 03/09/18 04:50 03/08/18 03/09/18 03/10/18 05:59 05:59 05:59 Intake Total 2871 3361 850 Output Total 2450 1895 1300 Balance 421 1466 -450 PT 17.6 SEC (12.0-15.0) H 03/08/18 05:20 INR 1.43 (0.83-1.16) H 03/08/18 05:20 - Physical Exam Constitutional: no apparent distress, obese Eyes: PERRL Ears, Nose, Mouth, Throat: moist mucous membranes Cardiovascular: regular rate and rhythym Respiratory: no respiratory distress, clear to auscultation Gastrointestinal: normoactive bowel sounds, soft, non-tender abdomen, other ( obese) Skin: warm Musculoskeletal: full muscle strength Neurologic: AAOx3 Psychiatric: interacting appropriately ICD10 Worksheet Patient Problems: Problems Problem Status Onset Ovarian cancer Acute Small bowel obstruction Acute
--- NOTE | 2018-03-09 14:01 | ASMTCMCOM ---
CM Note CM Note Notes: CM met with pt and family. Pt wants to go home with homecare with family supports. Pt has [employer] insurance. CM called and found [facility] ([phone], F [phone]) who can provide services to [place]. does not use [employer]. CM faxed pt information to them. CM to follow. Date Signed: 03/09/2018 02:00 PM Electronically Signed By:SEBASTIEN Johnson
[2018-03-09] MEDS: TPN W/ FAMOTIDINE 1 EA BAG IV SCH (20:57)
[2018-03-10] MEDS: INSULIN REGULAR, HUMAN 100 UNIT/1 ML VIAL HIGH SC SCH ×4 (00:19→17:47)
[2018-03-10] MEDS: HYDROmorphONE/DILAUDID 1 MG/ML INJ IVP PRN (04:52)
[2018-03-10 05:02] LABS: PLATELET COUNT 415 10^3/uL (150-400)
[2018-03-10] MEDS: LEVOTHYROXINE 137 MCG TAB PO SCH (05:02)
--- NOTE | 2018-03-10 09:15 | SOAPPROG ---
ADEN Progress Note Assessment/Plan: Assessment/Plan: 62 Y F metastatic ovarian CA c bowel obstruction, s/p challenging laparotomy c enterocolostomy, partial colon resection with tumor debulking, friable bowel, liver biopsy, extensive adhesiolysis c friable bowel and multiple enterotomy repairs. Seen and examined with Dr. Mata. Doing quite well. Elevation of WBCs is somewhat concerning. Will get UA and CXR. If worsens or fever/other problems may need abd/pel CT. Still, clinically she is looking good. Diet advanced. Continue TPN for now until increased PO intake. Oral pain meds ordered. Continue PT/OT. Vac to suction. S/O: sleeping--seems to be talking in her sleep--but arousable. pain controlled. abd soft, vac to suction. 03/10/18 09:15 Objective: Vital Signs Temp Pulse Resp BP Pulse Ox 36.3 C 80 14 121/38 H 97 03/10/18 00:00 03/10/18 00:00 03/10/18 00:00 03/10/18 00:00 03/10/18 00:00 Laboratory Results 03/10/18 04:45 03/10/18 04:45 03/09/18 03/10/18 03/11/18 05:59 05:59 05:59 Intake Total 3361 3302 Output Total 5754 9320 Balance 1466 982 PT 17.6 SEC (12.0-15.0) H 03/08/18 05:20 INR 1.43 (0.83-1.16) H 03/08/18 05:20 ICD10 Worksheet Patient Problems: Problems Problem Status Onset Ovarian cancer Acute Small bowel obstruction Acute
[2018-03-10] MEDS: FLUoxetine 20 MG CAP PO SCH (09:21)
[2018-03-10] MEDS: ENOXAPARIN 40 MG/0.4 ML SYR SC SCH ×2 (09:21→21:15)
[2018-03-10] MEDS: NYSTATIN POWDER 15 GM BTL TP SCH ×2 (09:21→21:15)
[2018-03-10] MEDS: OXYCODONE/APAP 5/325 TAB PO PRN ×2 (09:22→14:43)
[2018-03-10] MEDS: FUROSEMIDE 40 MG/4 ML VIAL IVP SCH (09:23)
[2018-03-10] MEDS ORDERED: HYDROmorphONE/DILAUDID 1 MG/ML INJ IVP PRN (09:55)
--- NOTE | 2018-03-10 11:28 | HOSPPROG ---
Hospitalist Progress Note Assessment/Plan: #Small bowel obstruction: POD #9 from rt tuan-colectomy, tumor debulking, sm bowel resection, multiple enterotomies. -abdominal wound vac, cont wound care -advance diet per surg #Peritonitis: S/P 1 week Invanz/Diflucan #Leukocytosis: wbcs trending up, no fevers -CXR ordered per surg, defer ua without symptoms -low threshold for abd CT if worsens or develops fevers or increased pain -trend #Granulosa cell tumor: slow growing, indolent tumor. Intra-abdominal biopsies + granulosa cell tumor -oncology following, plan for aromatase inhibitor when clinically improved # Acute respiratory failure: extubated 03/05. Now on 2 LPM -wean O2 as able # Volume overload - got 12L fluid with surgery. Diuresed 10L, wt back to baseline. -D/C Lasix # Hyponatremia - could be from Lasix, which is stopped today -send urine studies -fluid restrict, follow # Hypocalcemia: on protocol # h/o medullary thyroid ca s/p thyroidectomy #Hyperglycemia: bg's improved with increased insulin in tpn, now up to 30 units -change to SC Lantus 36 units hs -cont SSI #Fatty liver with increased LFT - mostly normalized. YAMILETH weakly positive, negative anti-smooth. -Liver bx showed steatosis, iron stain neg #Coagulopathy - elevated INR resistant to Vit K # Acute blood loss anemia: s/p 2 units 03/05, stable #Hypothyroid: cont synthroid #Depression: on high dose prozac, resumed 03/08 at 40 mg daily -up-titrate to home dose 60 mg daily soon #Obesity BMI 45 with SHAHIDA #DVT ppx: Lovenox #Disp: cont inpt, transfer to med/surg, Case d/w Dr. Jose Subjective: Pt in good spirits, eating cream of wheat with jam and butter. Denies urinary symptoms. Denies CP or SOB, mild cough. No fevers/chills. Pain controlled. She is moving, though slow to recover. Objective: Vital Signs Temp Pulse Resp BP Pulse Ox 36.6 C 80 21 H 124/52 H 94 03/10/18 08:00 03/10/18 08:00 03/10/18 08:00 03/10/18 08:00 03/10/18 08:00 Laboratory Results 03/10/18 04:45 03/10/18 04:45 03/09/18 03/10/18 03/11/18 05:59 05:59 05:59 Intake Total 3361 3302 Output Total 1895 2320 800 Balance 1466 982 -800 PT 17.6 SEC (12.0-15.0) H 03/08/18 05:20 INR 1.43 (0.83-1.16) H 03/08/18 05:20 - Physical Exam Constitutional: no apparent distress, obese Eyes: PERRL Ears, Nose, Mouth, Throat: moist mucous membranes Cardiovascular: regular rate and rhythym, no murmur, rub, or gallop Respiratory: no respiratory distress, other (bibasilar crackles, suspect atelectatic) Gastrointestinal: other (soft, obese, non-tender, +abdominal wound vac functioning well, +BS) Skin: warm Musculoskeletal: full muscle strength Neurologic: AAOx3 Psychiatric: interacting appropriately ICD10 Worksheet Patient Problems: Problems Problem Status Onset Ovarian cancer Acute Small bowel obstruction Acute
[2018-03-10] MEDS: ONDANSETRON DISINTEGRATING 4 MG TAB PO PRN (15:24)
--- NOTE | 2018-03-10 15:54 | PCMIDPN ---
Assessment/Plan: Assessment/Plan: * Small bowel obstruction status post laparotomy with multiple enterotomies: Continued clinical improvement. Completed 7 days of ertapenem and fluconazole. White blood cell count elevated today. Will continue to monitor off antibiotics. Repeat CBC in a.m.. If continues to have increasing white blood cell count likely will require CT scan of abdomen and pelvis to assess for abscess formation. * Fever: Resolved. 03/10/18 15:51 Subjective: Patient complains of passage of small amount diarrhea with urination. No dysuria present. No significant abdominal pain. Tolerating diet. Objective: Vital Signs Temp Pulse Resp BP Pulse Ox 36.6 C 80 21 H 124/52 H 94 03/10/18 08:00 03/10/18 08:00 03/10/18 08:00 03/10/18 08:00 03/10/18 08:00 Laboratory Results 03/10/18 04:45 03/10/18 04:45 03/09/18 03/10/18 03/11/18 05:59 05:59 05:59 Intake Total 3361 3302 Output Total 1895 2320 1200 Balance 1466 982 -1200 No antibiotic therapy Sputum 03/04/2018 no growth BAL 03/05/2018 no growth Chest x-ray with bilateral interstitial infiltrates - Physical Exam General Appearance: alert, no apparent distress EENT: No scleral icterus, No thrush, No dry mucous membranes Respiratory: lungs clear, No respiratory distress Cardiac/Chest: regular rate, rhythm Abdomen: non-tender, other (Wound VAC in place without surrounding erythema or drainage), No distended Skin: No rash - Line/s RUE PICC Lines: No drainage, No erythema ICD10 Worksheet Patient Problems: Problems Problem Status Onset Ovarian cancer Acute Small bowel obstruction Acute
[2018-03-10] MEDS ORDERED: INSULIN GLARGINE 100 UNITS/ML UNIT SC SCH (21:00)
[2018-03-10] MEDS: TPN W/ FAMOTIDINE 1 EA BAG IV SCH (21:15)
[2018-03-11] MEDS: INSULIN REGULAR, HUMAN 100 UNIT/1 ML VIAL HIGH SC SCH ×2 (00:17→05:37)
[2018-03-11] MEDS: OXYCODONE/APAP 5/325 TAB PO PRN ×2 (04:13→12:19)
[2018-03-11 04:50] LABS: PLATELET COUNT 587 10^3/uL (150-400)
[2018-03-11] MEDS: LEVOTHYROXINE 137 MCG TAB PO SCH (05:35)
[2018-03-11] MEDS: FLUoxetine 20 MG CAP PO SCH (08:52)
[2018-03-11] MEDS: NYSTATIN POWDER 15 GM BTL TP SCH ×2 (08:52→21:59)
[2018-03-11] MEDS: ENOXAPARIN 40 MG/0.4 ML SYR SC SCH ×2 (08:52→21:57)
[2018-03-11] MEDS: INSULIN LISPRO 100 UNIT/ML SC SCH ×3 (10:07→18:20)
--- NOTE | 2018-03-11 11:22 | PCMIDPN ---
Assessment/Plan: Assessment/Plan: * Small bowel obstruction status post laparotomy with multiple enterotomies: Progressive leukocytosis with concomitant thrombocytosis concerning for inflammatory process. Will proceed with CT scan of abdomen and pelvis to ensure no evidence of abscess formation although patient has continued to show signs of clinical improvement. Continue observation off antibiotics pending CT findings. 03/11/18 11:19 Subjective: Patient without significant abdominal pain. Notes soft stool x1 this a.m.. Objective: Vital Signs Temp Pulse Resp BP Pulse Ox 36.9 C 73 16 101/45 L 91 L 03/11/18 07:40 03/11/18 07:40 03/11/18 07:40 03/11/18 07:40 03/11/18 08:20 Laboratory Results 03/11/18 04:20 03/11/18 04:20 03/10/18 03/11/18 03/12/18 05:59 05:59 05:59 Intake Total 3302 2639 Output Total 2320 1460 Balance 982 1179 No antibiotic therapy - Physical Exam General Appearance: alert, no apparent distress, non-toxic EENT: No scleral icterus, No thrush Respiratory: lungs clear, No respiratory distress Cardiac/Chest: regular rate, rhythm Abdomen: non-tender, other (Wound VAC in place without surrounding erythema), No distended Skin: No rash - Line/s RUE PICC Lines: No drainage, No erythema - Time Spent With Patient Time Spent with Patient: greater than 25 minutes Time Spent with Patient: Greater than 25 minutes spent on this patients care, greater than 50% of time spent counseling, educating, and coordinating care regarding the above mentioned plan. ICD10 Worksheet Patient Problems: Problems Problem Status Onset Ovarian cancer Acute Small bowel obstruction Acute
--- NOTE | 2018-03-11 12:48 | SOAPPROG ---
SOAP Progress Note Assessment/Plan: Assessment: 62 Y F metastatic ovarian CA c bowel obstruction, s/p challenging laparotomy c enterocolostomy, partial colon resection with tumor debulking, friable bowel, liver biopsy, extensive adhesiolysis c friable bowel and multiple enterotomy repairs. Leukocytosis: CT abdomen today to evaluate for abscess, although unlikely given she is doing well clinically. S: Doing well overall. Passing gas and having BMs. Pain controlled. O: Alert Afebrile VSS, off pressors Hct stable Abdomen: soft, nontender, wound vac to suction : uop adequate 03/11/18 12:47 Objective: Vital Signs Temp Pulse Resp BP Pulse Ox 36.9 C 73 16 101/45 L 91 L 03/11/18 07:40 03/11/18 07:40 03/11/18 07:40 03/11/18 07:40 03/11/18 08:20 Laboratory Results 03/11/18 04:20 03/11/18 04:20 03/10/18 03/11/18 03/12/18 05:59 05:59 05:59 Intake Total 3302 2639 Output Total 2320 1460 Balance 982 1179 PT 17.6 SEC (12.0-15.0) H 03/08/18 05:20 INR 1.43 (0.83-1.16) H 03/08/18 05:20 ICD10 Worksheet Patient Problems: Problems Problem Status Onset Ovarian cancer Acute Small bowel obstruction Acute
[2018-03-11] MEDS ORDERED: IOPAMIDOL (ISOVUE-300) 100 ML BTL ONE (14:08)
--- NOTE | 2018-03-11 15:01 | SOAPPROG ---
SOAP Progress Note Assessment/Plan: 62 yo woman w metastatic granulosa cell ovarian ca s/p bowel obstruction now POD #10 from very complicated debulking surgery Pt doing relatively well Pain controlled wound vac in place start AI as outpt will follow as outpt w Dr Langley throbocytopenia resolved anemia multifactorial but some blood loss 03/11/18 15:01 Subjective: Pt seen yesterday doing well post op up in chair Objective: Vital Signs Temp Pulse Resp BP Pulse Ox 36.9 C 73 16 101/45 L 91 L 03/11/18 07:40 03/11/18 07:40 03/11/18 07:40 03/11/18 07:40 03/11/18 08:20 Laboratory Results 03/11/18 04:20 03/11/18 04:20 03/10/18 03/11/18 03/12/18 05:59 05:59 05:59 Intake Total 3302 2639 Output Total 2320 1460 Balance 982 1179 PT 17.6 SEC (12.0-15.0) H 03/08/18 05:20 INR 1.43 (0.83-1.16) H 03/08/18 05:20 Gen - fatigued Heart -rrr, LE edema Abd - obese, wound vac intact, BS+ ICD10 Worksheet Patient Problems: Problems Problem Status Onset Ovarian cancer Acute Small bowel obstruction Acute
--- NOTE | 2018-03-11 15:02 | HOSPPROG ---
Hospitalist Progress Note Assessment/Plan: 62 yo F w complex abdominal surgery history Small bowel obstruction: POD #9 from rt tuan-colectomy, tumor debulking, sm bowel resection, multiple enterotomies. abdominal wound vac, cont wound care advance diet per surg Peritonitis: S/P 1 week Invanz/Diflucan Leukocytosis: wbcs trending up, no fevers CXR ordered per surg, defer ua without symptoms low threshold for abd CT if worsens or develops fevers or increased pain trend 03/11- check cdiff Granulosa cell tumor: slow growing, indolent tumor. Intra-abdominal biopsies + granulosa cell tumor oncology following, plan for aromatase inhibitor when clinically improved Acute respiratory failure: extubated 03/05. Now on 2 LPM wean O2 as able Volume overload - got 12L fluid with surgery. Diuresed 10L, wt back to baseline. D/C Lasix Hyponatremia - could be from Lasix, which is stopped today send urine studies fluid restrict, follow Hypocalcemia: on protocol h/o medullary thyroid ca s/p thyroidectomy Hyperglycemia: bg's improved with increased insulin in tpn, now up to 30 units change to SC Lantus 36 units hs cont SSI Fatty liver with increased LFT - mostly normalized. YAMILETH weakly positive, negative anti-smooth. Liver bx showed steatosis, iron stain neg Coagulopathy - elevated INR resistant to Vit K Acute blood loss anemia: s/p 2 units 03/05, stable Hypothyroid: cont synthroid Depression: on high dose prozac, resumed 03/08 at 40 mg daily up-titrate to home dose 60 mg daily soon Obesity BMI 45 with SHAHIDA DVT ppx: Lovenox Subjective: case d/w dr palacios Objective: Vital Signs Temp Pulse Resp BP Pulse Ox 36.9 C 73 16 101/45 L 91 L 03/11/18 07:40 03/11/18 07:40 03/11/18 07:40 03/11/18 07:40 03/11/18 08:20 Laboratory Results 03/11/18 04:20 03/11/18 04:20 03/10/18 03/11/18 03/12/18 05:59 05:59 05:59 Intake Total 3302 2639 Output Total 2320 1460 Balance 982 1179 PT 17.6 SEC (12.0-15.0) H 11/26/18 05:20 INR 1.43 (0.83-1.16) H 03/08/18 05:20 - Physical Exam Constitutional: no apparent distress, appears nourished Eyes: PERRL, anicteric sclera Ears, Nose, Mouth, Throat: moist mucous membranes, hearing normal Cardiovascular: regular rate and rhythym, no murmur, rub, or gallop Respiratory: no respiratory distress, no rales or rhonchi Gastrointestinal: normoactive bowel sounds, soft, non-tender abdomen Genitourinary: no bladder fullness, No colon in urethra Skin: warm, normal color Musculoskeletal: full muscle strength Neurologic: AAOx3 ICD10 Worksheet Patient Problems: Problems Problem Status Onset Ovarian cancer Acute Small bowel obstruction Acute
[2018-03-11] MEDS: INSULIN GLARGINE 100 UNITS/ML UNIT SC SCH (21:57)
[2018-03-12] MEDS ORDERED: BENZONATATE 100 MG CAP PO PRN (00:44)
[2018-03-12] MEDS ORDERED: GUAIFENESIN/DM 10 ML UDCUP PO PRN (00:44)
[2018-03-12] MEDS: LEVOTHYROXINE 137 MCG TAB PO SCH (05:01)
[2018-03-12] MEDS: ONDANSETRON DISINTEGRATING 4 MG TAB PO PRN (08:16)
[2018-03-12 08:25] LABS: PLATELET COUNT 567 10^3/uL (150-400)
[2018-03-12] MEDS: PROMETHAZINE HCL 25 MG/ML INJ IVP PRN (09:18)
[2018-03-12] MEDS: FLUoxetine 20 MG CAP PO SCH (09:26)
[2018-03-12] MEDS: ENOXAPARIN 40 MG/0.4 ML SYR SC SCH ×2 (09:27→21:52)
[2018-03-12] MEDS: NYSTATIN POWDER 15 GM BTL TP SCH ×2 (09:28→21:51)
--- NOTE | 2018-03-12 10:34 | PCMIDPN ---
Assessment/Plan: Assessment: Leukocytosis given recent issues with enterotomies after surgery. Reviewed CT scan and no evidence of significant collection consistent with abscess. Will continue to observe off antibiotics. Patient informed. No questions. Plan: 1. Continue to observe off antibiotics. 03/12/18 15:35 Subjective: Patient resting in her hospital bed. Awakened and had a discussion about results of the CT scan. She has no new complaint. Objective: No antibiotics. Vital Signs Temp Pulse Resp BP Pulse Ox 36.6 C 81 14 100/65 91 L 03/12/18 08:49 03/12/18 08:49 03/12/18 08:49 03/12/18 08:49 03/12/18 08:49 Laboratory Results 03/12/18 08:00 03/12/18 05:00 03/11/18 03/12/18 03/13/18 05:59 05:59 05:59 Intake Total 2639 1257 150 Output Total 1460 50 Balance 1179 1207 150 - Physical Exam General Appearance: WD/WN, alert, obese, non-toxic Skin: normal color, warm/dry, No rash Neuro/Psych: alert, normal mood/affect, oriented x 3 ICD10 Worksheet Patient Problems: Problems Problem Status Onset Ovarian cancer Acute Small bowel obstruction Acute
[2018-03-12] MEDS: INSULIN LISPRO 100 UNIT/ML SC SCH ×3 (10:37→16:21)
[2018-03-12] MEDS: OXYCODONE/APAP 5/325 TAB PO PRN ×2 (14:29→23:34)
--- NOTE | 2018-03-12 15:23 | HOSPPROG ---
Hospitalist Progress Note Assessment/Plan: 62 yo F w complex abdominal surgery history Small bowel obstruction: POD #10 from rt tuan-colectomy, tumor debulking, sm bowel resection, multiple enterotomies. abdominal wound vac, cont wound care advance diet per surg Peritonitis: S/P 1 week Invanz/Diflucan Leukocytosis: wbcs trending up, no fevers CXR ordered per surg, defer ua without symptoms low threshold for abd CT if worsens or develops fevers or increased pain trend 03/12- down a bit ct w fluid collection, no clear abscess Granulosa cell tumor: slow growing, indolent tumor. Intra-abdominal biopsies + granulosa cell tumor oncology following, plan for aromatase inhibitor when clinically improved Acute respiratory failure: extubated 03/05. Now on 2 LPM wean O2 as able Volume overload - got 12L fluid with surgery. Diuresed 10L, wt back to baseline. D/C Lasix Hyponatremia - could be from Lasix, which is stopped today send urine studies fluid restrict, follow Hypocalcemia: on protocol h/o medullary thyroid ca s/p thyroidectomy Hyperglycemia: bg's improved with increased insulin in tpn, now up to 30 units change to SC Lantus 36 units hs cont SSI Fatty liver with increased LFT - mostly normalized. YAMILETH weakly positive, negative anti-smooth. Liver bx showed steatosis, iron stain neg Coagulopathy - elevated INR resistant to Vit K Acute blood loss anemia: s/p 2 units 03/05, stable Hypothyroid: cont synthroid Depression: on high dose prozac, resumed 03/08 at 40 mg daily up-titrate to home dose 60 mg daily soon Obesity BMI 45 with SHAIHDA DVT ppx: Lovenox Subjective: case d/w john méndez, gen surgery PA. ct w small fluid collection (images reviewed/interp by me) Objective: Vital Signs Temp Pulse Resp BP Pulse Ox 36.3 C 90 18 113/46 L 91 L 03/12/18 11:49 03/12/18 11:49 03/12/18 11:49 03/12/18 11:49 03/12/18 11:49 Laboratory Results 03/12/18 08:00 03/12/18 05:00 03/11/18 03/12/18 03/13/18 05:59 05:59 05:59 Intake Total 2639 1257 150 Output Total 1460 50 300 Balance 1179 1207 -150 PT 17.6 SEC (12.0-15.0) H 03/08/18 05:20 INR 1.43 (0.83-1.16) H 03/08/18 05:20 - Physical Exam Constitutional: no apparent distress, appears nourished Eyes: PERRL, anicteric sclera Ears, Nose, Mouth, Throat: moist mucous membranes, hearing normal Cardiovascular: regular rate and rhythym, no murmur, rub, or gallop Respiratory: no respiratory distress, no rales or rhonchi Gastrointestinal: normoactive bowel sounds, soft, non-tender abdomen, No guarding, No rebound Genitourinary: no bladder fullness, colon in urethra Skin: warm Musculoskeletal: full muscle strength Neurologic: AAOx3 ICD10 Worksheet Patient Problems: Problems Problem Status Onset Ovarian cancer Acute Small bowel obstruction Acute
--- NOTE | 2018-03-12 16:43 | ASMTCMCOM ---
CM Note CM Note Notes: Pt admitted for SBO and rt tuan-colectomy in the setting of ovarian cancer. Pt has abdominal wound vac. Spoke with pt's RN. PT and OT are recommending SNF v HHC however, Pt wants to go home with homecare with family supports. Pt has [employer] insurance. CM called and found [facility] ([phone], F [phone]) who can provide services to [place]. does not use [employer]. CM faxed pt information to them. Pt unlikely to discharge over the weekend. CM to follow. D/C Plan: Home with [facility], possibly with wound vac? Date Signed: 03/12/2018 04:42 PM Electronically Signed By:Kandy Barnes
--- NOTE | 2018-03-12 16:53 | SOAPPROG ---
ADEN Progress Note Assessment/Plan: Assessment: 62 Y F metastatic ovarian CA c bowel obstruction, s/p challenging laparotomy c enterocolostomy, partial colon resection with tumor debulking, friable bowel, liver biopsy, extensive adhesiolysis c friable bowel and multiple enterotomy repairs. Leukocytosis: Improved, but CT showed fluid collection, poss. abscess. S: Feels worse than yesterday. Increased abdominal discomfort O: Alert Afebrile VSS Abdomen: soft, nontender, wound vac taken down- wound is clean with healthy granulation throughout : uop adequate Plan: Will follow clinically. Reassuring that she is afebrile. Pt will need repeat CT to reevaluate fluid collection. Might need surgery to drain it. 03/12/18 16:49 Objective: Vital Signs Temp Pulse Resp BP Pulse Ox 36.3 C 90 18 113/46 L 91 L 03/12/18 11:49 03/12/18 11:49 03/12/18 11:49 03/12/18 11:49 03/12/18 11:49 Laboratory Results 03/12/18 08:00 03/12/18 05:00 03/11/18 03/12/18 03/13/18 05:59 05:59 05:59 Intake Total 2639 1257 740 Output Total 1460 50 550 Balance 1179 1207 190 PT 17.6 SEC (12.0-15.0) H 03/08/18 05:20 INR 1.43 (0.83-1.16) H 03/08/18 05:20 ICD10 Worksheet Patient Problems: Problems Problem Status Onset Ovarian cancer Acute Small bowel obstruction Acute
[2018-03-12] MEDS: INSULIN GLARGINE 100 UNITS/ML UNIT SC SCH (21:51)
[2018-03-13] MEDS: OXYCODONE/APAP 5/325 TAB PO PRN ×2 (05:06→15:08)
[2018-03-13] MEDS: LEVOTHYROXINE 137 MCG TAB PO SCH (05:06)
[2018-03-13] MEDS: INSULIN LISPRO 100 UNIT/ML SC SCH ×3 (08:24→16:50)
[2018-03-13] MEDS: ENOXAPARIN 40 MG/0.4 ML SYR SC SCH ×2 (08:45→21:11)
[2018-03-13] MEDS: NYSTATIN POWDER 15 GM BTL TP SCH ×2 (08:46→21:07)
[2018-03-13] MEDS: FLUoxetine 20 MG CAP PO SCH (08:46)
--- NOTE | 2018-03-13 10:53 | SOAPPROG ---
SOAP Progress Note Assessment/Plan: Assessment: 62 female with recurrent sbo 2/2 ovarian cancer recurrence comfortable, afebrile heent nonicteric chest cor rr abd distended, mildly tender, decreased bs, no hernias recurrent sbo/ risks and options fully discussed Plan:may need surgery despite etiolgy because of recurrence 02/27/18 18:54 02/28/18 17:25 SEEN BY MY NURSE PRACTITIONER LEVI LARA, PLEASE REFER TO HER NOTE STILL DISTENDED WITH OCCASIONAL PAIN AND NO FLATUS OR BOWEL MOVEMENTS/MINIMAL NG OUTPUT AND MILD NAUSEA WILL NEED EXPLORATORY LAP IN THE A.M. FOR RESOLUTION OF SMALL-BOWEL OBSTRUCTION WILL NEED A GASTROGRAFIN ENEMA 1ST TO RULE OUT COLONIC OBSTRUCTION FROM THE LARGE LEFT LOWER QUADRANT MASS RISKS AND OPTIONS BEEN FULLY DISCUSSED AND SHE WISHED TO PROCEED WITH SURGERY EVEN IF COLOSTOMY NECESSARY A 03/03/18 16:58 AMAZINGLY STABLE/WOUND VAC CHANGE TODAY AND WOUND DOING WELL/ABDOMEN SOFT WITH BOWEL SOUNDS/VITAL SIGNS STABLE/STILL ON VENT CHEST X-RAY SHOWS SOME CHF FINDINGS/HEMATOCRIT 23/WBC 9000 MINIMAL NG OUTPUT/MINIMAL WOUND VAC OUTPUT LOW-GRADE TEMP IMPRESSION: STABLE WITH THIS NEW MASSIVE SURGERY/SHE IS AT HIGH RISK FOR ABDOMINAL ABSCESS OR FISTULA OR RECURRENT OBSTRUCTION 03/13/18 10:51 AFEBRILE TODAY/FEELING MUCH BETTER/EATING/POSITIVE BOWEL MOVEMENT/WOUND VAC WORKING WBC DOWN TO 12 THOUSANDS/HEMATOCRIT STABLE OVERALL IMPROVING HOPEFULLY HOME IN 2-3 DAYS Objective: Vital Signs Temp Pulse Resp BP Pulse Ox 36.5 C 79 16 109/58 L 88 L 03/13/18 07:56 03/13/18 07:56 03/13/18 07:56 03/13/18 07:56 03/13/18 07:56 Laboratory Results 03/13/18 05:01 03/13/18 05:01 03/12/18 03/13/18 03/14/18 05:59 05:59 05:59 Intake Total 1257 820 Output Total 50 1000 Balance 1207 -180 PT 17.6 SEC (12.0-15.0) H 03/08/18 05:20 INR 1.43 (0.83-1.16) H 03/08/18 05:20 ICD10 Worksheet Patient Problems: Problems Problem Status Onset Ovarian cancer Acute Small bowel obstruction Acute
--- NOTE | 2018-03-13 13:57 | HOSPPROG ---
Hospitalist Progress Note Assessment/Plan: 62 yo F w complex abdominal surgery history Small bowel obstruction: POD #11 from rt tuan-colectomy, tumor debulking, sm bowel resection, multiple enterotomies. abdominal wound vac, cont wound care advance diet per surg Peritonitis: S/P 1 week Invanz/Diflucan Leukocytosis: wbcs trending up, no fevers CXR ordered per surg, defer ua without symptoms low threshold for abd CT if worsens or develops fevers or increased pain trend 03/12- down a bit ct w fluid collection, no clear abscess Granulosa cell tumor: slow growing, indolent tumor. Intra-abdominal biopsies + granulosa cell tumor oncology following, plan for aromatase inhibitor when clinically improved Acute respiratory failure: extubated 03/05. Now on 2 LPM wean O2 as able Volume overload - got 12L fluid with surgery. Diuresed 10L, wt back to baseline. D/C Lasix Hyponatremia - could be from Lasix, which is stopped today send urine studies fluid restrict, follow Hypocalcemia: on protocol h/o medullary thyroid ca s/p thyroidectomy Hyperglycemia:on lantus 18 hs w SS sugars largely at goal Fatty liver with increased LFT - mostly normalized. YAMILETH weakly positive, negative anti-smooth. Liver bx showed steatosis, iron stain neg Coagulopathy - elevated INR resistant to Vit K Acute blood loss anemia: s/p 2 units 03/05, stable Hypothyroid: cont synthroid Depression: on high dose prozac, resumed 03/08 at 40 mg daily up-titrate to home dose 60 mg daily soon Obesity BMI 45 with SHAHIDA DVT ppx: Lovenox Subjective: feels well Objective: Vital Signs Temp Pulse Resp BP Pulse Ox 36.6 C 80 16 107/65 93 03/13/18 12:00 03/13/18 12:00 03/13/18 12:00 03/13/18 12:00 03/13/18 12:00 Laboratory Results 03/13/18 05:01 03/13/18 05:01 03/12/18 03/13/18 03/14/18 05:59 05:59 05:59 Intake Total 1257 820 Output Total 50 1000 100 Balance 1207 -180 -100 PT 17.6 SEC (12.0-15.0) H 03/08/18 05:20 INR 1.43 (0.83-1.16) H 03/08/18 05:20 - Physical Exam Constitutional: no apparent distress, appears nourished Eyes: PERRL, anicteric sclera Ears, Nose, Mouth, Throat: moist mucous membranes, hearing normal Cardiovascular: regular rate and rhythym, no murmur, rub, or gallop Respiratory: no respiratory distress, no rales or rhonchi Gastrointestinal: normoactive bowel sounds, soft, non-tender abdomen Genitourinary: no bladder fullness, No colon in urethra Skin: warm, normal color Musculoskeletal: full muscle strength, no muscle tenderness Neurologic: AAOx3 ICD10 Worksheet Patient Problems: Problems Problem Status Onset Ovarian cancer Acute Small bowel obstruction Acute
[2018-03-13] MEDS ORDERED: ACETAMINOPHEN 325 MG TAB PO PRN (14:10)
[2018-03-13] MEDS: INSULIN GLARGINE 100 UNITS/ML UNIT SC SCH (21:15)
[2018-03-14] MEDS: OXYCODONE/APAP 5/325 TAB PO PRN ×3 (02:35→21:31)
[2018-03-14] MEDS: LEVOTHYROXINE 137 MCG TAB PO SCH (05:45)
[2018-03-14] MEDS: INSULIN LISPRO 100 UNIT/ML SC SCH ×3 (08:25→16:25)
[2018-03-14] MEDS: NYSTATIN POWDER 15 GM BTL TP SCH ×3 (09:25→20:56)
[2018-03-14] MEDS: ENOXAPARIN 40 MG/0.4 ML SYR SC SCH ×2 (10:10→20:55)
[2018-03-14] MEDS: FLUoxetine 20 MG CAP PO SCH (10:10)
[2018-03-14] MEDS: ONDANSETRON DISINTEGRATING 4 MG TAB PO PRN ×2 (12:41→21:31)
--- NOTE | 2018-03-14 14:58 | SOAPPROG ---
SOAP Progress Note Assessment/Plan: Assessment: 62 female with recurrent sbo 2/2 ovarian cancer recurrence comfortable, afebrile heent nonicteric chest cor rr abd distended, mildly tender, decreased bs, no hernias recurrent sbo/ risks and options fully discussed Plan:may need surgery despite etiolgy because of recurrence 02/27/18 18:54 02/28/18 17:25 SEEN BY MY NURSE PRACTITIONER LEVI LARA, PLEASE REFER TO HER NOTE STILL DISTENDED WITH OCCASIONAL PAIN AND NO FLATUS OR BOWEL MOVEMENTS/MINIMAL NG OUTPUT AND MILD NAUSEA WILL NEED EXPLORATORY LAP IN THE A.M. FOR RESOLUTION OF SMALL-BOWEL OBSTRUCTION WILL NEED A GASTROGRAFIN ENEMA 1ST TO RULE OUT COLONIC OBSTRUCTION FROM THE LARGE LEFT LOWER QUADRANT MASS RISKS AND OPTIONS BEEN FULLY DISCUSSED AND SHE WISHED TO PROCEED WITH SURGERY EVEN IF COLOSTOMY NECESSARY A 03/03/18 16:58 AMAZINGLY STABLE/WOUND VAC CHANGE TODAY AND WOUND DOING WELL/ABDOMEN SOFT WITH BOWEL SOUNDS/VITAL SIGNS STABLE/STILL ON VENT CHEST X-RAY SHOWS SOME CHF FINDINGS/HEMATOCRIT 23/WBC 9000 MINIMAL NG OUTPUT/MINIMAL WOUND VAC OUTPUT LOW-GRADE TEMP IMPRESSION: STABLE WITH THIS NEW MASSIVE SURGERY/SHE IS AT HIGH RISK FOR ABDOMINAL ABSCESS OR FISTULA OR RECURRENT OBSTRUCTION 03/13/18 10:51 AFEBRILE TODAY/FEELING MUCH BETTER/EATING/POSITIVE BOWEL MOVEMENT/WOUND VAC WORKING WBC DOWN TO 12 THOUSANDS/HEMATOCRIT STABLE OVERALL IMPROVING HOPEFULLY HOME IN 2-3 DAYS 03/14/18 14:56 CONTINUES TO IMPROVE/AFEBRILE/MINIMAL WOUND VAC OUTPUT/MINIMAL PAIN WBC 12 K/HEMATOCRIT 26 HEENT NONICTERIC CHEST CLEAR COR REGULAR RHYTHM ABDOMEN SOFT POSITIVE BOWEL SOUNDS AND WELL-HEALING MIDLINE GRANULATING WOUND/ LOTS OF FLATUS AND SOME BOWEL MOVEMENTS/EATING BETTER WILL WORK ON DISCHARGE IN THE NEXT 1-2 DAYS WITH HOME WOUND VAC Objective: Vital Signs Temp Pulse Resp BP Pulse Ox 36.8 C 82 16 108/43 L 96 03/14/18 11:07 03/14/18 11:07 03/14/18 11:07 03/14/18 11:07 03/14/18 11:07 Laboratory Results 03/13/18 05:01 03/13/18 05:01 03/13/18 03/14/18 03/15/18 05:59 05:59 05:59 Intake Total 820 1210 300 Output Total 1000 200 150 Balance -180 1010 150 PT 17.6 SEC (12.0-15.0) H 03/08/18 05:20 INR 1.43 (0.83-1.16) H 03/08/18 05:20 ICD10 Worksheet Patient Problems: Problems Problem Status Onset Ovarian cancer Acute Small bowel obstruction Acute
--- NOTE | 2018-03-14 15:22 | HOSPPROG ---
Hospitalist Progress Note Assessment/Plan: 62 yo F w complex abdominal surgery history Small bowel obstruction: POD #12 from rt tuan-colectomy, tumor debulking, sm bowel resection, multiple enterotomies. abdominal wound vac, cont wound care advance diet per surg Peritonitis: S/P 1 week Invanz/Diflucan Leukocytosis: wbcs trending up, no fevers CXR ordered per surg, defer ua without symptoms low threshold for abd CT if worsens or develops fevers or increased pain trend 03/12- down a bit ct w fluid collection, no clear abscess Granulosa cell tumor: slow growing, indolent tumor. Intra-abdominal biopsies + granulosa cell tumor oncology following, plan for aromatase inhibitor when clinically improved Acute respiratory failure: extubated 03/05. Now on 2 LPM wean O2 as able Volume overload - got 12L fluid with surgery. Diuresed 10L, wt back to baseline. D/C Lasix Hyponatremia - could be from Lasix, which is stopped today send urine studies fluid restrict, follow Hypocalcemia: on protocol h/o medullary thyroid ca s/p thyroidectomy Hyperglycemia:on lantus 18 hs w SS sugars largely at goal does have h/o DM will dc OFF insulin, outpt follow up w dr richard Fatty liver with increased LFT - mostly normalized. YAMILETH weakly positive, negative anti-smooth. Liver bx showed steatosis, iron stain neg Coagulopathy - elevated INR resistant to Vit K Acute blood loss anemia: s/p 2 units 03/05, stable Hypothyroid: cont synthroid Depression: on high dose prozac, resumed 03/08 at 40 mg daily up-titrate to home dose 60 mg daily soon Obesity BMI 45 with SHAHIDA DVT ppx: Lovenox Subjective: soem diarrhea Objective: Vital Signs Temp Pulse Resp BP Pulse Ox 36.4 C 81 16 89/60 L 96 03/14/18 15:04 03/14/18 15:04 03/14/18 15:04 03/14/18 15:04 03/14/18 15:04 Laboratory Results 03/13/18 05:01 03/13/18 05:01 03/13/18 03/14/18 03/15/18 05:59 05:59 05:59 Intake Total 820 1210 300 Output Total 1000 200 150 Balance -180 1010 150 PT 17.6 SEC (12.0-15.0) H 03/08/18 05:20 INR 1.43 (0.83-1.16) H 03/08/18 05:20 - Physical Exam Constitutional: no apparent distress, appears nourished Eyes: PERRL, anicteric sclera Ears, Nose, Mouth, Throat: moist mucous membranes, hearing normal Cardiovascular: regular rate and rhythym, no murmur, rub, or gallop Respiratory: no respiratory distress, no rales or rhonchi Gastrointestinal: normoactive bowel sounds, soft, non-tender abdomen, No guarding, No rebound Genitourinary: no bladder fullness, No colon in urethra Skin: warm, normal color Musculoskeletal: full muscle strength Neurologic: AAOx3 ICD10 Worksheet Patient Problems: Problems Problem Status Onset Ovarian cancer Acute Small bowel obstruction Acute
[2018-03-14] MEDS: INSULIN GLARGINE 100 UNITS/ML UNIT SC SCH (21:31)
[2018-03-15] MEDS: OXYCODONE/APAP 5/325 TAB PO PRN ×3 (06:22→18:53)
[2018-03-15] MEDS: LEVOTHYROXINE 137 MCG TAB PO SCH (06:22)
[2018-03-15 07:04] LABS: PLATELET COUNT 590 10^3/uL (150-400)
[2018-03-15 07:06] LABS: INR 1.31 (0.83-1.16); PROTIME(PATIENT) 16.5 SEC (12.0-15.0)
[2018-03-15] MEDS: FLUoxetine 20 MG CAP PO SCH (09:04)
[2018-03-15] MEDS: ENOXAPARIN 40 MG/0.4 ML SYR SC SCH ×2 (09:04→21:48)
[2018-03-15] MEDS: INSULIN LISPRO 100 UNIT/ML SC SCH ×3 (09:23→17:22)
[2018-03-15] MEDS: NYSTATIN POWDER 15 GM BTL TP SCH ×2 (09:24→21:52)
--- NOTE | 2018-03-15 10:12 | SOAPPROG ---
SOAP Progress Note Assessment/Plan: Assessment/Plan: 62 Y F metastatic ovarian CA c bowel obstruction, s/p challenging laparotomy c enterocolostomy, partial colon resection with tumor debulking, friable bowel, liver biopsy, extensive adhesiolysis c friable bowel and multiple enterotomy repairs. Seen and examined with Dr. Mata. Doing quite well. Does still have metastatic disease. Changed wound vac today. Excellent granulation, but three areas of tunneling addressed. Begin arrangements for home vac. Nursing already arranged. Patient is still at risk for development of abscess/infection, but could go home with close outpatient follow up once vac arranged. S: eating, sitting up in chair, moves well to bed. denies fever. O: alert, nad mmm chest clear, no wob rrr abd soft, wound clean c granulation, three areas of tunneling--serous fluid released and vac now packed into those areas. 03/15/18 10:09 Objective: Vital Signs Temp Pulse Resp BP Pulse Ox 36.6 C 77 16 116/56 L 94 03/15/18 07:59 03/15/18 07:59 03/15/18 07:59 03/15/18 07:59 03/15/18 07:59 Microbiology 03/14/18 16:55 Gastrointestinal Tract Panel (PCR) - Final Stool No Organism Detected By Pcr Laboratory Results 03/15/18 06:20 03/15/18 06:20 03/14/18 03/15/18 03/16/18 05:59 05:59 05:59 Intake Total 1210 1050 Output Total 200 575 Balance 1010 475 PT 16.5 SEC (12.0-15.0) H 03/15/18 06:20 INR 1.31 (0.83-1.16) H 03/15/18 06:20 ICD10 Worksheet Patient Problems: Problems Problem Status Onset Ovarian cancer Acute Small bowel obstruction Acute
--- NOTE | 2018-03-15 12:41 | ASMTCMCOM ---
CM Note CM Note Notes: Plan of care discussed with Mable CARDENAS form surgical services. Orders for wound vac obtained and sent to Michelle at [facility]. Patient is set up to have [facility] upon discharge. Plan: Home with [facility] and wound vac when medically cleared for discharge to home. Date Signed: 03/15/2018 12:41 PM Electronically Signed By:Ekaterina Baker RN
--- NOTE | 2018-03-15 13:34 | HOSPPROG ---
Hospitalist Progress Note Assessment/Plan: 62 yo F w complex abdominal surgery history anemia: not clearly bleeding give 2 units Small bowel obstruction: POD #12 from rt tuan-colectomy, tumor debulking, sm bowel resection, multiple enterotomies. abdominal wound vac, cont wound care advance diet per surg Peritonitis: S/P 1 week Invanz/Diflucan Leukocytosis: wbcs trending up, no fevers CXR ordered per surg, defer ua without symptoms low threshold for abd CT if worsens or develops fevers or increased pain trend 03/12- down a bit ct w fluid collection, no clear abscess Granulosa cell tumor: slow growing, indolent tumor. Intra-abdominal biopsies + granulosa cell tumor oncology following, plan for aromatase inhibitor when clinically improved Acute respiratory failure: extubated 03/05. Now on 2 LPM wean O2 as able Volume overload - got 12L fluid with surgery. Diuresed 10L, wt back to baseline. D/C Lasix Hyponatremia - could be from Lasix, which is stopped today send urine studies fluid restrict, follow Hypocalcemia: on protocol h/o medullary thyroid ca s/p thyroidectomy Hyperglycemia:on lantus 18 hs w SS sugars largely at goal does have h/o DM will dc OFF insulin, outpt follow up w dr richard Fatty liver with increased LFT - mostly normalized. YAMILETH weakly positive, negative anti-smooth. Liver bx showed steatosis, iron stain neg Coagulopathy - elevated INR resistant to Vit K Acute blood loss anemia: s/p 2 units 03/05, stable Hypothyroid: cont synthroid Depression: on high dose prozac, resumed 03/08 at 40 mg daily up-titrate to home dose 60 mg daily soon Obesity BMI 45 with SHAHIDA DVT ppx: Lovenox Subjective: case discussed w connie arshad, dr hampton [place]. diarrhea decreasing. not black Objective: Vital Signs Temp Pulse Resp BP Pulse Ox 36.6 C 77 16 116/56 L 94 03/15/18 07:59 03/15/18 07:59 03/15/18 07:59 03/15/18 07:59 03/15/18 07:59 Microbiology 03/14/18 16:55 Gastrointestinal Tract Panel (PCR) - Final Stool No Organism Detected By Pcr Laboratory Results 03/15/18 06:20 03/15/18 06:20 03/14/18 03/15/18 03/16/18 05:59 05:59 05:59 Intake Total 1210 1050 Output Total 200 575 150 Balance 1010 475 -150 PT 16.5 SEC (12.0-15.0) H 03/15/18 06:20 INR 1.31 (0.83-1.16) H 03/15/18 06:20 - Physical Exam Constitutional: no apparent distress, appears nourished Eyes: PERRL, anicteric sclera Ears, Nose, Mouth, Throat: moist mucous membranes, hearing normal Cardiovascular: regular rate and rhythym, no murmur, rub, or gallop Respiratory: no respiratory distress, no rales or rhonchi Gastrointestinal: normoactive bowel sounds, soft, non-tender abdomen, other ( wound vac) Genitourinary: no bladder fullness, colon in urethra Skin: warm, normal color Musculoskeletal: full muscle strength, no muscle tenderness Neurologic: AAOx3 ICD10 Worksheet Patient Problems: Problems Problem Status Onset Ovarian cancer Acute Small bowel obstruction Acute
[2018-03-15] MEDS: INSULIN GLARGINE 100 UNITS/ML UNIT SC SCH (21:48)
[2018-03-16] MEDS: ONDANSETRON DISINTEGRATING 4 MG TAB PO PRN ×2 (05:29→12:31)
[2018-03-16] MEDS: LEVOTHYROXINE 137 MCG TAB PO SCH (05:29)
[2018-03-16] MEDS: INSULIN LISPRO 100 UNIT/ML SC SCH (09:52)
[2018-03-16 09:55] VITALS: BP 93/50
--- NOTE | 2018-03-16 10:01 | PDIAF ---
- Diagnosis Diagnosis: SBO, peritonitis, wound vac Code Status: Full Code - Medication Management Discharge Medications: electronically signed and located in the Home Medication List. PICC Care - Routine: N/A - Orders Services needed: Home Care, Registered Nurse, Physical Therapy, Occupational Therapy Home Care Face to Face: I certify that this patient was under my care and that I had the required [id number] encounter meeting the encounter requirements on the discharge day. My findings support the fact that the patient is homebound as defined in Home Care Face to Face Continued: CMS Chapter 7 Medicare Benefits Manual 30.1.1 , The condition of the patient is such that there exists a normal inability to leave home and consequently, leaving home would require a considerable and taxing effort. Diet Recommendation: no restrictions on diet Wound Care Instructions: wound vac per RN - Follow Up Care Current Providers and Referrals: Monica Shultz MD [Primary Care Provider] - Sebastian Mata MD [Medical Doctor] - Reji Langley MD [Medical Doctor] -
[2018-03-16] MEDS: FLUoxetine 20 MG CAP PO SCH (10:20)
[2018-03-16] MEDS: ENOXAPARIN 40 MG/0.4 ML SYR SC SCH (10:20)
[2018-03-16] MEDS: OXYCODONE/APAP 5/325 TAB PO PRN (10:28)
--- NOTE | 2018-03-16 12:19 | ASMTCMCOM ---
CM Note CM Note Notes: Patient plan of care reviewed in rounds. Wound vac delivered to patient and signed paperwork faxed to [facility]. Call to [facility] and orders faxed. Waiting on acceptance as they had not received official referral. Call to [facility] regarding availability. Awaiting return call. Patient will require audio installer, PT and OT. CM to follow. Plan: Dc to home with [facility]. Date Signed: 03/16/2018 12:17 PM Electronically Signed By:Ekaterina Baker RN
--- NOTE | 2018-03-16 12:20 | ASMTCMCOM ---
CM Note CM Note Notes: [facility] able to accept. Face sheet and H&P faxed to [facility]. Plan: Home with [facility] Date Signed: 03/16/2018 12:19 PM Electronically Signed By:Ekaterina Baker RN
--- NOTE | 2018-03-16 12:20 | ASMTLACE ---
LACE Length of stay for Answers: 14 days or more current admission Acuity / Level of Answers: Yes Care: Did the patient have an inpatient admission? Comorbidities - select Answers: Any tumor (including all that apply lymphoma or leukemia) Other Notes: SHAHIDA # of Emergency department Answers: 1-2 visits in the last 6 months Social determinants Answers: Mental health diagnosis (anxiety, depression, pers onality disorders, etc.) Score: 17 Date Signed: 03/16/2018 12:20 PM Electronically Signed By:Ekaterina Baker RN
[2018-03-16] MEDS: NYSTATIN POWDER 15 GM BTL TP SCH (12:53)
--- NOTE | 2018-03-18 12:23 | ASDISCHSUM ---
Discharge Information Plan Status:Home with Home Health Medically Cleared to Leave: Discharge Date:03/16/2018 01:23 PM CM D/C Disposition:Home Health Service ADT D/C Disposition:Home Health Service Projected Discharge Date:03/16/2018 11:00 AM Transportation at D/C: Discharge Delay Reason: Follow-Up Date:03/16/2018 11:00 AM Discharge Slot: Final Diagnosis: Placement Information Referral Type:Palliative Care Referral ID:[id number] Provider Name: Address 1: Phone Number: Address 2: Fax Number: City: Selection Factors: State: Patient Contact Information Contact Name:ASHOK Relationship: Address:[address] City:[place] Alternate Phone: State/Zip Code:[place] [address] Email: Financial Information Financial Class:HMO and PPO Plans Primary Plan Desc:MENDY PPO POS HMO Primary Plan Number:[id number] Secondary Plan Desc: Secondary Plan Number: Assessment Information LACE LACE Length of stay for Answers: 14 days or more current admission Acuity / Level of Answers: Yes Care: Did the patient have an inpatient admission? Comorbidities - select Answers: Any tumor (including all that apply lymphoma or leukemia) Other Notes: SHAHIDA # of Emergency department Answers: 1-2 visits in the last 6 months Social determinants Answers: Mental health diagnosis (anxiety, depression, pers onality disorders, etc.) Score: 17 Date Signed: 03/16/2018 12:20 PM Electronically Signed By:Ekaterina Baker RN [facility] CM Progress Note CM Note CM Note Notes: Pt has been admitted with SBO 2/2 her dx of ovarian CA. She is currently receiving conservative treatment with IVF and has an NGT. She has a hx of depression. She lives in [place] with her . CM will follow for any d/c needs. Date Signed: 02/27/2018 10:25 AM Electronically Signed By:GEOVANNY Martinez [facility] CM Progress Note CM Note CM Note Notes: Plan of care reviewed in rounds. Patient with Ovarian cancer presenting with SBO to undergo surgery with Dr. Mata today. Likely to benefit from palliative care consult when stable after surgery. Needs TBD at this time. CM to follow. Plan: TBD Date Signed: 03/01/2018 12:58 PM Electronically Signed By:Ekaterina Baker RN [facility] CM Progress Note CM Note CM Note Notes: Patient remains intubated and sedated, so PT is on hold for today. Patient has wound vac. Continue IV ABX and antifungal. Palliative care to meet with patient and her when appropriate. D/C plan TBD. CM will follow. Date Signed: 03/03/2018 11:35 AM Electronically Signed By:Sivan Cardozo LCSW [facility] CM Progress Note CM Note CM Note Notes: Patient was extubated today and is on 6L 02. Patient remains a full code. Patient did wake up and told the nurse she wanted her family here.Several members have been to visit today.D/C plan remains TBD. CM will follow. Date Signed: 03/05/2018 04:24 PM Electronically Signed By:Sivan Cardozo LCSW [facility] Progress Note CM Note CM Note Notes: Patient progress discussed in rounds. Pt continues to progress in therapies. Pt recommends HHC vs. SNF. CM to follow. Date Signed: 03/09/2018 09:00 AM Electronically Signed By:SEBASTIEN Johnson [facility] Progress Note CM Note CM Note Notes: CM met with pt and family. Pt wants to go home with homecare with family supports. Pt has [employer] insurance. CM called and found [facility] ([phone], F [phone]) who can provide services to [place]. does not use [employer]. CM faxed pt information to them. CM to follow. Date Signed: 03/09/2018 02:00 PM Electronically Signed By:SEBASTIEN Johnson [facility] CM Progress Note CM Note CM Note Notes: Pt admitted for SBO and rt tuan-colectomy in the setting of ovarian cancer. Pt has abdominal wound vac. Spoke with pt's RN. PT and OT are recommending SNF v HHC however, Pt wants to go home with homecare with family supports. Pt has [employer] insurance. CM called and found [facility] ([phone], F [phone]) who can provide services to Yvonne. [facility] does not use [employer]. CM faxed pt information to them. Pt unlikely to discharge over the weekend. CM to follow. D/C Plan: Home with [facility], possibly with wound vac? Date Signed: 03/12/2018 04:42 PM Electronically Signed By:Kandy Barnes [facility] CM Progress Note CM Note CM Note Notes: Plan of care discussed with Mable CARDENAS form surgical services. Orders for wound vac obtained and sent to Michelle at [facility]. Patient is set up to have [facility] upon discharge. Plan: Home with HHC and wound vac when medically cleared for discharge to home. Date Signed: 03/15/2018 12:41 PM Electronically Signed By:Ekaterina Baker RN [facility] CM Progress Note CM Note CM Note Notes: Patient plan of care reviewed in rounds. Wound vac delivered to patient and signed paperwork faxed to [facility]. Call to [facility] and orders faxed. Waiting on acceptance as they had not received official referral. Call to [facility] regarding availability. Awaiting return call. Patient will require diamond sander, PT and OT. CM to follow. Plan: Dc to home with [facility]. Date Signed: 03/16/2018 12:17 PM Electronically Signed By:Ekaterina Baker RN [facility] CM Progress Note CM Note CM Note Notes: [facility] able to accept. Face sheet and H&P faxed to [facility]. Plan: Home with [facility] Date Signed: 03/16/2018 12:19 PM Electronically Signed By:Ekaterina Baker RN Case Management Discharge Plan Note Case Management Discharge Discharge Order Complete? Answers: Yes Patient to Obtain Answers: via Family Medications Transportation Arranged Answers: Family/Friends Faxed Final Orders Answers: Yes Notes: [facility] Family Notified Answers: Yes Discharge Comments Notes: To dc home with [facility] Intervention Information
--- NOTE | 2018-03-20 07:07 | GDS ---
DISCHARGE DIAGNOSES: 1. Small bowel obstruction, status post right hemicolectomy with tumor debulking and small bowel res ection. 2. Peritonitis, status post 1 week of Invanz and Diflucan. 3. Granulosa cell tumor. 4. Acute respiratory failure, resolved. 5. Volume overload, resolved. 6. Hyponatremia resolved. 7. Hyperglycemia requiring insulin with an A1c of 6.4. 8. Severe obesity. CONSULTANTS: 1. Dr. Barrie Mata, general surgery. 2. Dr. Alba Cuevas, oncology. 3. Dr. Crescencio Andrea, pulmonology. 4. Dr. Reji Vega, infectious disease. PROCEDURES: 1. Laparotomy with right hemicolectomy, tumor debulking with partial colectomy, small bowel resectio n, and multiple enterotomy repairs with extensive lysis of adhesions as well as a liver biopsy perfor med by Dr. Barrie Mata March 01, 2018. Intraabdominal biopsies were positive for metastatic gra nulosa cell tumor in the abdominal wall right colon segment, small bowel segment, and a tumor in the left lower quadrant. Liver biopsy showed severe steatosis with mild triaditis. 2. PICC line insertion March 02, 2018. 3. Therapeutic bronchoscopy March 05, 2018, by Dr. Crescencio Andrea showed only modest secretions. HISTORY: For details please see the dictated history and physical dated February 26, 2018. In brief , the patient is a 62-year-old female with history of metastatic ovarian cancer diagnosed over 10 yea rs ago who presented to the emergency department with abdominal pain, nausea, and vomiting. She was found to have a small bowel obstruction thought to be secondary to her ovarian cancer. She was admit william to the hospital for further management. HOSPITAL COURSE: Patient was admitted to the med/surg unit. She was initially managed conservativel y though surgery consult was obtained. She ultimately required operative intervention, the details o f which are described above. She was treated for peritonitis with a week of antibiotics with Invanz and Diflucan. She required intensive care postoperatively due to ongoing respiratory failure and pro longed ventilatory support. She underwent bronchoscopy as described above and ultimately was extubat ed and weaned off oxygen with her sats 97% on room air on the day of discharge. She did have a slow recovery but continued to make progress. She was followed by Infectious Disease throughout the hospi talization as well as Pulmonology and Surgery. She required TPN, but did have return of bowel functi on. Was tolerating a full diet by the time of discharge. Oncology also consulted, and she will plan for outpatient followup with her primary oncologist. There was some discussion of initiating aromat ase inhibitor for ongoing therapy for her granulosa cell tumor. She also had marked hyperglycemia po stoperatively. This was thought likely to be a stress hyperglycemia. Her A1c was 6.4. She did requ byron significant insulin dosing during her hospitalization, but her blood sugars improved by the time of discharge and in fact, she was discharged home on metformin rather than insulin. It was recommend ed she follow up with Endocrinology. DISPOSITION: Patient was discharged home in stable condition with home health services plan. She di d have a wound VAC placed postoperatively and home wound VAC supplies were provided prior to discharg e. She will have home health RN assist her in management with this. FOLLOWUP: 1. Dr. Barrie Mata, general surgery. 2. Dr. Evelin Tuttle, endocrinology. 3. Dr. Reji Langley, oncology. 4. Dr. Monica Shultz, primary care. DISCHARGE MEDICATIONS: Please see [facility] for completed outpatient medication list. New medication s on discharge include: Metformin 500 mg p.o. twice daily #60, no refills. Continue p.r.n. [place]. Levothyroxine, vitamin D2, and Prozac as previously prescribed. /[id number]/MODL
== END 2018-03-16 13:23 | disposition home health service (06) | DRG 329 ==
LOC: F1N 15:18 → F2N 03-01 22:53 → F1N 03-11 18:37
PROVIDERS: ADMIT Internal Medicine; ATTEND Hospitalist
DX: C78.6 Secondary malignant neoplasm of retroperitoneum and peritoneum (principal); C79.89 Secondary malignant neoplasm of other specified sites; K56.691 Other complete intestinal obstruction; K56.52 Intestinal adhesions [bands] with complete obstruction; Z85.43 Personal history of malignant neoplasm of ovary; D62 Acute posthemorrhagic anemia; K91.71 Accidental puncture and laceration of a digestive system organ or structure during a digestive system procedure; K91.81 Other intraoperative complications of digestive system; K55.011 Focal (segmental) acute (reversible) ischemia of small intestine; J95.821 Acute postprocedural respiratory failure; T81.43XA Infection following a procedure, organ and space surgical site, initial encounter; E87.79 Other fluid overload; E87.1 Hypo-osmolality and hyponatremia; D68.8 Other specified coagulation defects; D69.59 Other secondary thrombocytopenia; R73.9 Hyperglycemia, unspecified; E83.51 Hypocalcemia; E83.42 Hypomagnesemia; R74.0 Nonspecific elevation of levels of transaminase and lactic acid dehydrogenase [LDH]; K76.0 Fatty (change of) liver, not elsewhere classified; E66.09 Other obesity due to excess calories; Z68.42 Body mass index [BMI] 45.0-49.9, adult; G47.33 Obstructive sleep apnea (adult) (pediatric); F32.9 Major depressive disorder, single episode, unspecified; E89.0 Postprocedural hypothyroidism; Z85.850 Personal history of malignant neoplasm of thyroid; E55.9 Vitamin D deficiency, unspecified; Z87.891 Personal history of nicotine dependence
CPT/HCPCS: 82308-90; 82435-PO; 82565-PO; 82947-PO; 82947-QW; 83605-PO; 84132-PO; 84295-PO; 84520-PO; 85014-PO; 86255-90; 86376-90; 97110-GP; 97116-GP; 97161-GP; 97164-GP; 97166-GO; 97530-GO; 97530-GP; 97535-GO; C1751; G0472; G0480; J0330; J0610; J0694; J1100; J1170; J1335; J1450; J1650; J1815; J1940; J2060; J2250; J2370; J2405; J2550; J2704; J2997; J3010; J3430; J3475; J3480; P9016; P9017; P9041; P9047; Q9967

== ENCOUNTER 2018-04-10 15:57 | Emergency (ER) | payer OTHER ==
[2018-04-10] MEDS ORDERED: NS 1,000 ML IV ONE ×2 (16:36→17:05)
[2018-04-10 16:56] LABS: PLATELET COUNT 367 10^3/uL (150-400)
--- NOTE | 2018-04-10 16:59 | EDPHY ---
H & P Stated Complaint: diarrhea, unable to urinate since yesterday, headache, nausea Time Seen by Provider: 04/10/18 16:59 - Personal History Current Tetanus/Diphtheria Vaccine: Unsure - Medical/Surgical History Hx Asthma: No Hx Chronic Respiratory Disease: No Hx Diabetes: No Hx Cardiac Disease: No Hx Renal Disease: No Hx Cirrhosis: No Hx Alcoholism: No Hx HIV/AIDS: No Hx Splenectomy or Spleen Trauma: No Other PMH: Ovarian ca, thyroid ca, hyperglycemia, TUMOR REMOVAL SX; thyroidectomy, sbo, Vitamin D deficiency - Social History Smoking Status: Former smoker Constitutional: Initial Vital Signs Temperature (C) 36.7 C 04/10/18 16:06 Heart Rate 95 04/10/18 16:06 Respiratory Rate 18 04/10/18 16:06 Blood Pressure 159/76 H 04/10/18 16:06 O2 Sat (%) 96 04/10/18 16:06 O2 Delivery Mode Room Air O2 (L/minute) 2 Allergies/Adverse Reactions: No Known Allergies Allergy (Verified 04/10/18 16:09) Home Medications: Medication Instructions Recorded Ergocalciferol [Vitamin D2 (*)] 50,000 unit PO FR 06/28/17 FLUoxetine [Prozac 20 MG (*)] 60 mg PO DAILY 06/28/17 Hydrocodone/Acetaminophen [[place] 1 tab PO PRN PRN 06/28/17 5/325 (*)] Levothyroxine [Synthroid 137 mcg 137 mcg PO DAILY06 06/28/17 (*)] metFORMIN HCL [Metformin HCl] 500 mg PO BID #60 tablet 03/16/18 Anastrozole 04/10/18 Potassium Chloride 04/10/18 Zofran 04/10/18 Medical Decision Making - Diagnostics Imaging Results: Imaging Impressions Abdomen CT 04/10/18 17:05 Impression: 1. No bowel obstruction or evidence of acute enteritis or colitis. 2. Chronically compressed and deformed urinary bladder by pelvic masses. No CT evidence of acute cystitis or urinary obstruction. 3. Markedly improved fluid collections since five weeks prior. The left paracolic fluid collection has completely resolved and the low right paramedian pelvic fluid collection has dramatically decreased. 4. Mixed response to therapy. Several of the implants have decreased in size; however, solid pelvic mass in the right hemipelvis has minimally increased and a new cystic implant along the liver has developed. Findings discussed with emergency department physician, Aiden Caldwell MD on April 10, 2018 at 1815 hours. Imaging: Discussed imaging studies w/ on call Radiologist ED Course/Re-evaluation: CHIEF COMPLAINT: Diarrhea, inability to urinate. 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 She has been admitted for these, most recently 02/11/18. She had a surgical resection following one of these episodes. Today, she presents following seven episodes of diarrhea. She additionally notes she has not been able to urinate since yesterday. She has abdominal cramping immediately after trying any PO fluids and has not been able to tolerate much hydration today. She endorses headache and some nausea. No dysuria or hematuria. No vomiting. No blood in her stool. She denies chest pain, shortness of breath, fever, or other associated symptoms. REVIEW OF SYSTEMS: A comprehensive 10 system review of systems is otherwise negative aside from elements mentioned in the history of present illness and medical decision making. PHYSICAL EXAM: HR, BP, O2 Sat, RR. Temp noted General Appearance: Alert, well hydrated, appropriate, and non-toxic appearing. Head: Atraumatic without scalp tenderness or obvious injury Eyes: Pupils equal, round, reactive to light and accommodation, EOMI, no trauma , no injection. Ears: Clear bilaterally, no perforation, normal landmarks Nose: Atraumatic, no rhinorrhea, clear. Throat: There is no erythema or exudates, no lesions, normal tonsils, mucus membranes moist. Neck: Supple, 2+ carotid upstroke, nontender, no lymphadenopathy. Respiratory: No retractions, no distress, no wheezes, and no accessory muscle use. Lungs are clear to auscultation bilaterally. Cardiovascular: Regular rate and rhythm, no murmurs, rubs, or gallops. Bilateral carotid, radial, dorsalis pedis, and posterior tibial pulses intact. Good capillary refill all extremities. Gastrointestinal: Abdomen is soft, nontender, non-distended, no masses, no rebound, no guarding, no peritoneal signs. Musculoskeletal: Normal active ROM of all extremities, atraumatic. Neurological: Alert, appropriate, and interactive. The patient has normal DTRs and non-focal cranial nerves, motor, sensory, and cerebellar exam. Skin: No rashes, good turgor, no nodules on palpation. Past medical history: Metastatic ovarian cancer, recurrent SBOs. Past surgical history: Ovarian cancer Family history: Noncontributory Social history: , not employed, does not abuse tobacco drugs and alcohol DIFFERENTIAL DIAGNOSIS: The differential diagnosis for the patient's abdominal pain included but was not limited to small bowel obstruction, gastroenteritis, metastatic disease, urinary tract infection, cholecystitis, and appendicitis. MEDICAL DECISION [id number] y/o female with history of SBOs secondary to metastatic ovarian cancer presents with abdominal pain, diarrhea, and inability to urinate. Plan for labs including CBC, chemistries, liver, lipase, i-stat. Plan for CT abdomen/pelvis. Plan to administer 1mg IV Dilaudid, 4mg IV Zofran, and 2L IV NS for symptom relief. 18:[address] Cao, radiologist. CT abdomen/pelvis shows no bowel obstruction or evidence of acute enteritis or colitis. Chronically compressed and deformed urinary bladder by pelvic masses. No CT evidence of acute cystitis or urinary obstruction. Otherwise largely stable. Laboratory studies largely unremarkable. UA negative for UTI. Reassessed patient. Discussed imaging results. CT largely stable. Plan to discharge home in good condition. Follow up and return precautions discussed. The patient is comfortable with this plan. - Data Points Laboratory Results: Laboratory Results 04/10/18 16:35 04/10/18 16:35 04/10/18 04/10/18 04/10/18 18:44 16:35 16:35 WBC RBC Hgb Hct MCV MCH MCHC RDW Plt Count MPV Neut % (Auto) Lymph % (Auto) [place] % (Auto) Eos % (Auto) Baso % (Auto) Nucleat RBC Rel Count Absolute Neuts (auto) Absolute Lymphs (auto) Absolute Monos (auto) Absolute Eos (auto) Absolute Basos (auto) Absolute Nucleated RBC Immature Gran % Immature Gran # Sodium 132 mEq/L L mEq/L (135-145) Potassium 3.9 mEq/L mEq/L (3.5-5.2) Chloride 103 mEq/L mEq/L (97-110) Carbon Dioxide 21 mEq/l L mEq/l (22-31) Anion Gap 8 mEq/L mEq/L (6-14) BUN 12 mg/dL mg/dL (7-23) Creatinine 0.7 mg/dL mg/dL (0.6-1.0) Estimated GFR > 60 Glucose 95 mg/dL mg/dL (70-100) Calcium 7.2 mg/dL L mg/dL (8.5-10.4) Total Bilirubin 0.7 mg/dL mg/dL (0.1-1.4) Conjugated Bilirubin 0.3 mg/dL mg/dL (0.0-0.5) Unconjugated Bilirubin 0.4 mg/dL mg/dL (0.0-1.1) AST 30 IU/L IU/L (14-46) ALT 41 IU/L IU/L (9-52) Alkaline Phosphatase 96 IU/L IU/L (38-126) Total Protein 6.7 g/dL g/dL (6.3-8.2) Albumin 3.4 g/dL L g/dL (3.5-5.0) Lipase 122 IU/L IU/L (23-300) Urine Color YELLOW Urine Appearance CLEAR Urine pH 6.0 (5.0-7.5) Ur Specific [place] > 1.035 H (1.002-1.030) Urine Protein NEGATIVE (NEGATIVE) Urine Ketones NEGATIVE (NEGATIVE) Urine Blood NEGATIVE (NEGATIVE) Urine Nitrate NEGATIVE (NEGATIVE) Urine Bilirubin NEGATIVE (NEGATIVE) Urine Urobilinogen NEGATIVE EU EU (0.2-1.0) Ur Leukocyte Esterase NEGATIVE (NEGATIVE) Urine RBC 1-3 /hpf /hpf (0-3) Urine WBC 1-3 /hpf /hpf (0-3) Ur Epithelial Cells TRACE /lpf /lpf (NONE-1+) Urine Bacteria TRACE /hpf H /hpf (NONE SEEN) Urine Glucose NEGATIVE (NEGATIVE) 04/10/18 16:35 WBC 9.61 10^3/uL H 10^3/uL (3.80-9.50) RBC 4.50 10^6/uL 10^6/uL (4.18-5.33) Hgb 11.6 g/dL L g/dL (12.6-16.3) Hct 36.5 % L % (38.0-47.0) MCV 81.1 fL L fL (81.5-99.8) MCH 25.8 pg L pg (27.9-34.1) MCHC 31.8 g/dL L g/dL (32.4-36.7) RDW 15.2 % % (11.5-15.2) Plt Count 367 10^3/uL 10^3/uL (150-400) MPV 8.2 fL L fL (8.7-11.7) Neut % (Auto) 78.7 % H % (39.3-74.2) Lymph % (Auto) 9.8 % L % (15.0-45.0) [place] % (Auto) 8.7 % % (4.5-13.0) Eos % (Auto) 1.2 % % (0.6-7.6) Baso % (Auto) 0.9 % % (0.3-1.7) Nucleat RBC Rel Count 0.0 % % (0.0-0.2) Absolute Neuts (auto) 7.55 10^3/uL H 10^3/uL (1.70-6.50) Absolute Lymphs (auto) 0.94 10^3/uL L 10^3/uL (1.00-3.00) Absolute Monos (auto) 0.84 10^3/uL H 10^3/uL (0.30-0.80) Absolute Eos (auto) 0.12 10^3/uL 10^3/uL (0.03-0.40) Absolute Basos (auto) 0.09 10^3/uL 10^3/uL (0.02-0.10) Absolute Nucleated RBC 0.00 10^3/uL 10^3/uL (0-0.01) Immature Gran % 0.7 % % (0.0-1.1) Immature Gran # 0.07 10^3/uL 10^3/uL (0.00-0.10) Sodium Potassium Chloride Carbon Dioxide Anion Gap BUN Creatinine Estimated GFR Glucose Calcium Total Bilirubin Conjugated Bilirubin Unconjugated Bilirubin AST ALT Alkaline Phosphatase Total Protein Albumin Lipase Urine Color Urine Appearance Urine pH Ur Specific [place] Urine Protein Urine Ketones Urine Blood Urine Nitrate Urine Bilirubin Urine Urobilinogen Ur Leukocyte Esterase Urine RBC Urine WBC Ur Epithelial Cells Urine Bacteria Urine Glucose Medications Given: Discontinued Medications Hydromorphone HCl (Dilaudid) 1 mg IVP EDNOW ONE Stop: 04/10/18 17:06 Last Admin: 04/10/18 17:18 Dose: 1 mg Sodium Chloride (Ns) 1,000 mls @ 0 mls/hr IV ONCE ONE PRN Reason: Wide Open Stop: 04/10/18 16:37 Last Admin: 04/10/18 16:36 Dose: 1,000 mls Sodium Chloride (Ns) 1,000 mls @ 0 mls/hr IV EDNOW ONE; Wide Open PRN Reason: Protocol Stop: 04/10/18 17:06 Last Admin: 04/10/18 17:19 Dose: 1,000 mls Ondansetron HCl (Zofran) 4 mg IVP EDNOW ONE Stop: 04/10/18 17:06 Last Admin: 04/10/18 17:17 Dose: 4 mg Departure - Departure Disposition: Home, Routine, Self-Care Clinical Impression: Inability to urinate Diarrhea Qualifiers: Diarrhea type: unspecified type Qualified Code(s): R19.7 - Diarrhea, unspecified Condition: Good Instructions: Acute Diarrhea (ED), Acute Urinary Retention in Women (ED) Additional Instructions: Please follow up with your primary care providers for further evaluation. Your CT scan today is stable. Stay well-hydrated. Return to the emergency department for fever, worsening pain, inability to urinate or have a bowel movement, or other worsening of condition or further concerns. Referrals: Monica Shultz MD [Primary Care Provider] - As per Instructions Report Scribed for: Aiden Caldwell Report Scribed by: Luciana Kingston Date of Report: 04/10/18 Time of Report: 21:35
[2018-04-10] MEDS ORDERED: HYDROmorphONE/DILAUDID 2 MG/ML INJ IVP ONE (17:05)
[2018-04-10] MEDS ORDERED: ONDANSETRON 4 MG/2 ML VIAL IVP ONE (17:05)
[2018-04-10] MEDS ORDERED: IOPAMIDOL (ISOVUE 370) 100 ML BTL IV ONE (17:11)
[2018-04-10 19:50] VITALS: BP 156/82
== END 2018-04-10 19:49 | disposition home or self-care (01) ==
DX: R33.9 Retention of urine, unspecified (principal); R19.7 Diarrhea, unspecified; C56.9 Malignant neoplasm of unspecified ovary; E86.9 Volume depletion, unspecified; Z87.19 Personal history of other diseases of the digestive system
CPT/HCPCS: 96374; J1170; J2405; Q9967

== ENCOUNTER → 2018-07-07 | Outpatient (CLI) | payer OTHER ==
[~2018-07-07] MED LIST: IOPAMIDOL (ISOVUE 370) 100 ML BTL IV ONE
== END ==
LOC: FIMAGING 13:33
PROVIDERS: ATTEND Surgery
DX: T81.89XA Other complications of procedures, not elsewhere classified, initial encounter (principal)
CPT/HCPCS: Q9967

== ENCOUNTER → 2018-08-05 | Outpatient (CLI) | payer OTHER ==
[~2018-08-05] MED LIST changes: +LIDOCAINE 1% 300 MG/30 ML SDV ONE
== END ==
LOC: FIMAGING 08:21
PROVIDERS: ATTEND Surgery
DX: T81.83XA Persistent postprocedural fistula, initial encounter (principal)
CPT/HCPCS: Q9967

== ENCOUNTER → 2018-10-07 | Outpatient (CLI) | payer OTHER | LOC: FIMAGING 08:56 ==